=== PATIENT | female | born 1940 | race Caucasian/White ===

== ENCOUNTER 2016-12-18 16:05 | Emergency (ER) | payer MEDICARE, OTHER ==
--- NOTE | 2016-12-18 16:16 | ER Document Report ---
ED Respiratory Problem - General Stated Complaint: DIFFICULTY BREATHING Time Seen by Provider: 12/18/16 16:11 Mode of Arrival: Stretcher Information source: Patient, Emergency Med Personnel TRAVEL OUTSIDE OF THE [place] IN LAST 30 DAYS: No - HPI Patient complains to provider of: Cough, Short of breath Onset: This morning Duration: Continuous Severity: Moderate Pain Level: 3 Context: Hx COPD, Smoker Short of Breath: Mild Chest pain/discomfort: Tightness Cough: Nonproductive Associated symptoms: Congestion, Cough, Short of breath, Wheezing Similar symptoms previously: Yes Recently seen / treated by doctor: Yes Notes: Patient is a 76-year-old female presenting to the emergency room via EMS today for complaints of shortness of breath, she states has been going on for some time now and she has not picked up her prescription for Advair and albuterol recently, she does not offer a reason as to why she is not done this, patient has a history of COPD and continues to smoke, when EMS arrived at the home she appeared to be in mild to moderate respiratory distress, they provided steroids and breathing treatments en route and on my initial evaluation patient reports feeling much better, she does admit to smoking, denies any chest pain, nonproductive cough, no fevers - Related Data Allergies/Adverse Reactions: No Known Allergies Allergy (Verified 12/07/14 14:43) Past Medical History - General Information source: Patient - Social History Smoking Status: Current Every Day Smoker Family History: Reviewed & Not Pertinent - Past Medical History Cardiac Medical History: Reports: Hx Hypertension Pulmonary Medical History: Reports: Hx COPD Endocrine Medical History: Reports: Hx Hypothyroidism Psychiatric Medical History: Reports: Hx Depression Past Surgical History: Reports: Hx Tonsillectomy - Immunizations Hx Pneumococcal Vaccination: 08/31/13 Review of Systems - Review of Systems Constitutional: No symptoms reported EENT: No symptoms reported Cardiovascular: No symptoms reported Respiratory: See HPI Gastrointestinal: No symptoms reported Genitourinary: No symptoms reported Female Genitourinary: No symptoms reported Musculoskeletal: No symptoms reported Skin: No symptoms reported Hematologic/Lymphatic: No symptoms reported Neurological/Psychological: No symptoms reported -: Yes All other systems reviewed and negative Physical Exam - Vital signs Vitals: Resp 24 H 12/18/16 17:43 Interpretation: Normal - General General appearance: Appears well, Alert - HEENT Head: Normocephalic, Atraumatic Eyes: Normal Pupils: PERRL - Respiratory Respiratory status: No respiratory distress Chest status: Nontender Breath sounds: Normal Chest palpation: Normal - Cardiovascular Rhythm: Regular Heart sounds: Normal auscultation Murmur: No - Abdominal Inspection: Normal Distension: No distension Bowel sounds: Normal Tenderness: Nontender Organomegaly: No organomegaly - Back Back: Normal, Nontender - Extremities General upper extremity: Normal inspection, Nontender, Normal color, Normal ROM , Normal temperature General lower extremity: Normal inspection, Nontender, Normal color, Normal ROM , Normal temperature, Normal weight bearing. No: Jonah's sign - Neurological Neuro grossly intact: Yes Cognition: Normal Orientation: AAOx4 Mary Coma Scale Eye Opening: Spontaneous [place] Coma Scale Verbal: Oriented Mary Coma Scale Motor: Obeys Commands [place] Coma Scale Total: 15 Speech: Normal Motor strength normal: LUE, RUE, LLE, RLE Sensory: Normal - Psychological Associated symptoms: Normal affect, Normal mood - Skin Skin Temperature: Warm Skin Moisture: Dry Skin Color: Normal Course - Re-evaluation Re-evalutation: 12/18/16 18:56 Patient reports feeling much better, she is ambulating around the room without any difficulty, symptoms likely related to COPD exacerbation as patient continues to smoke, she reports that she is out of Advair and albuterol and therefore will be per given a prescription for these medications, and otherwise discharged with instructions for follow-up and smoking cessation instructions, patient acknowledges understanding and agreement with this plan - Vital Signs Vital signs: Temp Pulse Resp BP Pulse Ox 97.7 F 57 L 20 147/81 H 98 12/18/16 19:33 12/18/16 19:33 12/18/16 19:33 12/18/16 19:33 12/18/16 19:33 - Laboratory Result Diagrams: 12/18/16 17:15 12/18/16 17:15 Laboratory results interpreted by me: 12/18/16 12/18/16 12/18/16 17:15 17:15 17:15 Hgb 9.8 L Hct 30.8 L MCV 76 L MCH 24.1 L RDW 17.1 H Seg Neutrophils % 85.2 H Lymphocytes % 10.2 L Potassium 3.3 L Est GFR (Non-Af Amer) 59 L AST 13 L TSH 10.90 H Urine Blood 12/18/16 17:15 Hgb Hct MCV MCH RDW Seg Neutrophils % Lymphocytes % Potassium Est GFR (Non-Af Amer) AST TSH Urine Blood SMALL H - Diagnostic Test Radiology reviewed: Image reviewed, Reports reviewed - EKG Interpretation by Me EKG shows normal: Sinus rhythm Rate: Bradycardia Rhythm: PVC's Discharge - Discharge Clinical Impression: COPD (chronic obstructive pulmonary disease) Qualifiers: COPD type: chronic bronchitis Chronic bronchitis type: simple Qualified Code(s) : J41.0 - Simple chronic bronchitis Condition: Stable Disposition: HOME, SELF-CARE Instructions: Chronic Obstructive Lung Disease ([facility]) Additional Instructions: Follow up with your primary care provider in one to 2 days. Return to the emergency room immediately if symptoms worsen or any additional concerns. Quit smoking Prescriptions: Albuterol Sulfate [Proair HFA Inhalation Aerosol 8.5 gm MDI] 1 puff IH Q4 PRN # 1 mdi PRN Reason: Albuterol Sulfate [Albuterol Sulfate 2.5mg/3 mL] 1 vial IH Q4 PRN #30 vial PRN Reason: Fluticasone/Salmeterol [Advair 250-50 Diskus 28 dose] 1 inh IH Q12H #1 inhaler
--- NOTE | 2016-12-18 16:55 | RADIOLOGY REPORT (SQ) ---
EXAM DESCRIPTION: CHEST SINGLE VIEW COMPLETED DATE/TIME: 12/18/2016 4:43 pm REASON FOR STUDY: db COMPARISON: 08/29/2013 EXAM PARAMETERS: NUMBER OF VIEWS: One view. TECHNIQUE: Single frontal radiographic view of the chest acquired. RADIATION DOSE: NA LIMITATIONS: None. FINDINGS: LUNGS AND PLEURA: No opacities, masses or pneumothorax. No pleural effusion. MEDIASTINUM AND HILAR STRUCTURES: No masses. Contour normal. HEART AND VASCULAR STRUCTURES: Heart normal in size. Normal vasculature. BONES: Old rib fractures on the left. HARDWARE: None in the chest. OTHER: No other significant finding. IMPRESSION: NO ACUTE RADIOGRAPHIC FINDING IN THE CHEST. TECHNICAL DOCUMENTATION: JOB ID: [id number]
[2016-12-18 17:38] LABS: APPEARANCE,URINE CLEAR; BILIRUBIN,URINE NEGATIVE (NEGATIVE); GLUCOSE, URINE NEGATIVE (NEGATIVE); KETONES,URINE NEGATIVE (NEGATIVE); LEUKOCYTE ESTERASE,URINE NEGATIVE (NEGATIVE); NITRITE,URINE NEGATIVE (NEGATIVE); PROTEIN,URINE NEGATIVE (NEGATIVE); URINE SPECIFIC GRAVITY 1.002; UROBILINOGEN,URINE NEGATIVE mg/dL (<2.0)
[2016-12-18 17:43] LABS: ABSOLUTE BASOPHILS # (AUTO) 0.1 10^3/uL (0.0-0.2); ABSOLUTE LYMPHOCYTES (AUTO) 0.7 10^3/uL (0.5-4.7); ABSOLUTE MONOCYTES (AUTO) 0.2 10^3/uL (0.1-1.4); ABSOLUTE NEUT (AUTO) 5.8 10^3/uL (1.7-8.2); BASOPHILS % (AUTO) 0.9 % (0-2); EOSINOPHILS % (AUTO) 0.2 % (0-6); HEMATOCRIT 30.8 % (36.0-47.0); HEMOGLOBIN 9.8 g/dL (12.0-15.5); HGB HCT DIFFERENCE -1.4; LYMPHOCYTES % (AUTO) 10.2 % (13-45); MEAN CORPUSCULAR HEMOGLOBIN 24.1 pg (27.0-33.4); MEAN CORPUSCULAR VOLUME 76 fl (80-97); MONOCYTES % (AUTO) 3.5 % (3-13); RED BLOOD COUNT 4.08 10^6/uL (3.72-5.28); RED CELL DISTRIBUTION WIDTH 17.1 % (11.5-14.0); SEGMENTED NEUTROPHILS % (AUTO) 85.2 % (42-78); WHITE BLOOD COUNT 6.8 10^3/uL (4.0-10.5)
[2016-12-18 18:03] LABS: ALANINE AMINOTRANSFERASE 12 U/L (9-52); ALBUMIN 3.6 g/dL (3.5-5.0); ALKALINE PHOSPHATASE 77 U/L (38-126); ANION GAP 10 (5-19); ASPARTATE AMINO TRANSFERASE 13 U/L (14-36); BILIRUBIN,DIRECT 0.3 mg/dL (0.0-0.4); BILIRUBIN,TOTAL 0.4 mg/dL (0.2-1.3); BLOOD UREA NITROGEN 9 mg/dL (7-20); CALCIUM 8.9 mg/dL (8.4-10.2); CARBON DIOXIDE 26 mmol/L (22-30); CHLORIDE 106 mmol/L (98-107); CREATININE RESULT 0.93 mg/dL (0.52-1.25); GLUCOSE 99 mg/dL (75-110); POTASSIUM 3.3 mmol/L (3.6-5.0); SODIUM 141.8 mmol/L (137-145); TOTAL PROTEIN 6.4 g/dL (6.3-8.2)
--- NOTE | 2016-12-18 18:25 | EKG REPORT ---
SEVERITY:- ABNORMAL ECG - SINUS WITH PVC VENTRICULAR PREMATURE COMPLEX BORDERLINE T ABNORMALITIES, ANT-LAT LEADS : Confirmed by: Josafat Blanco MD 18-Dec-2016 18:24:10
[2016-12-18 19:35] VITALS: BP 147/81
== END 2016-12-18 19:32 | disposition home or self-care (01) ==
LOC: ER 16:05
DX: J41.0 Simple chronic bronchitis (principal); F17.200 Nicotine dependence, unspecified, uncomplicated; I10 Essential (primary) hypertension; E03.9 Hypothyroidism, unspecified
CPT/HCPCS: 36415; 71010; 80053; 81001; 84443; 85025; 87086; 93005; 93010; 99285

== ENCOUNTER 2017-06-22 16:22 | Inpatient (IN) | payer MEDICARE, OTHER ==
--- NOTE | 2017-06-22 16:45 | RADIOLOGY REPORT (SQ) ---
EXAM DESCRIPTION: CHEST SINGLE VIEW COMPLETED DATE/TIME: 06/22/2017 4:36 pm REASON FOR STUDY: bed 10 db COMPARISON: 12/18/2016 EXAM PARAMETERS: NUMBER OF VIEWS: One view. TECHNIQUE: Single frontal radiographic view of the chest acquired. RADIATION DOSE: NA LIMITATIONS: None. FINDINGS: LUNGS AND PLEURA: No opacities, masses or pneumothorax. No pleural effusion. MEDIASTINUM AND HILAR STRUCTURES: No masses. Contour normal. HEART AND VASCULAR STRUCTURES: Heart normal in size. Normal vasculature. BONES: No acute findings. HARDWARE: None in the chest. OTHER: No other significant finding. IMPRESSION: NO ACUTE RADIOGRAPHIC FINDING IN THE CHEST. TECHNICAL DOCUMENTATION: JOB ID: [id number] [employer]- All Rights Reserved Reading location - IP/workstation name: [email or web address]
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
[2017-06-22 17:28] LABS: ABSOLUTE BASOPHILS # (AUTO) 0.1 10^3/uL (0.0-0.2); ABSOLUTE LYMPHOCYTES (AUTO) 1.2 10^3/uL (0.5-4.7); ABSOLUTE MONOCYTES (AUTO) 0.7 10^3/uL (0.1-1.4); ABSOLUTE NEUT (AUTO) 5.5 10^3/uL (1.7-8.2); BASOPHILS % (AUTO) 1.2 % (0-2); EOSINOPHILS % (AUTO) 0.5 % (0-6); HEMATOCRIT 32.1 % (36.0-47.0); HEMOGLOBIN 10.2 g/dL (12.0-15.5); LYMPHOCYTES % (AUTO) 16.3 % (13-45); MEAN CORPUSCULAR HGB CONC 31.8 g/dL (32.0-36.0); MEAN CORPUSCULAR VOLUME 76 fl (80-97); PLATELET COUNT 336 10^3/uL (150-450); RED BLOOD COUNT 4.25 10^6/uL (3.72-5.28); RED CELL DISTRIBUTION WIDTH 16.3 % (11.5-14.0); TOTAL CELLS COUNTED % (AUTO) 100 %; WHITE BLOOD COUNT 7.6 10^3/uL (4.0-10.5)
[2017-06-22] MEDS ORDERED: IPRATROPIUM/ALBUTEROL 0.5-2.5 MG/3 ML AMPUL NEB ONE ×2 (17:38→17:47)
[2017-06-22 17:42] LABS: ALANINE AMINOTRANSFERASE 20 U/L (9-52); ALBUMIN 4.1 g/dL (3.5-5.0); ALKALINE PHOSPHATASE 98 U/L (38-126); ANION GAP 12 (5-19); ASPARTATE AMINO TRANSFERASE 14 U/L (14-36); BILIRUBIN,DIRECT 0.3 mg/dL (0.0-0.4); BILIRUBIN,TOTAL 0.3 mg/dL (0.2-1.3); BLOOD UREA NITROGEN 15 mg/dL (7-20); CALCIUM 10.6 mg/dL (8.4-10.2); CARBON DIOXIDE 30 mmol/L (22-30); CHLORIDE 98 mmol/L (98-107); CREATINE KINASE 35 U/L (30-135); GLUCOSE 150 mg/dL (75-110); POTASSIUM 4.2 mmol/L (3.6-5.0); SODIUM 139.5 mmol/L (137-145); TOTAL PROTEIN 7.3 g/dL (6.3-8.2)
[2017-06-22 17:47] LABS: APPEARANCE,URINE CLEAR; BILIRUBIN,URINE NEGATIVE (NEGATIVE); COLOR,URINE STRAW; GLUCOSE, URINE NEGATIVE (NEGATIVE); KETONES,URINE NEGATIVE (NEGATIVE); LEUKOCYTE ESTERASE,URINE NEGATIVE (NEGATIVE); NITRITE,URINE NEGATIVE (NEGATIVE); PROTEIN,URINE NEGATIVE (NEGATIVE); URINE SPECIFIC GRAVITY 1.005; UROBILINOGEN,URINE NEGATIVE mg/dL (<2.0)
[2017-06-22 17:54] LABS: CREATINE KINASE MB 0.59 ng/mL (<4.55)
[2017-06-22 17:55] LABS: TROPONIN I < 0.012 ng/mL
[2017-06-22] MEDS ORDERED: ONDANSETRON HCL INJ/PF 4 MG/2 ML SDV IV PRN (18:47)
[2017-06-22] MEDS ORDERED: IPRATROPIUM/ALBUTEROL 0.5-2.5 MG/3 ML AMPUL NEB PRN (19:02)
--- NOTE | 2017-06-22 19:11 | PDOC H&P ---
History of Present Illness Admission Date/PCP: 06/22/17 18:10 Patient complains of: Short of breath History of Present Illness: YAEL FRANCISCO is a 76 year old female with long-standing COPD who continues to smoke. For the last few days she has been getting progressively more short of breath, she denies any change in her cough, has had no hemoptysis, no fevers or chills, and no sick contacts. She denies any chest pain, leg pain or swelling. Past Medical History Cardiac Medical History: Reports: Hypertension Pulmonary Medical History: Reports: Chronic Obstructive Pulmonary Disease (COPD) Neurological History Note: Very diminished hearing. Only fragmentary communication is possible Endocrine Medical History: Reports: Hypothyroidism Psychiatric Medical History: Reports: Depression Past Surgical History Past Surgical History: Reports: Tonsillectomy Social History Smoking Status: Current Every Day Smoker Hx Recreational Drug Use: No Hx Prescription Drug Abuse: No Family History Family History: Reviewed & Not Pertinent Parental Family History Reviewed: Yes Children Family History Reviewed: Yes Sibling(s) Family History Reviewed.: Yes Medication/Allergy Allergies/Adverse Reactions: No Known Allergies Allergy (Verified 06/22/17 16:29) Review of Systems All systems: reviewed and no additional remarkable complaints except as stated Physical Exam Vital Signs: Temp Pulse Resp BP Pulse Ox 24 H 171/75 H 95 06/22/17 17:01 06/22/17 17:00 06/22/17 17:17 General appearance: PRESENT: no acute distress, thin Respiratory exam: PRESENT: clear to auscultation suman, decreased breath sounds, prolonged expiratory phas Cardiovascular exam: PRESENT: RRR GI/Abdominal exam: PRESENT: soft Musculoskeletal exam: PRESENT: normal inspection Neurological exam: PRESENT: alert, CN II-XII grossly intact - Except for her hearing which is markedly diminished Psychiatric exam: PRESENT: flat affect Results Impressions: Chest X-Ray 06/22/17 16:24 IMPRESSION: NO ACUTE RADIOGRAPHIC FINDING IN THE CHEST. Assessment & Plan - Diagnosis (1) COPD exacerbation Is this a current diagnosis for this admission?: Yes Plan: Steroids, nebulizers, wean oxygen as tolerated (2) Acute chronic obstructive pulmonary disease with respiratory failure Is this a current diagnosis for this admission?: Yes (3) Decreased hearing of both ears Is this a current diagnosis for this admission?: Yes (4) Acquired hypothyroidism Is this a current diagnosis for this admission?: Yes Plan: Continue home medications
[2017-06-22] MEDS ORDERED: ENOXAPARIN SODIUM INJ 30 MG/0.3 ML DISP.SYRIN SUBCUT ONE (20:00)
[2017-06-22] MEDS: IPRATROPIUM/ALBUTEROL 0.5-2.5 MG/3 ML AMPUL NEB SCH (20:11)
--- NOTE | 2017-06-22 20:58 | EKG REPORT ---
SEVERITY:- NORMAL ECG - SINUS RHYTHM : Confirmed by: Cliff Amaya 22-Jun-2017 20:57:14
[2017-06-22] MEDS ORDERED: FAMOTIDINE 20 MG TABLET PO SCH (22:00)
[2017-06-23] MEDS: FAMOTIDINE 20 MG TABLET PO SCH ×2 (00:40→21:01)
[2017-06-23] MEDS: METHYLPREDNISOLONE INJ 40 MG/1 ML SDV IV SCH ×2 (00:41→05:56)
[2017-06-23] MEDS: IPRATROPIUM/ALBUTEROL 0.5-2.5 MG/3 ML AMPUL NEB SCH ×4 (08:08→20:24)
[2017-06-23] MEDS ORDERED: ENOXAPARIN SODIUM INJ 40 MG/0.4 ML DISP.SYRIN SUBCUT SCH (10:00)
[2017-06-23] MEDS ORDERED: NICOTINE 21 MG/24 HR PATCH.TD24 TD ONE (11:00)
--- NOTE | 2017-06-23 11:27 | PDOC PROGRESS REPORT ---
Subjective Progress Note for:: 06/23/17 Subjective:: Feeling some better but still quite short of breath with any exertion Reason For Visit: COPD EXAC Physical Exam Vital Signs: Temp Pulse Resp BP Pulse Ox 98.0 F 85 18 138/71 H 96 06/23/17 08:14 06/23/17 08:14 06/23/17 08:14 06/23/17 08:14 06/23/17 08:14 Intake & Output 06/22/17 06/23/17 06/24/17 06:59 06:59 06:59 Weight 41 kg General appearance: PRESENT: no acute distress, hard of hearing - Extremely, other - Cachectic. Appears considerably older than her chronological age Neck exam: PRESENT: other - Supraclavicular wasting Respiratory exam: PRESENT: clear to auscultation suman, decreased breath sounds - Almost none, prolonged expiratory phas Cardiovascular exam: PRESENT: RRR GI/Abdominal exam: PRESENT: soft Neurological exam: PRESENT: alert Psychiatric exam: PRESENT: normal mood Skin exam: PRESENT: warm Results Impressions: Chest X-Ray 06/22/17 16:24 IMPRESSION: NO ACUTE RADIOGRAPHIC FINDING IN THE CHEST. Assessment & Plan - Diagnosis (1) COPD exacerbation Is this a current diagnosis for this admission?: Yes Plan: Transition to oral steroids, continue nebulizers, nicotine replacement, continue aggressive pulmonary toilet, and wean oxygen as tolerated. (2) Acute chronic obstructive pulmonary disease with respiratory failure Is this a current diagnosis for this admission?: Yes (3) Decreased hearing of both ears Is this a current diagnosis for this admission?: Yes Plan: Limits conversation significantly (4) Acquired hypothyroidism Is this a current diagnosis for this admission?: Yes Plan: Continue home medications
[2017-06-23] MEDS: ENOXAPARIN SODIUM INJ 30 MG/0.3 ML DISP.SYRIN SUBCUT SCH (14:56)
[2017-06-23] MEDS: ACETAMINOPHEN 325 MG TABLET PO PRN (21:05)
[2017-06-23 22:24] LABS: ALANINE AMINOTRANSFERASE 14 U/L (9-52); ALBUMIN 3.9 g/dL (3.5-5.0); ALKALINE PHOSPHATASE 78 U/L (38-126); ANION GAP 13 (5-19); ASPARTATE AMINO TRANSFERASE 14 U/L (14-36); BILIRUBIN,DIRECT 0.1 mg/dL (0.0-0.4); BILIRUBIN,TOTAL 0.1 mg/dL (0.2-1.3); BLOOD UREA NITROGEN 25 mg/dL (7-20); CALCIUM 10.3 mg/dL (8.4-10.2); CARBON DIOXIDE 27 mmol/L (22-30); CHLORIDE 96 mmol/L (98-107); GLUCOSE 146 mg/dL (75-110); POTASSIUM 4.2 mmol/L (3.6-5.0); SODIUM 135.9 mmol/L (137-145); TOTAL PROTEIN 6.4 g/dL (6.3-8.2)
[2017-06-23 22:26] LABS: ACETAMINOPHEN < 10 ug/mL (10-30)
--- NOTE | 2017-06-24 01:12 | Physician Advisory Note ---
Physician Advisor ProgressNote .: Pursuant to the plan for [facility], I have reviewed the medical record for this patient. Physician Advisor Statement: Please consider documenting, if you agree: 1. "underweight with protein-calorie malnutrition [state mild, mod, or severe] with BMI 17.7, ____[?wt loss, ?appetite loss, ]" [if possible, give specifics on intake, wt loss, loss of SQ fat & muscle mass, diminished hand advanced manager strength, & clinical importance such as (A) nutritional assessment ordered, (B) modified diet or supplements ordered, (C) additional labs ordered, (D) prolonged wound healing time, (E) delayed infxn clearance] - Documentation already states "cachectic", & "supraclavicular wasting" ... 2. When/if stating "Respiratory Failure", please document whether that is Acute or Chronic, & supporting info (low O2 sats/pO2 or P/F ratio, associated with evidence of increased work of breathing, if Acute ["labored", or " accessory muscle use", or ...]; chronic O2 requirement amount or chronic hypercarbia if Chronic), or clarify if that dx was ruled out. Thanks, and welcome to [facility]! MD Felisa [facility] Physician Advisor - Please text, call or email if any documentation ?'s or anything I can do for you: [phone], [email or web address]
[2017-06-24] MEDS: IPRATROPIUM/ALBUTEROL 0.5-2.5 MG/3 ML AMPUL NEB SCH ×4 (08:08→21:08)
[2017-06-24] MEDS ORDERED: BISACODYL 10 MG SUPP.RECT PR ONE (10:00)
[2017-06-24] MEDS ORDERED: PREDNISONE 20 MG TABLET PO SCH (10:00)
[2017-06-24] MEDS: NICOTINE 21 MG/24 HR PATCH.TD24 TD SCH (10:09)
[2017-06-24] MEDS: ENOXAPARIN SODIUM INJ 30 MG/0.3 ML DISP.SYRIN SUBCUT SCH (10:11)
[2017-06-24] MEDS ORDERED: TUBERCULIN,PURIF.PROT.DERIV. 5 TU/0.1 ML TEST 1 ML VIAL ID PRN (11:00)
[2017-06-24] MEDS ORDERED: MAGNESIUM CITRATE 296 ML BOTTLE PO ONE (14:05)
--- NOTE | 2017-06-24 14:11 | PDOC PROGRESS REPORT ---
Subjective Progress Note for:: 06/24/17 Subjective:: Reports feeling very nauseated. States she has not moved her bowels in about 2 weeks. Reason For Visit: COPD EXAC Physical Exam Vital Signs: Temp Pulse Resp BP Pulse Ox 97.8 F 83 16 111/73 99 06/24/17 11:03 06/24/17 11:03 06/24/17 11:03 06/24/17 11:03 06/24/17 11:03 Intake & Output 06/23/17 06/24/17 06/25/17 06:59 06:59 06:59 Intake Total 600 444 Balance 600 444 Weight 41 kg General appearance: PRESENT: no acute distress, hard of hearing - Very. Exam: Cachectic, appears older than her chronological age Respiratory exam: PRESENT: clear to auscultation suman, decreased breath sounds, prolonged expiratory phas Cardiovascular exam: PRESENT: RRR GI/Abdominal exam: PRESENT: soft Extremities exam: PRESENT: other - No edema Neurological exam: PRESENT: alert Psychiatric exam: PRESENT: appropriate affect Skin exam: PRESENT: warm Results Laboratory Results: 06/23/17 21:52 06/23/17 21:52 Sodium 135.9 L Potassium 4.2 Chloride 96 L Carbon Dioxide 27 Anion Gap 13 BUN 25 H Creatinine 1.19 Est GFR ( Amer) 54 L Est GFR (Non-Af Amer) 44 L Glucose 146 H Calcium 10.3 H Total Bilirubin 0.1 L AST 14 ALT 14 Alkaline Phosphatase 78 Total Protein 6.4 Albumin 3.9 Impressions: Chest X-Ray 06/22/17 16:24 IMPRESSION: NO ACUTE RADIOGRAPHIC FINDING IN THE CHEST. Assessment & Plan - Diagnosis (1) COPD exacerbation Is this a current diagnosis for this admission?: Yes Plan: Continue current medications. I would anticipate she could be discharged once we have identified in place for her to live. Apparently she is homeless. We will need to put her on usual COPD medications. (2) Acute chronic obstructive pulmonary disease with respiratory failure Is this a current diagnosis for this admission?: Yes Plan: She was hypoxic on presentation that is now resolved. She appears to be breathing comfortably on room air. (3) Decreased hearing of both ears Is this a current diagnosis for this admission?: Yes Plan: Limits conversation significantly (4) Acquired hypothyroidism Is this a current diagnosis for this admission?: Yes Plan: Continue home medications
[2017-06-24] MEDS: ACETAMINOPHEN 325 MG TABLET PO PRN (18:24)
[2017-06-24] MEDS: FAMOTIDINE 20 MG TABLET PO SCH (21:21)
[2017-06-24] MEDS ORDERED: LISINOPRIL 10 MG TABLET PO SCH (22:00)
[2017-06-25] MEDS: IPRATROPIUM/ALBUTEROL 0.5-2.5 MG/3 ML AMPUL NEB SCH ×4 (08:42→20:27)
[2017-06-25] MEDS: PREDNISONE 20 MG TABLET PO SCH (09:50)
[2017-06-25] MEDS: AMLODIPINE BESYLATE 10 MG TABLET PO SCH (09:50)
[2017-06-25] MEDS: NICOTINE 21 MG/24 HR PATCH.TD24 TD SCH (09:50)
[2017-06-25] MEDS: POLYETHYLENE GLYCOL 3350 POWDER 17 GM/1 PACKET PO SCH (09:51)
[2017-06-25] MEDS: ENOXAPARIN SODIUM INJ 30 MG/0.3 ML DISP.SYRIN SUBCUT SCH (09:51)
[2017-06-25] MEDS: ACETAMINOPHEN 325 MG TABLET PO PRN (15:26)
[2017-06-25] MEDS: FAMOTIDINE 20 MG TABLET PO SCH (21:51)
[2017-06-25] MEDS: LISINOPRIL 10 MG TABLET PO SCH (23:42)
[2017-06-26] MEDS: ACETAMINOPHEN 325 MG TABLET PO PRN (07:32)
[2017-06-26] MEDS: IPRATROPIUM/ALBUTEROL 0.5-2.5 MG/3 ML AMPUL NEB SCH ×4 (08:04→19:32)
[2017-06-26] MEDS: NICOTINE 21 MG/24 HR PATCH.TD24 TD SCH (09:13)
[2017-06-26] MEDS: PREDNISONE 20 MG TABLET PO SCH (09:13)
[2017-06-26] MEDS: AMLODIPINE BESYLATE 10 MG TABLET PO SCH (09:13)
[2017-06-26] MEDS: POLYETHYLENE GLYCOL 3350 POWDER 17 GM/1 PACKET PO SCH ×2 (09:13→17:09)
[2017-06-26] MEDS: ENOXAPARIN SODIUM INJ 30 MG/0.3 ML DISP.SYRIN SUBCUT SCH (09:14)
[2017-06-26] MEDS: PHARMACY COMMUNICATION ORDER MC SCH (09:24)
--- NOTE | 2017-06-26 11:40 | PDOC PROGRESS REPORT ---
Subjective Progress Note for:: 06/26/17 Subjective:: No complaints. She is still has not moved her bowels. Reason For Visit: COPD EXAC Physical Exam Vital Signs: Temp Pulse Resp BP Pulse Ox 98.1 F 89 20 158/82 H 97 06/26/17 09:06 06/26/17 09:13 06/26/17 09:06 06/26/17 09:13 06/26/17 09:06 Intake & Output 06/25/17 06/26/17 06/27/17 06:59 06:59 06:59 Intake Total 2013 240 Output Total 4 Balance 2009 240 Weight 40.9 kg 42.1 kg General appearance: PRESENT: no acute distress, disheveled, hard of hearing - Extremely Respiratory exam: PRESENT: clear to auscultation suman, decreased breath sounds, prolonged expiratory phas Cardiovascular exam: PRESENT: RRR GI/Abdominal exam: PRESENT: soft Neurological exam: PRESENT: alert, oriented to person, oriented to place, oriented to time, oriented to situation Focused psych exam: PRESENT: other - Seems to have conversations with people not present. But these do not appear to cause her any problems or distress Skin exam: PRESENT: warm Results Laboratory Results: 06/23/17 21:52 Impressions: Chest X-Ray 06/22/17 16:24 IMPRESSION: NO ACUTE RADIOGRAPHIC FINDING IN THE CHEST. Assessment & Plan - Diagnosis (1) COPD exacerbation Is this a current diagnosis for this admission?: Yes Plan: Continue current medications. I would anticipate she could be discharged once we have identified in place for her to live. Apparently she is homeless. I understand an assisted living and has been identified where she can go on Wednesday. We completed a 5 day course of oral steroids and then will need to put her on usual COPD medications. (2) Acute chronic obstructive pulmonary disease with respiratory failure Is this a current diagnosis for this admission?: Yes Plan: She was hypoxic on presentation that is now resolved. She appears to be breathing comfortably on room air. (3) Decreased hearing of both ears Is this a current diagnosis for this admission?: Yes Plan: Nearly deaf. Limits conversation significantly (4) Acquired hypothyroidism Is this a current diagnosis for this admission?: Yes Plan: Continue home medications
[2017-06-26] MEDS ORDERED: BISACODYL 10 MG SUPP.RECT PR ONE (11:45)
[2017-06-26] MEDS ORDERED: DOCUSATE SODIUM 100 MG CAPSULE PO ONE (12:00)
[2017-06-26] MEDS: DOCUSATE SODIUM 100 MG CAPSULE PO SCH (17:08)
[2017-06-26] MEDS: LISINOPRIL 10 MG TABLET PO SCH (22:54)
[2017-06-26] MEDS: FAMOTIDINE 20 MG TABLET PO SCH (22:54)
[2017-06-27] MEDS: ACETAMINOPHEN 325 MG TABLET PO PRN (07:30)
[2017-06-27] MEDS: IPRATROPIUM/ALBUTEROL 0.5-2.5 MG/3 ML AMPUL NEB SCH ×2 (07:47→11:45)
[2017-06-27] MEDS: ENOXAPARIN SODIUM INJ 30 MG/0.3 ML DISP.SYRIN SUBCUT SCH (09:20)
[2017-06-27] MEDS: NICOTINE 21 MG/24 HR PATCH.TD24 TD SCH (09:21)
[2017-06-27] MEDS: PREDNISONE 20 MG TABLET PO SCH (09:21)
[2017-06-27] MEDS: DOCUSATE SODIUM 100 MG CAPSULE PO SCH ×2 (09:22→17:05)
[2017-06-27] MEDS: POLYETHYLENE GLYCOL 3350 POWDER 17 GM/1 PACKET PO SCH ×2 (09:22→17:05)
[2017-06-27] MEDS: AMLODIPINE BESYLATE 10 MG TABLET PO SCH (09:22)
[2017-06-27] MEDS: PHARMACY COMMUNICATION ORDER MC SCH (09:26)
[2017-06-27] MEDS ORDERED: LISINOPRIL 10 MG TABLET PO SCH (11:18)
--- NOTE | 2017-06-27 11:19 | PDOC PROGRESS REPORT ---
Subjective Progress Note for:: 06/27/17 Subjective:: 76 year old female with past medical history of Hypertension COPD Continued tobacco use Hearing impairment Hypothyroidism Depression She presented to the hospital on June 22 with shortness of breath and was diagnosed with COPD exacerbation and was treated with nebulizers steroids and supplemental oxygen. No complaints at present. Plan for discharge to assisted living on June 28. Reason For Visit: COPD EXAC Physical Exam Vital Signs: Temp Pulse Resp BP Pulse Ox 97.7 F 67 18 175/77 H 98 06/27/17 07:08 06/27/17 07:10 06/27/17 07:08 06/27/17 07:10 06/27/17 07:08 Intake & Output 06/26/17 06/27/17 06/28/17 06:59 06:59 06:59 Intake Total 240 1260 960 Balance 240 1260 960 Weight 42.1 kg 41.3 kg General appearance: PRESENT: no acute distress Head exam: PRESENT: normocephalic Eye exam: ABSENT: scleral icterus Ear exam: PRESENT: normal external ear exam Mouth exam: PRESENT: neck supple Neck exam: ABSENT: tracheal deviation Respiratory exam: PRESENT: symmetrical, unlabored. ABSENT: crackles Cardiovascular exam: PRESENT: RRR GI/Abdominal exam: PRESENT: normal bowel sounds, soft Rectal exam: PRESENT: deferred Neurological exam: PRESENT: alert, awake, oriented to person, oriented to place Psychiatric exam: PRESENT: appropriate affect Skin exam: ABSENT: petechiae Results Laboratory Results: 06/23/17 21:52 Impressions: Chest X-Ray 06/22/17 16:24 IMPRESSION: NO ACUTE RADIOGRAPHIC FINDING IN THE CHEST. Assessment & Plan - Diagnosis (1) Acute chronic obstructive pulmonary disease with respiratory failure Is this a current diagnosis for this admission?: Yes Plan: Due to COPD exacerbation. See below. (2) COPD exacerbation Is this a current diagnosis for this admission?: Yes Plan: Nebulizers steroids taper. Plan to discharge in the next 24 hours. (3) Decreased hearing of both ears Is this a current diagnosis for this admission?: Yes (4) Acquired hypothyroidism Is this a current diagnosis for this admission?: No (5) Depressed Is this a current diagnosis for this admission?: No (6) Hypertension Qualifiers: Hypertension type: essential hypertension Qualified Code(s): I10 - Essential (primary) hypertension Is this a current diagnosis for this admission?: Yes Plan: BP running high. Continue Norvasc. Increase lisinopril dose to 40 mg - Time Time Spent with patient: 25-34 minutes
[2017-06-27] MEDS: FAMOTIDINE 20 MG TABLET PO SCH (22:40)
[2017-06-28] MEDS: ACETAMINOPHEN 325 MG TABLET PO PRN (07:52)
[2017-06-28] MEDS: ENOXAPARIN SODIUM INJ 30 MG/0.3 ML DISP.SYRIN SUBCUT SCH (09:18)
[2017-06-28] MEDS: AMLODIPINE BESYLATE 10 MG TABLET PO SCH (09:19)
[2017-06-28] MEDS: PREDNISONE 20 MG TABLET PO SCH (09:20)
[2017-06-28] MEDS: DOCUSATE SODIUM 100 MG CAPSULE PO SCH (09:20)
[2017-06-28] MEDS: NICOTINE 21 MG/24 HR PATCH.TD24 TD SCH (09:21)
[2017-06-28] MEDS: POLYETHYLENE GLYCOL 3350 POWDER 17 GM/1 PACKET PO SCH (09:32)
--- NOTE | 2017-06-28 10:32 | PDOC DISCHARGE SUMMARY ---
General - Admit/Disc Date/PCP Admission Date/Primary Care Provider: 06/22/17 18:10 No PCP Listed Discharge Date: 06/28/17 - Discharge Diagnosis (1) Acute chronic obstructive pulmonary disease with respiratory failure Is this a current diagnosis for this admission?: Yes (2) COPD exacerbation Is this a current diagnosis for this admission?: Yes (3) Decreased hearing of both ears Is this a current diagnosis for this admission?: Yes (4) Depressed Is this a current diagnosis for this admission?: No (5) Hypertension Is this a current diagnosis for this admission?: Yes - Additional Information Discharge Diet: As Tolerated Discharge Activity: Activity As Tolerated Prescriptions: Famotidine [Pepcid 20 mg Tablet] 20 mg PO QHS 5 Days #5 tablet Lisinopril [Prinivil 10 mg Tablet] 40 mg PO QHS 20 Days #20 tablet Albuterol Sulfate [Proair Respiclick] 90 mcg IH Q4HP PRN 30 Days #1 aer.pow.ba PRN Reason: Shortness Of Breath Amlodipine Besylate [Norvasc 10 mg Tablet] 10 mg PO DAILY 20 Days #20 tablet Prednisone [Deltasone 20 mg Tablet] 20 mg PO DAILY 5 Days #5 tablet Home Medications: Albuterol Sulfate [Proair Respiclick] 90 mcg IH Q4HP PRN 30 Days #1 aer.pow.ba 06/28/17 Amlodipine Besylate [Norvasc 10 mg Tablet] 10 mg PO DAILY 20 Days #20 tablet Docusate Sodium [Colace 100 mg Capsule] 100 mg PO BID capsule 06/28/17 Famotidine [Pepcid 20 mg Tablet] 20 mg PO QHS 5 Days #5 tablet 06/28/17 Lisinopril [Prinivil 10 mg Tablet] 40 mg PO QHS 20 Days #20 tablet 06/28/17 Nicotine [Nicoderm 21 mg/24 Hr Transderm Patch] 1 each TD DAILY patch.td24 Polyethylene Glycol 3350 [Miralax Powder 17 gm/Packet] 17 gm PO DAILY PRN powd.pack 06/28/17 Prednisone [Deltasone 20 mg Tablet] 20 mg PO DAILY 5 Days #5 tablet 06/28/17 History of Present Illness History of Present Illness: 76 year old female with past medical history of Hypertension COPD Continued tobacco use Hearing impairment Depression She presented to the hospital on June 22 with shortness of breath and was diagnosed with COPD exacerbation and was treated with nebulizers steroids and supplemental oxygen. BP was high and she was started on Amlodipine and Lisinopril. Her breathing has improved. No cough. Stable for discharge back to assisted living with PCP follow up within 1 week. Hospital Course Hospital Course: As above Physical Exam Vital Signs: Temp Pulse Resp BP Pulse Ox 98.1 F 74 16 167/80 H 99 06/28/17 07:25 06/28/17 07:25 06/28/17 07:25 06/28/17 07:25 06/28/17 07:25 Intake & Output 06/27/17 06/28/17 06/29/17 06:59 06:59 06:59 Intake Total 1260 2040 Balance 1260 2040 Weight 41.3 kg 41.3 kg 41.3 kg General appearance: PRESENT: no acute distress Head exam: PRESENT: normocephalic Respiratory exam: PRESENT: clear to auscultation suman, symmetrical, unlabored Cardiovascular exam: PRESENT: RRR Results Laboratory Results: 06/23/17 21:52 Impressions: Chest X-Ray 06/22/17 16:24 IMPRESSION: NO ACUTE RADIOGRAPHIC FINDING IN THE CHEST. Qualifiers - * PATEINT BEING DISCHARGED WITH ANY OF THE FOLLOWING DIAGNOSIS?: No Plan Time Spent: Greater than 30 Minutes
[2017-06-28 13:10] VITALS: BP 124/67
[2017-06-29] MEDS ORDERED: PREDNISONE 20 MG TABLET PO SCH (10:00)
== END 2017-06-28 14:10 | DRG 189 ==
LOC: ER 16:22 → EH 18:10 → UNDOADMIN 18:10 → 2S 06-23 01:50
PROVIDERS: ADMIT Internal Medicine; ATTEND Internal Medicine
DX: J96.01 Acute respiratory failure with hypoxia (principal); E44.0 Moderate protein-calorie malnutrition; J44.1 Chronic obstructive pulmonary disease with (acute) exacerbation; Z68.1 Body mass index [BMI] 19.9 or less, adult; I10 Essential (primary) hypertension; E03.9 Hypothyroidism, unspecified; H91.93 Unspecified hearing loss, bilateral; F17.210 Nicotine dependence, cigarettes, uncomplicated
CPT/HCPCS: 36415; 71045; 80053; 80307; 81001; 82550; 82553; 83540; 83605; 84484; 85025; 93005; 93010; 94640; 99285; J1650; J2920; J3490; J7512; J7620

== ENCOUNTER 2017-08-14 12:29 | Emergency (ER) | payer MEDICARE, OTHER ==
[2017-08-14] MEDS ORDERED: ASPIRIN 81 MG TABLET, CHEWABLE PO ONE (13:05)
[2017-08-14] MEDS ORDERED: IPRATROPIUM/ALBUTEROL 0.5-2.5 MG/3 ML AMPUL NEB ONE (13:06)
--- NOTE | 2017-08-14 13:20 | ER Document Report ---
ED General - General Chief Complaint: Cold Symptoms Stated Complaint: SINUS PRESSURE Time Seen by Provider: 08/14/17 13:05 Notes: 77-year-old female patient to the emergency department via EMS for evaluation of shortness of breath. States that she feels like it is hard to get air in. History of COPD. Denies any fever. Does have cough and wheezing. Patient is quite vague on her symptoms. There may be some dementia versus just severe hard of hearing. Denies any significant chest pain. TRAVEL OUTSIDE OF THE [place] IN LAST 30 DAYS: No - HPI Onset: Yesterday Onset/Duration: Gradual Severity: Mild Pain Level: 1 - Related Data Allergies/Adverse Reactions: No Known Allergies Allergy (Verified 08/14/17 12:31) Past Medical History - General Information source: Patient - Social History Smoking Status: Former Smoker Cigarette use (# per day): No Frequency of alcohol use: None Drug Abuse: None Lives with: Family Family History: Reviewed & Not Pertinent - Past Medical History Cardiac Medical History: Reports: Hx Hypertension Pulmonary Medical History: Reports: Hx COPD Endocrine Medical History: Reports: Hx Hypothyroidism Renal/ Medical History: Denies: Hx Peritoneal Dialysis Psychiatric Medical History: Reports: Hx Depression Past Surgical History: Reports: Hx Tonsillectomy - Immunizations Hx Pneumococcal Vaccination: 08/31/13 Review of Systems - Review of Systems Constitutional: No symptoms reported EENT: No symptoms reported Cardiovascular: No symptoms reported Respiratory: Cough, Short of breath Gastrointestinal: No symptoms reported Genitourinary: No symptoms reported Female Genitourinary: No symptoms reported Musculoskeletal: No symptoms reported Skin: No symptoms reported Hematologic/Lymphatic: No symptoms reported Neurological/Psychological: No symptoms reported Physical Exam - Vital signs Vitals: Temp Pulse Resp BP Pulse Ox 98.2 F 81 22 H 137/71 H 96 08/14/17 12:36 08/14/17 12:36 08/14/17 12:36 08/14/17 12:36 08/14/17 12:36 Interpretation: Normal - General General appearance: Appears well, Alert - HEENT Head: Normocephalic, Atraumatic Eyes: Normal Pupils: PERRL - Respiratory Respiratory status: No respiratory distress Chest status: Nontender Breath sounds: Wheezing, Other - Faint expiratory wheeze Chest palpation: Normal - Cardiovascular Rhythm: Regular Heart sounds: Normal auscultation Murmur: No - Abdominal Inspection: Normal Distension: No distension Bowel sounds: Normal Tenderness: Nontender Organomegaly: No organomegaly - Back Back: Normal, Nontender - Extremities General upper extremity: Normal inspection, Nontender, Normal color, Normal ROM , Normal temperature General lower extremity: Normal inspection, Nontender, Normal color, Normal ROM , Normal temperature, Normal weight bearing. No: Jonah's sign - Neurological Neuro grossly intact: Yes Cognition: Normal Orientation: AAOx4 Cosmos Coma Scale Eye Opening: Spontaneous Cosmos Coma Scale Verbal: Oriented Mary Coma Scale Motor: Obeys Commands Mary Coma Scale Total: 15 Speech: Normal Motor strength normal: LUE, RUE, LLE, RLE Sensory: Normal - Psychological Associated symptoms: Normal affect, Normal mood - Skin Skin Temperature: Warm Skin Moisture: Dry Skin Color: Normal Course - Re-evaluation Re-evalutation: 08/14/17 14:26 Chest x-ray relatively unchanged from prior. Labs baseline. Likely patient experienced some mild COPD exacerbation. Will treat aggressively based on her poor history. At this time though I think patient is stable for DC back to the [facility]. - Vital Signs Vital signs: Temp Pulse Resp BP Pulse Ox 98.2 F 81 22 H 137/71 H 96 08/14/17 12:36 08/14/17 12:36 08/14/17 12:36 08/14/17 12:36 08/14/17 13:38 - Laboratory Result Diagrams: 08/14/17 13:24 08/14/17 13:24 Laboratory results interpreted by me: 08/14/17 08/14/17 13:24 13:24 Hgb 10.6 L Hct 33.7 L MCV 77 L MCH 24.2 L MCHC 31.4 L RDW 17.7 H Est GFR ( Amer) 57 L Est GFR (Non-Af Amer) 47 L Calcium 10.3 H - EKG Interpretation by Ma EKG shows normal: Sinus rhythm, Craig, Intervals, QRS Complexes, ST-T Waves - Nonspecific T-wave abnormalities laterally. No change from prior. When compared to previous EKG there are: No significant change Discharge - Discharge Clinical Impression: COPD exacerbation Condition: Good Disposition: HOME, SELF-CARE Instructions: Chronic Obstructive Lung Disease ([facility]) Prescriptions: Amoxicillin 1 tab PO TID #21 tab Prednisone [Deltasone 20 mg Tablet] 3 tab PO DAILY 5 Days #15 tablet
[2017-08-14 13:37] LABS: ABSOLUTE BASOPHILS # (AUTO) 0.1 10^3/uL (0.0-0.2); ABSOLUTE EOSINOPHILS # (AUTO) 0.1 10^3/uL (0.0-0.6); ABSOLUTE LYMPHOCYTES (AUTO) 1.7 10^3/uL (0.5-4.7); ABSOLUTE MONOCYTES (AUTO) 0.8 10^3/uL (0.1-1.4); ABSOLUTE NEUT (AUTO) 7.6 10^3/uL (1.7-8.2); BASOPHILS % (AUTO) 1.4 % (0-2); EOSINOPHILS % (AUTO) 0.5 % (0-6); HEMATOCRIT 33.7 % (36.0-47.0); HEMOGLOBIN 10.6 g/dL (12.0-15.5); LYMPHOCYTES % (AUTO) 16.6 % (13-45); MEAN CORPUSCULAR HEMOGLOBIN 24.2 pg (27.0-33.4); MEAN CORPUSCULAR HGB CONC 31.4 g/dL (32.0-36.0); MEAN CORPUSCULAR VOLUME 77 fl (80-97); MONOCYTES % (AUTO) 7.7 % (3-13); PLATELET COUNT 322 10^3/uL (150-450); RED BLOOD COUNT 4.38 10^6/uL (3.72-5.28); RED CELL DISTRIBUTION WIDTH 17.7 % (11.5-14.0); SEGMENTED NEUTROPHILS % (AUTO) 73.8 % (42-78); TOTAL CELLS COUNTED % (AUTO) 100 %; WHITE BLOOD COUNT 10.3 10^3/uL (4.0-10.5)
[2017-08-14 13:55] LABS: ALANINE AMINOTRANSFERASE 14 U/L (9-52); ALBUMIN 3.9 g/dL (3.5-5.0); ALKALINE PHOSPHATASE 101 U/L (38-126); ANION GAP 9 (5-19); ASPARTATE AMINO TRANSFERASE 21 U/L (14-36); BILIRUBIN,DIRECT 0.2 mg/dL (0.0-0.4); BILIRUBIN,TOTAL 0.2 mg/dL (0.2-1.3); BLOOD UREA NITROGEN 20 mg/dL (7-20); CALCIUM 10.3 mg/dL (8.4-10.2); CARBON DIOXIDE 29 mmol/L (22-30); CHLORIDE 106 mmol/L (98-107); CREATINE KINASE 41 U/L (30-135); GLUCOSE 100 mg/dL (75-110); POTASSIUM 4.9 mmol/L (3.6-5.0); SODIUM 143.7 mmol/L (137-145)
--- NOTE | 2017-08-14 14:01 | RADIOLOGY REPORT (SQ) ---
EXAM DESCRIPTION: CHEST SINGLE VIEW COMPLETED DATE/TIME: 08/14/2017 1:45 pm REASON FOR STUDY: Shortness of breath. COMPARISON: 06/22/2017. EXAM PARAMETERS: NUMBER OF VIEWS: One view. TECHNIQUE: Single frontal radiographic view of the chest acquired. RADIATION DOSE: NA LIMITATIONS: None. FINDINGS: LUNGS AND PLEURA: Hyperinflation. No acute infiltrates or effusions. Calcified granuloma ta right lung base. Hyperinflation. MEDIASTINUM AND HILAR STRUCTURES: No masses. Contour normal. HEART AND VASCULAR STRUCTURES: The heart is normal with normal pulmonary vasculature. BONES: Old healed left rib fractures. . HARDWARE: None in the chest. OTHER: Chest leads in place. IMPRESSION: No significant interval change. TECHNICAL DOCUMENTATION: JOB ID: [id number] [employer]- All Rights Reserved Reading location - IP/workstation name: [email or web address]
[2017-08-14 14:07] LABS: CREATINE KINASE MB 0.74 ng/mL (<4.55); NT PRO BNP 400 pg/mL (<450)
[2017-08-14 14:08] LABS: TROPONIN I < 0.012 ng/mL
[2017-08-14] MEDS ORDERED: METHYLPREDNISOLONE INJ 125 MG/2 ML SDV IV ONE (14:25)
[2017-08-14] MEDS ORDERED: CEFTRIAXONE 1 GM/D5W RTU 1 GM/50 ML RTUPB IV ONE (14:26)
--- NOTE | 2017-08-14 16:20 | EKG REPORT ---
SEVERITY:- BORDERLINE ECG - SINUS RHYTHM BORDERLINE T WAVE ABNORMALITIES : Confirmed by: Jennifer Vega MD 14-Aug-2017 16:20:12
[2017-08-14 16:27] VITALS: BP 147/56
== END 2017-08-14 16:26 | disposition home or self-care (01) ==
LOC: ER 12:29
DX: J44.1 Chronic obstructive pulmonary disease with (acute) exacerbation (principal); R06.02 Shortness of breath; I10 Essential (primary) hypertension; R05 Cough; R94.31 Abnormal electrocardiogram [ECG] [EKG]; Z87.891 Personal history of nicotine dependence
CPT/HCPCS: 93005; 94640; 99284; 96375; 96365; 36415; 82553; 82550; 85025; 80053; 84484; 83880; 71045; 93010; A9270 ×2; J2930; J0696; J7620

== ENCOUNTER 2018-10-05 12:03 | Inpatient (IN) | payer MEDICARE, OTHER, MEDICAID ==
--- NOTE | 2018-10-05 13:05 | RADIOLOGY REPORT (SQ) ---
EXAM DESCRIPTION: HIP LEFT AP/LATERAL COMPLETED DATE/TIME: 10/05/2018 12:56 pm REASON FOR STUDY: bone tenderness COMPARISON: None. NUMBER OF VIEWS: Two views. TECHNIQUE: AP and frog-leg view of the left hip. LIMITATIONS: None. FINDINGS: MINERALIZATION: Normal. LEFT HIP: Mild joint space narrowing consistent with osteoarthritis. No acute fracture or dislocatio n. OPPOSITE HIP: Mild joint space narrowing. SOFT TISSUES: No findings. OTHER: No other significant finding. IMPRESSION: Mild bilateral degenerative changes. No acute fracture or dislocation. TECHNICAL DOCUMENTATION: JOB ID: [id number] [employer]- All Rights Reserved Reading location - IP/workstation name: [email or web address]
[2018-10-05] MEDS ORDERED: LORAZEPAM 0.5 MG TABLET PO ONE (13:14)
--- NOTE | 2018-10-05 13:33 | ER Document Report ---
Entered by GERARDO DAMON SCRIBE 10/05/18 1321 Acting as scribe for:CYNDEE MONTERO MD ED Hip Pain/Injury - General Chief Complaint: Hip Pain Stated Complaint: FALL/HIP PAIN Time Seen by Provider: 10/05/18 13:01 Mode of Arrival: Medic Information source: Patient Notes: 78-year-old female that presents to the emergency department today with complaints of left hip pain. Patient states she has had left hip and left knee pain for about 1 week and today she was walking from her room at the [facility] to the cafeteria when her left leg gave out and she fell. Patient complains of increased pain to her left hip now since the fall. TRAVEL OUTSIDE OF THE [place] IN LAST 30 DAYS: No - Related Data Allergies/Adverse Reactions: No Known Allergies Allergy (Verified 10/05/18 12:28) Past Medical History - General Information source: Patient - Social History Smoking Status: Former Smoker Cigarette use (# per day): No Frequency of alcohol use: None Drug Abuse: None Lives with: Family Family History: Reviewed & Not Pertinent Patient has suicidal ideation: No Patient has homicidal ideation: No - Past Medical History Cardiac Medical History: Reports: Hx Hypertension Pulmonary Medical History: Reports: Hx COPD Endocrine Medical History: Reports: Hx Hypothyroidism Psychiatric Medical History: Reports: Hx Depression Past Surgical History: Reports: Hx Tonsillectomy - Immunizations Hx Pneumococcal Vaccination: 08/31/13 Review of Systems - Review of Systems Constitutional: No symptoms reported EENT: No symptoms reported Cardiovascular: No symptoms reported Respiratory: No symptoms reported Gastrointestinal: No symptoms reported Genitourinary: No symptoms reported Female Genitourinary: No symptoms reported Musculoskeletal: See HPI, Joint pain - left hip pain Skin: No symptoms reported Hematologic/Lymphatic: No symptoms reported Neurological/Psychological: No symptoms reported -: Yes All other systems reviewed and negative Physical Exam - Vital signs Vitals: Temp Pulse Resp BP Pulse Ox 98.0 F 79 16 108/49 L 95 10/05/18 12:27 10/05/18 12:27 10/05/18 12:27 10/05/18 12:27 10/05/18 12:27 - Notes Notes: Physical Exam: General: Alert, appears well. HEENT: Normocephalic. Atraumatic. PERRL. Extraocular movements intact. Oropharynx clear. Dry mucous membranes. Neck: Supple. Non-tender. Respiratory: No respiratory distress. Rhonchi with forced cough. Cardiovascular: Regular rate and rhythm. Abdominal: Normal Inspection. Non-tender. No distension. Normal Bowel Sounds. Back: Non-tender. No deformity or step off. Extremities: Upper extremities: Normal inspection. Normal ROM. Lower extremities: Right leg is fully extended, flat on the bed. Left hip and knee are flexed. Mild tenderness with palpation of the left hip. Severe pain with external rotation of left leg. Pelvis is stable. Neurological: Normal cognition. AAOx4. Normal speech. Psychological: Normal affect. Normal Mood. Skin: Warm. Dry. Normal color. Course - Re-evaluation Re-evalutation: 10/05/18 15:06 Patient's hemoglobin 7.7, this is down 3 g from 14 months ago. Her BUN is 42, this is double what the BUN was 14 months ago, creatinine is up by approximately 50%, so I suspect that her anemia is actually worse than it initially appears due to her being dehydrated. The red cell indices show that this is an iron deficiency anemia. 10/05/18 16:32 Stool was heme negative. We will get orthostatics as her blood pressure was a little lower today than it was a year ago. - Vital Signs Vital signs: Temp Pulse Resp BP Pulse Ox 98.5 F 74 20 152/64 H 97 10/05/18 18:40 10/05/18 18:40 10/05/18 18:40 10/05/18 18:40 10/05/18 18:40 - Laboratory Result Diagrams: 10/05/18 13:30 10/05/18 13:30 Laboratory results interpreted by me: 10/05/18 10/05/18 10/05/18 13:30 13:30 13:30 WBC 17.2 H Hgb 7.7 L Hct 25.3 L MCV 68 L MCH 20.8 L MCHC 30.6 L RDW 17.5 H Seg Neuts % (Manual) 97 H Lymphocytes % (Manual) 2 L Monocytes % (Manual) 1 L Abs Neuts (Manual) 16.7 H Abs Lymphs (Manual) 0.3 L Sodium 136.8 L BUN 42 H Creatinine 1.66 H Est GFR ( Amer) 36 L Est GFR (Non-Af Amer) 30 L Iron < 10.1 L Urine Blood Ur Leukocyte Esterase Crossmatch 10/05/18 10/05/18 14:42 15:20 WBC Hgb Hct MCV MCH MCHC RDW Seg Neuts % (Manual) Lymphocytes % (Manual) Monocytes % (Manual) Abs Neuts (Manual) Abs Lymphs (Manual) Sodium BUN Creatinine Est GFR ( Amer) Est GFR (Non-Af Amer) Iron Urine Blood SMALL H Ur Leukocyte Esterase SMALL H Crossmatch See Detail - Diagnostic Test Radiology reviewed: Image reviewed, Reports reviewed - Left hip x-rays and pelvic x-rays do not show fractures. - EKG Interpretation by Dc EKG shows normal: Sinus rhythm, Buda, Intervals, QRS Complexes. abnormal: ST-T Waves - Line anterior lateral T abnormalities Rate: Normal - 74 Rhythm: NSR When compared to previous EKG there are: No significant change - Consults Dr. Holder Time consulted: 18:00 Consulted provider: will come to ER Critical Care Note - Critical Care Note Total time excluding time spent on procedures (mins): 35 Discharge - Discharge Clinical Impression: Left hip pain Iron deficiency anemia Qualifiers: Iron deficiency anemia type: unspecified iron deficiency Qualified Code(s): D50.9 - Iron deficiency anemia, unspecified Hypotension Qualifiers: Hypotension type: unspecified hypotension type Qualified Code(s): I95.9 - Hypotension, unspecified Fall Qualifiers: Encounter type: initial encounter Qualified Code(s): W19.XXXA - Unspecified fall, initial encounter Hard of hearing Qualifiers: Hearing loss type: unspecified Laterality: bilateral Qualified Code(s): H91.93 - Unspecified hearing loss, bilateral Leukocytosis Qualifiers: Leukocytosis type: unspecified Qualified Code(s): D72.829 - Elevated white blood cell count, unspecified Condition: Good Disposition: ADMITTED INPATIENT Admitting Provider: Glory (Hospitalist) Unit Admitted: Telemetry I personally performed the services described in the documentation, reviewed and edited the documentation which was dictated to the scribe in my presence, and it accurately records my words and actions.
[2018-10-05 14:04] LABS: ALANINE AMINOTRANSFERASE 11 U/L (9-52); ALBUMIN 3.8 g/dL (3.5-5.0); ALKALINE PHOSPHATASE 86 U/L (38-126); ANION GAP 10 (5-19); ASPARTATE AMINO TRANSFERASE 20 U/L (14-36); BILIRUBIN,DIRECT 0.4 mg/dL (0.0-0.4); BILIRUBIN,TOTAL 0.4 mg/dL (0.2-1.3); BLOOD UREA NITROGEN 42 mg/dL (7-20); CALCIUM 10.2 mg/dL (8.4-10.2); CARBON DIOXIDE 27 mmol/L (22-30); CHLORIDE 100 mmol/L (98-107); CREATINE KINASE 100 U/L (30-135); GLUCOSE 102 mg/dL (75-110); TOTAL PROTEIN 6.7 g/dL (6.3-8.2)
[2018-10-05 14:46] LABS: HEMATOCRIT 25.3 % (36.0-47.0); MEAN CORPUSCULAR HEMOGLOBIN 20.8 pg (27.0-33.4); MEAN CORPUSCULAR HGB CONC 30.6 g/dL (32.0-36.0); MEAN CORPUSCULAR VOLUME 68 fl (80-97); PLATELET COUNT 420 10^3/uL (150-450); RED BLOOD COUNT 3.72 10^6/uL (3.72-5.28); RED CELL DISTRIBUTION WIDTH 17.5 % (11.5-14.0); WHITE BLOOD COUNT 17.2 10^3/uL (4.0-10.5)
[2018-10-05 14:50] LABS: HEMOGLOBIN 7.7 g/dL (12.0-15.5)
--- NOTE | 2018-10-05 14:50 | RADIOLOGY REPORT (SQ) ---
EXAM DESCRIPTION: PELVIS W/OBLIQUES COMPLETED DATE/TIME: 10/05/2018 2:37 pm REASON FOR STUDY: Fall, right hip and groin pain COMPARISON: None. NUMBER OF VIEWS: Two views. TECHNIQUE: AP and frog-leg view of the right hip. LIMITATIONS: None. FINDINGS: MINERALIZATION: Osteopenia. RIGHT HIP: No fracture or dislocation. No worrisome bone lesions. OPPOSITE HIP: No fracture or dislocation. No worrisome bone lesions. SOFT TISSUES: No findings. OTHER: No other significant finding. IMPRESSION: NEGATIVE STUDY OF THE RIGHT HIP. NO RADIOGRAPHIC EVIDENCE OF ACUTE INJURY. COMMENT: Pelvic fractures are often occult on plain radiographs. If strong clinical suspicion for f racture, recommend CT or MR. TECHNICAL DOCUMENTATION: JOB ID: [id number] [employer]- All Rights Reserved Reading location - IP/workstation name: [email or web address]
[2018-10-05 14:52] LABS: ABSOLUTE LYMPHOCYTES# (MANUAL) 0.3 10^3/uL (0.5-4.7); ABSOLUTE MONOCYTES # (MANUAL) 0.2 10^3/uL (0.1-1.4); BASOPHILS % (MANUAL) 0 % (0-2); EOSINOPHILS % (MANUAL) 0 % (0-6); LYMPHOCYTES % (MANUAL) 2 % (13-45); MONOCYTES % (MANUAL) 1 % (3-13); SEGMENTED NEUTROPHILS % (MAN) 97 % (42-78); TOTAL CELLS COUNTED 100
[2018-10-05 14:53] LABS: ANISOCYTOSIS 1+; HYPOCHROMASIA 1+; OVALOCYTES SLIGHT; PLATELET COMMENT ADEQUATE; POIKILOCYTOSIS SLIGHT; POLYCHROMASIA SLIGHT; TOXIC GRANULATION 1+
[2018-10-05 15:05] LABS: APPEARANCE,URINE CLEAR; BILIRUBIN,URINE NEGATIVE (NEGATIVE); COLOR,URINE STRAW; GLUCOSE, URINE NEGATIVE (NEGATIVE); KETONES,URINE NEGATIVE (NEGATIVE); LEUKOCYTE ESTERASE,URINE SMALL (NEGATIVE); NITRITE,URINE NEGATIVE (NEGATIVE); PROTEIN,URINE NEGATIVE (NEGATIVE); UROBILINOGEN,URINE NEGATIVE mg/dL (<2.0)
[2018-10-05] MEDS ORDERED: NORMAL SALINE 1000 ML 1,000 ML IV ONE (15:06)
[2018-10-05] MEDS ORDERED: NORMAL SALINE 250 ML IV PRN (16:25)
[2018-10-05 16:34] LABS: ABSOLUTE RETICS # 0.039 10^6/uL (0.028-0.122); RETICULOCYTE COUNT (AUTO) 1.06 % (0.66-2.85)
[2018-10-05 18:34] LABS: FOLATE 8.39 ng/mL (>2.76)
[2018-10-05 18:40] LABS: IRON(TIBC) < 10.1 ug/dL (37-170)
--- NOTE | 2018-10-05 18:48 | PDOC H&P ---
History of Present Illness Admission Date/PCP: 10/05/18 18:22 MAURY CHANG History of Present Illness: YAEL FRANCISCO is a 78 year old female who resides at an assisted living facility in the area who was in her usual state of health when she was walking to the cafeteria and felt weak and her legs gave out on her and she fell. She says her hip is been aching her for about a week. She said prior to this she has not fallen or suffered any kind of trauma. Please note she is very hard of hearing any have to yell into her left ear for her to hear you. She was brought to the ER and fractures of the left hip and the pelvis show no evidence of fracture. She says is a little sore and it aches. Her hemoglobin was noted to be low with a low MCV. She normally has some chronic kidney disease with a creatinine of around 1.2, and her BUN and creatinine were elevated today. Apparently she takes Lasix and HCTZ at home for blood pressure. Looks like those were last filled on September 26 and the respectively. She is being admitted for some packed red blood cells, some IV fluids, checking of her iron levels, and physical therapy. She was also hypertensive whenever I saw her but this is probably because she was in pain at that time had not gotten any pain medication. Past Medical History Cardiac Medical History: Reports: Hypertension Pulmonary Medical History: Reports: Chronic Obstructive Pulmonary Disease (COPD) Endocrine Medical History: Reports: Hypothyroidism Psychiatric Medical History: Reports: Depression Past Surgical History Past Surgical History: Reports: Tonsillectomy Social History Lives with: Family Smoking Status: Former Smoker Frequency of Alcohol Use: Rare Hx Recreational Drug Use: No Drugs: None Hx Prescription Drug Abuse: No Family History Family History: Reviewed & Not Pertinent, Arthritis, COPD, Hypertension Parental Family History Reviewed: Yes - Arthritis, hypertension, COPD Children Family History Reviewed: Yes - Hypertension Sibling(s) Family History Reviewed.: Unknown Medication/Allergy Home Medications: Albuterol Sulfate [Proair Respiclick] 90 mcg IH Q4HP PRN 30 Days #1 aer.[email or web address] 06/28/17 Amlodipine Besylate [Norvasc 10 mg Tablet] 10 mg PO DAILY 20 Days #20 tablet 06/28/17 Docusate Sodium [Colace 100 mg Capsule] 100 mg PO BID capsule 06/28/17 Famotidine [Pepcid 20 mg Tablet] 20 mg PO QHS 5 Days #5 tablet 06/28/17 Lisinopril [Prinivil 10 mg Tablet] 40 mg PO QHS 20 Days #20 tablet 06/28/17 Nicotine [Nicoderm 21 mg/24 Hr Transderm Patch] 1 each TD DAILY patch.td24 06/28/17 Polyethylene Glycol 3350 [Miralax Powder 17 gm/Packet] 17 gm PO DAILY PRN powd.pack 06/28/17 Prednisone [Deltasone 20 mg Tablet] 20 mg PO DAILY 5 Days #5 tablet 06/28/17 Amoxicillin 1 tab PO TID #21 tab 08/14/17 Prednisone [Deltasone 20 mg Tablet] 3 tab PO DAILY 5 Days #15 tablet 08/14/17 Allergies/Adverse Reactions: No Known Allergies Allergy (Verified 10/05/18 12:28) Review of Systems All systems: reviewed and no additional remarkable complaints except as stated - It was difficult, but all systems were reviewed and were negative except as noted in the HPI Physical Exam Vital Signs: Temp Pulse Resp BP Pulse Ox 98.5 F 72 20 155/71 H 98 10/05/18 18:19 10/05/18 18:19 10/05/18 18:19 10/05/18 18:19 10/05/18 18:19 Intake & Output 10/04/18 10/05/18 10/06/18 06:59 06:59 06:59 Intake Total 0 Balance 0 Weight 35.3 kg General appearance: PRESENT: no acute distress, cooperative, disheveled, hard of hearing, thin Head exam: PRESENT: atraumatic, normocephalic Eye exam: PRESENT: conjunctiva pale, EOMI, PERRLA. ABSENT: conjunctival injection, nystagmus, scleral icterus Ear exam: PRESENT: normal external ear exam Mouth exam: PRESENT: dry mucosa, neck supple Teeth exam: PRESENT: poor dentation Throat exam: ABSENT: post pharyngeal erythema Neck exam: PRESENT: full ROM. ABSENT: carotid bruit, JVD, lymphadenopathy, meningismus, tenderness, thyromegaly Respiratory exam: PRESENT: clear to auscultation [place], symmetrical, unlabored. ABSENT: accessory muscle use, chest wall tenderness, crackles, prolonged expiratory phas, rhonchi, tachypnea, wheezes Cardiovascular exam: PRESENT: RRR, +S1, +S2 Pulses: PRESENT: normal carotid pulses Vascular exam: PRESENT: pallor GI/Abdominal exam: PRESENT: normal bowel sounds, soft. ABSENT: distended, guarding, rebound, tenderness Extremities exam: ABSENT: clubbing, pedal edema Musculoskeletal exam: PRESENT: normal inspection, tenderness - Left hip is tender but not deformed. ABSENT: deformity Neurological exam: PRESENT: alert, awake, oriented to person, oriented to place, oriented to situation, CN II-XII grossly intact. ABSENT: motor sensory deficit - Other than being very hard of hearing Psychiatric exam: PRESENT: appropriate affect, normal mood Skin exam: PRESENT: dry, pallor, warm Results Laboratory Results: 10/05/18 13:30 10/05/18 13:30 10/05/18 10/05/18 10/05/18 13:30 13:30 13:30 WBC 17.2 H RBC 3.72 Hgb 7.7 L Hct 25.3 L MCV 68 L MCH 20.8 L MCHC 30.6 L RDW 17.5 H Plt Count 420 Seg Neutrophils % Not Reportable Lymphocytes % Not Reportable Monocytes % Not Reportable Eosinophils % Not Reportable Basophils % Not Reportable Absolute Neutrophils Not Reportable Absolute Lymphocytes Not Reportable Absolute Monocytes Not Reportable Absolute Eosinophils Not Reportable Absolute Basophils Not Reportable Retic Count (auto) 1.06 Absolute Retic 0.039 Sodium 136.8 L Potassium 5.0 Chloride 100 Carbon Dioxide 27 Anion Gap 10 BUN 42 H Creatinine 1.66 H Est GFR ( Amer) 36 L Est GFR (Non-Af Amer) 30 L Glucose 102 Calcium 10.2 Total Bilirubin 0.4 AST 20 ALT 11 Alkaline Phosphatase 86 Total Protein 6.7 Albumin 3.8 Urine Color Urine Appearance Urine pH Ur Specific [place] Urine Protein Urine Glucose (UA) Urine Ketones Urine Blood Urine Nitrite Ur Leukocyte Esterase Urine WBC (Auto) Urine RBC (Auto) Blood Type Antibody Screen 10/05/18 10/05/18 14:42 15:20 WBC RBC Hgb Hct MCV MCH MCHC RDW Plt Count Seg Neutrophils % Lymphocytes % Monocytes % Eosinophils % Basophils % Absolute Neutrophils Absolute Lymphocytes Absolute Monocytes Absolute Eosinophils Absolute Basophils Retic Count (auto) Absolute Retic Sodium Potassium Chloride Carbon Dioxide Anion Gap BUN Creatinine Est GFR ( Amer) Est GFR (Non-Af Amer) Glucose Calcium Total Bilirubin AST ALT Alkaline Phosphatase Total Protein Albumin Urine Color STRAW Urine Appearance CLEAR Urine pH 5.0 Ur Specific [place] 1.010 Urine Protein NEGATIVE Urine Glucose (UA) NEGATIVE Urine Ketones NEGATIVE Urine Blood SMALL H Urine Nitrite NEGATIVE Ur Leukocyte Esterase SMALL H Urine WBC (Auto) 2 Urine RBC (Auto) 2 Blood Type A POSITIVE Antibody Screen NEGATIVE 10/05/18 10/05/18 13:30 13:30 Creatine Kinase 100 Troponin I < 0.012 Impressions: Hip X-Ray 10/05/18 12:35 IMPRESSION: Mild bilateral degenerative changes. No acute fracture or dislocation. Pelvis X-Ray 10/05/18 13:11 IMPRESSION: NEGATIVE STUDY OF THE RIGHT HIP. NO RADIOGRAPHIC EVIDENCE OF ACUTE INJURY. Assessment and Plan - Diagnosis (1) [id number] kidney injury Qualifiers: Acute renal failure type: unspecified Chronic kidney disease stage: stage 3 (moderate) Qualified Code(s): N17.9 - Acute kidney failure, unspecified; N18.3 - Chronic kidney disease, stage 3 (moderate) Is this a current diagnosis for this admission?: Yes Plan: We are going to hold her Lasix and her HCTZ. We will put her on some gentle fluids. (2) Iron deficiency anemia Qualifiers: Iron deficiency anemia type: unspecified iron deficiency Qualified Code(s): D50.9 - Iron deficiency anemia, unspecified Is this a current diagnosis for this admission?: Yes Plan: Suspected because of a MCV of 68. We have iron studies pending. She will probably need an iron supplement. (3) COPD (chronic obstructive pulmonary disease) Qualifiers: COPD type: emphysema Emphysema type: centrilobular Qualified Code(s): J43.2 - Centrilobular emphysema Is this a current diagnosis for this admission?: Yes Plan: Not acutely exacerbated. On chronic prednisone. (4) Fall Qualifiers: Encounter type: initial encounter Qualified Code(s): W19.XXXA - Unspecified fall, initial encounter Is this a current diagnosis for this admission?: Yes Plan: Fortunately no fracture detected. If persistent pain, she may need a CT. We will get physical therapy to see her tomorrow. (5) Hard of hearing Qualifiers: Hearing loss type: presbycusis Laterality: bilateral Qualified Code(s): H91.13 - Presbycusis, bilateral Is this a current diagnosis for this admission?: Yes Plan: The left ear is the better of the 2 so anyone talking to her should go to her left side. - Time Time Spent with patient: 35 or more minutes - Inpatient Certification Based on my medical assessment, after consideration of the patient's comorbidities, presenting symptoms, or acuity I expect that the services needed warrant INPATIENT care.: Yes I certify that my determination is in accordance with my understanding of Medicare's requirements for reasonable and necessary INPATIENT services [42 CFR 412.3e].: Yes Medical Necessity: Need For IV Fluids, Need For Continuous Telemetry Monitoring
--- NOTE | 2018-10-05 20:09 | RADIOLOGY REPORT (SQ) ---
XR CHEST 1 VIEW EXAM DATE: 10/05/2018 6:08 PM CDT HISTORY: Fall, anemia, leukocytosis. COMPARISON: None. FINDINGS: The heart size is mildly enlarged with mild pulmonary vascular congestion. No consolidation, pleural effusion, or pneumothorax is seen. There are multiple old healed left-sided rib fractures. IMPRESSION: Mild pulmonary edema without consolidation or pleural effusion.
[2018-10-05] MEDS: HEPARIN SOD (PORCINE) 5,000 UNIT/ML 1 ML VIAL SUBCUT SCH (21:20)
[2018-10-06 05:35] LABS: HEMATOCRIT 29.1 % (36.0-47.0); HEMOGLOBIN 9.1 g/dL (12.0-15.5); MEAN CORPUSCULAR HEMOGLOBIN 22.4 pg (27.0-33.4); MEAN CORPUSCULAR HGB CONC 31.2 g/dL (32.0-36.0); PLATELET COUNT 343 10^3/uL (150-450); RED BLOOD COUNT 4.04 10^6/uL (3.72-5.28); RED CELL DISTRIBUTION WIDTH 20.3 % (11.5-14.0); WHITE BLOOD COUNT 14.1 10^3/uL (4.0-10.5)
[2018-10-06 05:45] LABS: ANION GAP 13 (5-19); BLOOD UREA NITROGEN 36 mg/dL (7-20); CALCIUM 10.2 mg/dL (8.4-10.2); CARBON DIOXIDE 22 mmol/L (22-30); CHLORIDE 102 mmol/L (98-107); GLUCOSE 109 mg/dL (75-110); POTASSIUM 4.7 mmol/L (3.6-5.0)
[2018-10-06 05:52] LABS: MEAN CORPUSCULAR VOLUME 72 fl (80-97)
[2018-10-06] MEDS: HEPARIN SOD (PORCINE) 5,000 UNIT/ML 1 ML VIAL SUBCUT SCH ×3 (06:03→22:46)
[2018-10-06] MEDS: NORMAL SALINE 1000 ML 1,000 ML IV PRN ×2 (06:08→23:07)
--- NOTE | 2018-10-06 09:34 | EKG REPORT ---
SEVERITY:- BORDERLINE ECG - SINUS OR ECTOPIC ATRIAL RHYTHM BORDERLINE T ABNORMALITIES, ANT-LAT LEADS : Confirmed by: Jennifer Vega MD 05-Oct-2018 21:26:34
[2018-10-06] MEDS ORDERED: (PENDING PHARMACY ID) (Fluticasone/Salmeterol 1 PUFF) IH SCH (10:00)
[2018-10-06] MEDS: ACETAMINOPHEN 325 MG TABLET PO PRN ×3 (10:23→23:06)
[2018-10-06] MEDS: LORAZEPAM 0.5 MG TABLET PO SCH ×2 (10:23→22:46)
[2018-10-06] MEDS: PREDNISONE 10 MG TABLET PO SCH (10:23)
[2018-10-06] MEDS: FLUTICASONE NASAL SPRAY 50 MCG/SPRY 120 SPRAY/16 GM NASL SCH ×2 (10:24→18:15)
[2018-10-06] MEDS: OXYBUTYNIN CHLORIDE 5 MG TABLET PO SCH (10:25)
[2018-10-06] MEDS ORDERED: IRON SUCROSE COMPLEX INJ/PF 100 MG/5 ML SDV IV ONE (11:00)
[2018-10-06] MEDS: NICOTINE 21 MG/24 HR PATCH.TD24 TD SCH (11:21)
[2018-10-06] MEDS: FLUTICASONE/VILANTEROL 200-25 MCG/DOSE IH SCH (11:22)
[2018-10-06] MEDS ORDERED: ALBUTEROL SULFATE 0.083% NEB 2.5 MG/3 ML AMPUL NEB ONE (12:22)
[2018-10-06] MEDS: ALBUTEROL SULFATE 0.083% NEB 2.5 MG/3 ML AMPUL NEB SCH ×2 (12:24→16:22)
--- NOTE | 2018-10-06 16:15 | PDOC PROGRESS REPORT ---
Subjective Progress Note for:: 10/06/18 Subjective:: She is seen resting in bed. She is extremely hard of hearing. Most of her communication is done by written board. She denies any chest pain, shortness of breath or dyspnea at rest. She denies any nausea, vomiting or abdominal pain. She denies any fevers or chills. She is asking for nicotine patch. She has some pain in her right hip from her fall. She states her right arm hurts some as well. She states she has some back pain as well. She would like some Tylenol for that. She denies any other complaints at the present time. She has had no stools. Reason For Visit: IRON DEFICIENCY ANEMIA,ACUTE ON CHRONIC KIDNEY Physical Exam Vital Signs: Temp Pulse Resp BP Pulse Ox 98.7 F 84 16 170/68 H 97 10/06/18 08:00 10/06/18 08:00 10/06/18 08:00 10/06/18 08:00 10/06/18 08:00 Intake & Output 10/05/18 10/06/18 10/07/18 06:59 06:59 06:59 Intake Total 1400 Output Total 300 Balance 1100 Weight 43.5 kg General appearance: PRESENT: no acute distress, thin, well-developed Head exam: PRESENT: atraumatic, normocephalic Eye exam: PRESENT: conjunctiva pink, EOMI, PERRLA. ABSENT: scleral icterus Ear exam: PRESENT: normal external ear exam Mouth exam: PRESENT: moist, tongue midline Neck exam: ABSENT: carotid bruit, JVD, lymphadenopathy, thyromegaly Respiratory exam: PRESENT: clear to auscultation [place]. ABSENT: rales, rhonchi, wheezes Cardiovascular exam: PRESENT: RRR. ABSENT: diastolic murmur, rubs, systolic murmur Pulses: PRESENT: normal dorsalis pedis pul Vascular exam: PRESENT: normal capillary refill GI/Abdominal exam: PRESENT: normal bowel sounds, soft. ABSENT: distended, guarding, mass, organolmegaly, rebound, tenderness Rectal exam: PRESENT: deferred Extremities exam: PRESENT: tenderness - Left forearm, other - Left hip Musculoskeletal exam: PRESENT: ambulatory Neurological exam: PRESENT: alert, awake, oriented to person, oriented to place, oriented to time, oriented to situation, CN II-XII grossly intact, other - Extremely hard of hearing. ABSENT: motor sensory deficit Psychiatric exam: PRESENT: appropriate affect, normal mood. ABSENT: homicidal ideation, suicidal ideation Skin exam: PRESENT: dry, intact, warm. ABSENT: cyanosis, rash Results Laboratory Results: 10/06/18 04:55 10/06/18 04:55 10/05/18 10/05/18 10/05/18 13:30 13:30 13:30 WBC 17.2 H RBC 3.72 Hgb 7.7 L Hct 25.3 L MCV 68 L MCH 20.8 L MCHC 30.6 L RDW 17.5 H Plt Count 420 Seg Neutrophils % Not Reportable Lymphocytes % Not Reportable Monocytes % Not Reportable Eosinophils % Not Reportable Basophils % Not Reportable Absolute Neutrophils Not Reportable Absolute Lymphocytes Not Reportable Absolute Monocytes Not Reportable Absolute Eosinophils Not Reportable Absolute Basophils Not Reportable Retic Count (auto) 1.06 Absolute Retic 0.039 Sodium 136.8 L Potassium 5.0 Chloride 100 Carbon Dioxide 27 Anion Gap 10 BUN 42 H Creatinine 1.66 H Est GFR ( Amer) 36 L Est GFR (Non-Af Amer) 30 L Glucose 102 Calcium 10.2 Iron TIBC % Saturation Ferritin Total Bilirubin 0.4 AST 20 ALT 11 Alkaline Phosphatase 86 Total Protein 6.7 Albumin 3.8 Vitamin B12 Folate Urine Color Urine Appearance Urine pH Ur Specific [place] Urine Protein Urine Glucose (UA) Urine Ketones Urine Blood Urine Nitrite Ur Leukocyte Esterase Urine WBC (Auto) Urine RBC (Auto) Blood Type Antibody Screen 10/05/18 10/05/18 10/05/18 13:30 14:42 15:20 WBC RBC Hgb Hct MCV MCH MCHC RDW Plt Count Seg Neutrophils % Lymphocytes % Monocytes % Eosinophils % Basophils % Absolute Neutrophils Absolute Lymphocytes Absolute Monocytes Absolute Eosinophils Absolute Basophils Retic Count (auto) Absolute Retic Sodium Potassium Chloride Carbon Dioxide Anion Gap BUN Creatinine Est GFR ( Amer) Est GFR (Non-Af Amer) Glucose Calcium Iron < 10.1 L TIBC 283 % Saturation UNABLE TO CALCULATE Ferritin 78.80 Total Bilirubin AST ALT Alkaline Phosphatase Total Protein Albumin Vitamin B12 288.0 Folate 8.39 Urine Color STRAW Urine Appearance CLEAR Urine pH 5.0 Ur Specific [place] 1.010 Urine Protein NEGATIVE Urine Glucose (UA) NEGATIVE Urine Ketones NEGATIVE Urine Blood SMALL H Urine Nitrite NEGATIVE Ur Leukocyte Esterase SMALL H Urine WBC (Auto) 2 Urine RBC (Auto) 2 Blood Type A POSITIVE Antibody Screen NEGATIVE 10/06/18 10/06/18 04:55 04:55 WBC 14.1 H RBC 4.04 Hgb 9.1 L Hct 29.1 L MCV 72 L D MCH 22.4 L MCHC 31.2 L RDW 20.3 H Plt Count 343 Seg Neutrophils % Lymphocytes % Monocytes % Eosinophils % Basophils % Absolute Neutrophils Absolute Lymphocytes Absolute Monocytes Absolute Eosinophils Absolute Basophils Retic Count (auto) Absolute Retic Sodium 136.6 L Potassium 4.7 Chloride 102 Carbon Dioxide 22 Anion Gap 13 BUN 36 H Creatinine 1.45 H Est GFR ( Amer) 42 L Est GFR (Non-Af Amer) 35 L Glucose 109 Calcium 10.2 Iron TIBC % Saturation Ferritin Total Bilirubin AST ALT Alkaline Phosphatase Total Protein Albumin Vitamin B12 Folate Urine Color Urine Appearance Urine pH Ur Specific [place] Urine Protein Urine Glucose (UA) Urine Ketones Urine Blood Urine Nitrite Ur Leukocyte Esterase Urine WBC (Auto) Urine RBC (Auto) Blood Type Antibody Screen 10/05/18 10/05/18 13:30 13:30 Creatine Kinase 100 Troponin I < 0.012 Impressions: Hip X-Ray 10/05/18 12:35 IMPRESSION: Mild bilateral degenerative changes. No acute fracture or dislocation. Pelvis X-Ray 10/05/18 13:11 IMPRESSION: NEGATIVE STUDY OF THE RIGHT HIP. NO RADIOGRAPHIC EVIDENCE OF ACUTE INJURY. Chest X-Ray 10/05/18 18:08 IMPRESSION: Mild pulmonary edema without consolidation or pleural effusion. Assessment and Plan - Diagnosis (1) Spihq-vh-[id number] kidney injury Qualifiers: Acute renal failure type: unspecified Chronic kidney disease stage: stage 3 (moderate) Qualified Code(s): N17.9 - Acute kidney failure, unspecified; N18.3 - Chronic kidney disease, stage 3 (moderate) Is this a current diagnosis for this admission?: Yes Plan: We are going to hold her Lasix and her HCTZ. We will put her on some gentle fluids. BUN and creatinine are improved today. (2) Iron deficiency anemia Qualifiers: Iron deficiency anemia type: unspecified iron deficiency Qualified Code(s): D50.9 - Iron deficiency anemia, unspecified Is this a current diagnosis for this admission?: Yes Plan: Suspected because of a MCV of 68. Iron levels are less than 10. We will give her one infusion of IV iron today. Start her on oral supplements tomorrow she will probably need an iron supplement. She has no stools yet. We will guaiac any that she has. (3) COPD (chronic obstructive pulmonary disease) Qualifiers: COPD type: emphysema Emphysema type: centrilobular Qualified Code(s): J43.2 - Centrilobular emphysema Is this a current diagnosis for this admission?: Yes (4) Fall Qualifiers: Encounter type: initial encounter Qualified Code(s): W19.XXXA - Unspecified fall, initial encounter Is this a current diagnosis for this admission?: Yes Plan: Fortunately no fracture detected. We will get physical therapy to see her tomorrow. (5) Hard of hearing Qualifiers: Hearing loss type: presbycusis Laterality: bilateral Qualified Code(s): H91.13 - Presbycusis, bilateral Is this a current diagnosis for this admission?: Yes Plan: The left ear is the better of the 2 so anyone talking to her should go to her left side. (6) Left hip pain Is this a current diagnosis for this admission?: Yes Plan: She is presently getting Tylenol and Ultram as needed. (7) Leukocytosis Qualifiers: Leukocytosis type: unspecified Qualified Code(s): D72.829 - Elevated white blood cell count, unspecified Is this a current diagnosis for this admission?: Yes Plan: Unclear etiology is improved with fluids overnight. (8) Hypertension Qualifiers: Hypertension type: essential hypertension Qualified Code(s): I10 - Essential (primary) hypertension Is this a current diagnosis for this admission?: Yes Plan: We will continue home medications she presently is now normotensive. - Time Time Spent with patient: 25-34 minutes Total Critical Time (Minutes): 20 Smoking Cessation Education: 3 to 10 minutes Medications reviewed and adjusted accordingly: Yes Anticipated discharge: Other - Assisted living Within: within 48 hours - Inpatient Certification Based on my medical assessment, after consideration of the patient's comorbidities, presenting symptoms, or acuity I expect that the services needed warrant INPATIENT care.: Yes I certify that my determination is in accordance with my understanding of Medicare's requirements for reasonable and necessary INPATIENT services [42 CFR 412.3e].: Yes Medical Necessity: Need For IV Fluids
[2018-10-06] MEDS: ALBUTEROL SULFATE HFA (90 MCG/PUFF) 200 PUFF/8.5 GM MDI IH PRN (18:16)
[2018-10-07] MEDS: ALBUTEROL SULFATE 0.083% NEB 2.5 MG/3 ML AMPUL NEB SCH ×4 (00:14→23:57)
[2018-10-07] MEDS: HEPARIN SOD (PORCINE) 5,000 UNIT/ML 1 ML VIAL SUBCUT SCH ×3 (05:25→21:19)
[2018-10-07 06:19] LABS: HEMATOCRIT 26.5 % (36.0-47.0); HEMOGLOBIN 8.4 g/dL (12.0-15.5); MEAN CORPUSCULAR HEMOGLOBIN 22.9 pg (27.0-33.4); MEAN CORPUSCULAR HGB CONC 31.7 g/dL (32.0-36.0); MEAN CORPUSCULAR VOLUME 72 fl (80-97); PLATELET COUNT 308 10^3/uL (150-450); RED BLOOD COUNT 3.66 10^6/uL (3.72-5.28); RED CELL DISTRIBUTION WIDTH 20.4 % (11.5-14.0); WHITE BLOOD COUNT 9.9 10^3/uL (4.0-10.5)
[2018-10-07 06:38] LABS: ANION GAP 8 (5-19); BLOOD UREA NITROGEN 28 mg/dL (7-20); CALCIUM 9.6 mg/dL (8.4-10.2); CARBON DIOXIDE 23 mmol/L (22-30); CHLORIDE 108 mmol/L (98-107); GLUCOSE 72 mg/dL (75-110); POTASSIUM 4.7 mmol/L (3.6-5.0)
[2018-10-07] MEDS: PREDNISONE 10 MG TABLET PO SCH (09:25)
[2018-10-07] MEDS: FLUTICASONE NASAL SPRAY 50 MCG/SPRY 120 SPRAY/16 GM NASL SCH ×2 (09:25→18:36)
[2018-10-07] MEDS: FERROUS SULFATE 325 MG TABLET PO SCH ×2 (09:25→18:35)
[2018-10-07] MEDS: LORAZEPAM 0.5 MG TABLET PO SCH ×2 (09:25→21:19)
[2018-10-07] MEDS: OXYBUTYNIN CHLORIDE 5 MG TABLET PO SCH (09:26)
[2018-10-07] MEDS: NICOTINE 21 MG/24 HR PATCH.TD24 TD SCH (09:26)
[2018-10-07] MEDS: FLUTICASONE/VILANTEROL 200-25 MCG/DOSE IH SCH (09:29)
[2018-10-07] MEDS: ACETAMINOPHEN 325 MG TABLET PO PRN ×2 (09:32→18:40)
[2018-10-07] MEDS: NORMAL SALINE 1000 ML 1,000 ML IV PRN (11:49)
[2018-10-07] MEDS: HYDROCODONE/ACETAMINOPHEN 5-325 MG TABLET PO PRN (11:52)
--- NOTE | 2018-10-07 11:59 | PDOC PROGRESS REPORT ---
Subjective Progress Note for:: 10/07/18 Subjective:: She is seen resting in bed. She is extremely hard of hearing. Most of her communication is done by written board. She denies any chest pain, shortness of breath or dyspnea at rest. She denies any nausea, vomiting or abdominal pain. She denies any fevers or chills. She is asking for nicotine patch. She has some pain in her left t hip from her fall. She states her left arm hurts some as well. She states she has some back pain as well. Tells me she could not walk with physical therapy. According to the therapy notes she did walk yesterday diffusely in the room. She refused today. She would like some Tylenol for that. She denies any other complaints at the present time. She has had no stools. Reason For Visit: IRON DEFICIENCY ANEMIA,ACUTE ON CHRONIC KIDNEY Physical Exam Vital Signs: Temp Pulse Resp BP Pulse Ox 98.8 F 93 16 178/75 H 94 10/07/18 07:24 10/07/18 08:31 10/07/18 08:31 10/07/18 07:24 10/07/18 08:31 Intake & Output 10/06/18 10/07/18 10/08/18 06:59 06:59 06:59 Intake Total 1400 2300 953 Output Total 300 300 Balance 1100 2000 953 Weight 43.5 kg 43.6 kg General appearance: PRESENT: no acute distress, thin, well-developed, other - Chronically ill Head exam: PRESENT: atraumatic Eye exam: PRESENT: conjunctiva pink, EOMI, PERRLA. ABSENT: scleral icterus Ear exam: PRESENT: normal external ear exam Mouth exam: PRESENT: moist, tongue midline Neck exam: ABSENT: carotid bruit, JVD, lymphadenopathy, thyromegaly Respiratory exam: PRESENT: clear to auscultation suman. ABSENT: rales, rhonchi, wheezes Cardiovascular exam: PRESENT: RRR. ABSENT: diastolic murmur, rubs, systolic murmur Pulses: PRESENT: normal dorsalis pedis pul Vascular exam: PRESENT: normal capillary refill GI/Abdominal exam: PRESENT: normal bowel sounds, soft. ABSENT: distended, guarding, mass, organolmegaly, rebound, tenderness Rectal exam: PRESENT: deferred Extremities exam: PRESENT: full ROM, tenderness - Left hip Musculoskeletal exam: PRESENT: ambulatory, full ROM, normal inspection - Left hip, tenderness Neurological exam: PRESENT: alert, awake, oriented to person, oriented to place, oriented to time, oriented to situation, CN II-XII grossly intact, other - Extremely hard of hearing.. ABSENT: motor sensory deficit Psychiatric exam: PRESENT: appropriate affect, normal mood. ABSENT: homicidal ideation, suicidal ideation Skin exam: PRESENT: dry, intact, warm. ABSENT: cyanosis, rash Results Laboratory Results: 10/07/18 04:43 10/07/18 04:43 10/07/18 10/07/18 04:43 04:43 WBC 9.9 RBC 3.66 L Hgb 8.4 L Hct 26.5 L MCV 72 L MCH 22.9 L MCHC 31.7 L RDW 20.4 H Plt Count 308 Sodium 138.9 Potassium 4.7 Chloride 108 H Carbon Dioxide 23 Anion Gap 8 BUN 28 H Creatinine 1.35 H Est GFR ( Amer) 46 L Est GFR (Non-Af Amer) 38 L Glucose 72 L Calcium 9.6 10/05/18 10/05/18 13:30 13:30 Creatine Kinase 100 Troponin I < 0.012 Impressions: Hip X-Ray 10/05/18 12:35 IMPRESSION: Mild bilateral degenerative changes. No acute fracture or dislocation. Pelvis X-Ray 10/05/18 13:11 IMPRESSION: NEGATIVE STUDY OF THE RIGHT HIP. NO RADIOGRAPHIC EVIDENCE OF ACUTE INJURY. Chest X-Ray 10/05/18 18:08 IMPRESSION: Mild pulmonary edema without consolidation or pleural effusion. Assessment and Plan - Diagnosis (1) Dljjs-zl-wonihek kidney injury Qualifiers: Acute renal failure type: unspecified Chronic kidney disease stage: stage 3 (moderate) Qualified Code(s): N17.9 - Acute kidney failure, unspecified; N18.3 - Chronic kidney disease, stage 3 (moderate) Is this a current diagnosis for this admission?: Yes Plan: Resolved with IV hydration and blood. We will continue to avoid nephrotoxic medications and dosages. (2) Iron deficiency anemia Qualifiers: Iron deficiency anemia type: unspecified iron deficiency Qualified Code(s): D50.9 - Iron deficiency anemia, unspecified Is this a current diagnosis for this admission?: Yes Plan: She was transfused 2 units of packed red blood cells and given iron infusion. She is found to have iron deficiency anemia with iron level less than 10. She was started on oral iron therapy as well. We will continue to monitor. Stool was guaiac negative. (3) COPD (chronic obstructive pulmonary disease) Qualifiers: COPD type: emphysema Emphysema type: centrilobular Qualified Code(s): J43.2 - Centrilobular emphysema Is this a current diagnosis for this admission?: Yes Plan: Not acutely exacerbated. On chronic prednisone. (4) Fall Qualifiers: Encounter type: initial encounter Qualified Code(s): W19.XXXA - Unspecified fall, initial encounter Is this a current diagnosis for this admission?: Yes Plan: Fortunately no fracture detected. Still complaining of severe pain in the left hip. Will CT hip to make sure there is no fracture (5) Hard of hearing Qualifiers: Hearing loss type: presbycusis Laterality: bilateral Qualified Code(s): H91.13 - Presbycusis, bilateral Is this a current diagnosis for this admission?: Yes Plan: The left ear is the better of the 2 so anyone talking to her should go to her left side. (6) Left hip pain Is this a current diagnosis for this admission?: Yes Plan: Will CT hip. She is still having complaints of severe pain in the left hip She is presently getting Tylenol and Ultram as needed. (7) Leukocytosis Qualifiers: Leukocytosis type: unspecified Qualified Code(s): D72.829 - Elevated white blood cell count, unspecified Is this a current diagnosis for this admission?: Yes Plan: Unclear etiology is improved with fluids overnight. (8) Hypertension Qualifiers: Hypertension type: essential hypertension Qualified Code(s): I10 - Essenti al (primary) hypertension Is this a current diagnosis for this admission?: Yes Plan: We will continue home medications she presently is now normotensive. - Time Time Spent with patient: 25-34 minutes Total Critical Time (Minutes): 20 Smoking Cessation Education: 3 to 10 minutes Medications reviewed and adjusted accordingly: Yes Within: within 72 hours - Inpatient Certification Based on my medical assessment, after consideration of the patient's comorbidities, presenting symptoms, or acuity I expect that the services needed warrant INPATIENT care.: Yes I certify that my determination is in accordance with my understanding of Medicare's requirements for reasonable and necessary INPATIENT services [42 CFR 412.3e].: Yes Medical Necessity: Need for Pain Control
--- NOTE | 2018-10-07 16:10 | RADIOLOGY REPORT (SQ) ---
EXAM DESCRIPTION: CT PELVIS WITHOUT COMPLETED DATE/TIME: 10/07/2018 3:34 pm REASON FOR STUDY: Severe left hip and pelvis pain after a fall COMPARISON: Radiographs of the pelvis and left hip 10/05/2018 TECHNIQUE: CT scan of the pelvis performed without intravenous or oral contrast. Images reviewed wi th soft tissue and bone windows. Reconstructed coronal and sagittal MPR images reviewed. All images stored on PACS. All CT scanners at this facility use dose modulation, iterative reconstruction, and/or weight based d osing when appropriate to reduce radiation dose to as low as reasonably achievable (ALARA). [facility]: Dose Right [facility]: CareDose [facility]: Dose Right [facility]: Teradose 4D [facility]: [employer] RADIATION DOSE: CT Rad equipment meets quality standard of care and radiation dose reduction techniq ues were employed. CTDIvol: 10.3 mGy. DLP: 312 mGy-cm. mGy. LIMITATIONS: None. FINDINGS: PELVIC BONES: Comminuted fracture of the left superior pubic ramus. Large lytic lesion in volving the sacrum with adjacent involvement of the right ilium. VISUALIZED SPINE: Bone destruction in the upper sacrum. HIP(S): No acute fracture or dislocation. No worrisome bone lesions. PELVIC SOFT TISSUES: No significant findings. EXTRAPELVIC SOFT TISSUES: No significant findings. OTHER: No other significant finding. IMPRESSION: 1. Fracture of the left superior pubic ramus. 2. Extensive bone destruction involving the sacrum and the adjacent right ilium. Is there a known n eoplasm? Consider biopsy. TECHNICAL DOCUMENTATION: JOB ID: [id number] Quality ID # [id number]: Final reports with documentation of one or more dose reduction techniques (e.g., Au tomated exposure control, adjustment of the mA and/or kV according to patient size, use of iterative reconstruction technique) 2010 [employer]- All Rights Reserved Reading location - IP/workstation name: [email or web address]
[2018-10-07] MEDS: ALBUTEROL SULFATE HFA (90 MCG/PUFF) 200 PUFF/8.5 GM MDI IH PRN (18:38)
[2018-10-08] MEDS: NORMAL SALINE 1000 ML 1,000 ML IV PRN (05:14)
[2018-10-08] MEDS: HEPARIN SOD (PORCINE) 5,000 UNIT/ML 1 ML VIAL SUBCUT SCH ×3 (05:15→21:19)
[2018-10-08 06:07] LABS: HEMATOCRIT 26.2 % (36.0-47.0); HEMOGLOBIN 8.5 g/dL (12.0-15.5); MEAN CORPUSCULAR HEMOGLOBIN 23.2 pg (27.0-33.4); MEAN CORPUSCULAR HGB CONC 32.5 g/dL (32.0-36.0); MEAN CORPUSCULAR VOLUME 72 fl (80-97); PLATELET COUNT 309 10^3/uL (150-450); RED BLOOD COUNT 3.66 10^6/uL (3.72-5.28); RED CELL DISTRIBUTION WIDTH 20.6 % (11.5-14.0); WHITE BLOOD COUNT 10.6 10^3/uL (4.0-10.5)
[2018-10-08 06:26] LABS: ANION GAP 8 (5-19); BLOOD UREA NITROGEN 19 mg/dL (7-20); CALCIUM 9.6 mg/dL (8.4-10.2); CARBON DIOXIDE 21 mmol/L (22-30); CHLORIDE 111 mmol/L (98-107); GLUCOSE 75 mg/dL (75-110); POTASSIUM 4.4 mmol/L (3.6-5.0)
[2018-10-08] MEDS: HYDROCODONE/ACETAMINOPHEN 5-325 MG TABLET PO PRN ×2 (07:56→17:37)
[2018-10-08] MEDS: ALBUTEROL SULFATE 0.083% NEB 2.5 MG/3 ML AMPUL NEB SCH ×2 (08:08→16:14)
[2018-10-08] MEDS: OXYBUTYNIN CHLORIDE 5 MG TABLET PO SCH (09:45)
[2018-10-08] MEDS: LORAZEPAM 0.5 MG TABLET PO SCH ×2 (09:45→21:20)
[2018-10-08] MEDS: FLUTICASONE/VILANTEROL 200-25 MCG/DOSE IH SCH (09:45)
[2018-10-08] MEDS: FERROUS SULFATE 325 MG TABLET PO SCH ×2 (09:45→17:38)
[2018-10-08] MEDS: PREDNISONE 10 MG TABLET PO SCH (09:45)
[2018-10-08] MEDS: FLUTICASONE NASAL SPRAY 50 MCG/SPRY 120 SPRAY/16 GM NASL SCH ×2 (09:45→17:38)
[2018-10-08] MEDS: NICOTINE 21 MG/24 HR PATCH.TD24 TD SCH (09:46)
--- NOTE | 2018-10-08 14:50 | PDOC PROGRESS REPORT ---
Subjective Progress Note for:: 10/08/18 Subjective:: She is seen resting in bed. She is extremely hard of hearing. Most of her communication is done by written board. She denies any chest pain, shortness of breath or dyspnea at rest. She denies any nausea, vomiting or abdominal pain. She denies any fevers or chills. She is asking for nicotine patch. She has some pain in her left hip from her fall. She states she did take the pain pill and it did help her pain. CT did show she has a pelvic fracture and a lytic lesion of her sacrum. She states she has some back pain as well. She denies any other complaints at the present time. Reason For Visit: IRON DEFICIENCY ANEMIA,ACUTE ON CHRONIC KIDNEY Physical Exam Vital Signs: Temp Pulse Resp BP Pulse Ox 98.3 F 95 16 187/82 H 91 L 10/08/18 07:29 10/08/18 08:08 10/08/18 08:08 10/08/18 07:29 10/08/18 08:08 Intake & Output 10/07/18 10/08/18 10/09/18 06:59 06:59 06:59 Intake Total 2300 3706 576 Output Total 300 80 Balance 2000 3626 576 Weight 43.6 kg 44.8 kg General appearance: PRESENT: no acute distress, thin, well-developed Head exam: PRESENT: atraumatic, normocephalic Eye exam: PRESENT: conjunctiva pink, EOMI, PERRLA. ABSENT: scleral icterus Ear exam: PRESENT: normal external ear exam Mouth exam: PRESENT: moist, tongue midline Neck exam: ABSENT: carotid bruit, JVD, lymphadenopathy, thyromegaly Respiratory exam: PRESENT: clear to auscultation suman. ABSENT: rales, rhonchi, wheezes Cardiovascular exam: PRESENT: RRR. ABSENT: diastolic murmur, rubs, systolic murmur Pulses: PRESENT: normal dorsalis pedis pul Vascular exam: PRESENT: normal capillary refill Rectal exam: PRESENT: deferred Extremities exam: PRESENT: full ROM. ABSENT: calf tenderness, clubbing, pedal edema Neurological exam: PRESENT: alert, awake, oriented to person, oriented to place, oriented to time, oriented to situation, CN II-XII grossly intact, other - Extremely hard of hearing. ABSENT: motor sensory deficit Psychiatric exam: PRESENT: appropriate affect, normal mood. ABSENT: homicidal ideation, suicidal ideation Skin exam: PRESENT: dry, intact, warm. ABSENT: cyanosis, rash Results Laboratory Results: 10/08/18 05:19 10/08/18 05:19 10/08/18 10/08/18 05:19 05:19 WBC 10.6 H RBC 3.66 L Hgb 8.5 L Hct 26.2 L MCV 72 L MCH 23.2 L MCHC 32.5 RDW 20.6 H Plt Count 309 Sodium 139.6 Potassium 4.4 Chloride 111 H Carbon Dioxide 21 L Anion Gap 8 BUN 19 Creatinine 1.14 Est GFR ( Amer) 56 L Est GFR (Non-Af Amer) 46 L Glucose 75 Calcium 9.6 10/05/18 10/05/18 13:30 13:30 Creatine Kinase 100 Troponin I < 0.012 Impressions: Hip X-Ray 10/05/18 12:35 IMPRESSION: Mild bilateral degenerative changes. No acute fracture or dislocation. Pelvis X-Ray 10/05/18 13:11 IMPRESSION: NEGATIVE STUDY OF THE RIGHT HIP. NO RADIOGRAPHIC EVIDENCE OF ACUTE INJURY. Chest X-Ray 10/05/18 18:08 IMPRESSION: Mild pulmonary edema without consolidation or pleural effusion. Pelvis CT 10/07/18 00:00 IMPRESSION: 1. Fracture of the left superior pubic ramus. 2. Extensive bone destruction involving the sacrum and the adjacent right ilium. Is there a known neoplasm? Consider biopsy. Assessment and Plan - Diagnosis (1) Pelvic fracture Qualifiers: Encounter type: initial encounter Pelvic bone location: pubis Fracture type: closed Laterality: left Is this a current diagnosis for this admission?: Yes Plan: Continue pain medication and physical therapy. She may need short term rehab. (2) Ufpsv-ao-faddzgw kidney injury Qualifiers: Acute renal failure type: unspecified Chronic kidney disease stage: stage 3 (moderate) Qualified Code(s): N17.9 - Acute kidney failure, unspecified; N18.3 - Chronic kidney disease, stage 3 (moderate) Is this a current diagnosis for this admission?: Yes Plan: Resolved with IV hydration and blood. We will continue to avoid nephrotoxic medications and dosages. (3) Iron deficiency anemia Qualifiers: Iron deficiency anemia type: unspecified iron deficiency Qualified Code(s): D50.9 - Iron deficiency anemia, unspecified Is this a current diagnosis for this admission?: Yes Plan: She was transfused 2 units of packed red blood cells and given iron infusion. She is found to have iron deficiency anemia with iron level less than 10. She was started on oral iron therapy as well. We will continue to monitor. Stool was guaiac negative. (4) COPD (chronic obstructive pulmonary disease) Qualifiers: COPD type: emphysema Emphysema type: centrilobular Qualified Code(s): J43.2 - Centrilobular emphysema Is this a current diagnosis for this admission?: Yes Plan: Not acutely exacerbated. On chronic prednisone. (5) Fall Qualifiers: Encounter type: initial encounter Qualified Code(s): W19.XXXA - Unspecified fall, initial encounter Is this a current diagnosis for this admission?: Yes Plan: Fortunately no fracture detected. Still complaining of severe pain in the left hip. Will CT hip to make sure there is no fracture (6) Hard of hearing Qualifiers: Hearing loss type: presbycusis Laterality: bilateral Qualified Code(s): H91.13 - Presbycusis, bilateral Is this a current diagnosis for this admission?: Yes Plan: The left ear is the better of the 2 so anyone talking to her should go to her left side. (7) Left hip pain Is this a current diagnosis for this admission?: Yes Plan: Will CT hip. She is still having complaints of severe pain in the left hip She is presently getting Tylenol and Ultram as needed. (8) Leukocytosis Qualifiers: Leukocytosis type: unspecified Qualified Code(s): D72.829 - Elevated white blood cell count, unspecified Is this a current diagnosis for this admission?: Yes Plan: Unclear etiology is improved with fluids overnight. (9) Hypertension Qualifiers: Hypertension type: essential hypertension Qualified Code(s): I10 - Essential (primary) hypertension Is this a current diagnosis for this admission?: Yes Plan: We will continue home medications she presently is now normotensive. (10) Lytic lesion of bone on x-ray Is this a current diagnosis for this admission?: Yes Plan: Patient has a large lytic lesion in her sacrum involving also part of the ileum on the right. Will discuss with interventional radiology on Wednesday to see if this is something they can biopsy. - Time Time Spent with patient: 25 Time Spent with patient: 25-34 minutes Smoking Cessation Education: 3 to 10 minutes Medications reviewed and adjusted accordingly: Yes Anticipated discharge: Acute Rehab
[2018-10-08] MEDS ORDERED: LOSARTAN POTASSIUM 50 MG TABLET PO ONE (15:00)
[2018-10-09] MEDS: ALBUTEROL SULFATE 0.083% NEB 2.5 MG/3 ML AMPUL NEB SCH ×4 (00:03→23:47)
[2018-10-09] MEDS: HYDROCODONE/ACETAMINOPHEN 5-325 MG TABLET PO PRN ×3 (03:14→17:06)
[2018-10-09] MEDS: HEPARIN SOD (PORCINE) 5,000 UNIT/ML 1 ML VIAL SUBCUT SCH ×3 (05:16→23:59)
[2018-10-09 05:50] LABS: ABSOLUTE BASOPHILS # (AUTO) 0.1 10^3/uL (0.0-0.2); ABSOLUTE EOSINOPHILS # (AUTO) 0.1 10^3/uL (0.0-0.6); ABSOLUTE LYMPHOCYTES (AUTO) 1.1 10^3/uL (0.5-4.7); ABSOLUTE MONOCYTES (AUTO) 1.1 10^3/uL (0.1-1.4); ABSOLUTE NEUT (AUTO) 12.1 10^3/uL (1.7-8.2); BASOPHILS % (AUTO) 0.6 % (0-2); EOSINOPHILS % (AUTO) 0.9 % (0-6); HEMATOCRIT 28.1 % (36.0-47.0); HEMOGLOBIN 8.8 g/dL (12.0-15.5); LYMPHOCYTES % (AUTO) 7.8 % (13-45); MEAN CORPUSCULAR HEMOGLOBIN 22.6 pg (27.0-33.4); MEAN CORPUSCULAR HGB CONC 31.3 g/dL (32.0-36.0); MEAN CORPUSCULAR VOLUME 72 fl (80-97); MONOCYTES % (AUTO) 7.4 % (3-13); PLATELET COUNT 307 10^3/uL (150-450); RED CELL DISTRIBUTION WIDTH 20.4 % (11.5-14.0); SEGMENTED NEUTROPHILS % (AUTO) 83.3 % (42-78); TOTAL CELLS COUNTED % (AUTO) 100 %; WHITE BLOOD COUNT 14.5 10^3/uL (4.0-10.5)
[2018-10-09 06:10] LABS: ANION GAP 8 (5-19); BLOOD UREA NITROGEN 18 mg/dL (7-20); CALCIUM 9.8 mg/dL (8.4-10.2); CARBON DIOXIDE 23 mmol/L (22-30); CHLORIDE 108 mmol/L (98-107); GLUCOSE 80 mg/dL (75-110); POTASSIUM 4.7 mmol/L (3.6-5.0)
[2018-10-09] MEDS: LORAZEPAM 0.5 MG TABLET PO SCH ×2 (09:34→23:59)
[2018-10-09] MEDS: FERROUS SULFATE 325 MG TABLET PO SCH ×2 (09:34→17:05)
[2018-10-09] MEDS: FLUTICASONE NASAL SPRAY 50 MCG/SPRY 120 SPRAY/16 GM NASL SCH ×2 (09:35→09:37)
[2018-10-09] MEDS: FLUTICASONE/VILANTEROL 200-25 MCG/DOSE IH SCH (09:35)
[2018-10-09] MEDS: NICOTINE 21 MG/24 HR PATCH.TD24 TD SCH (09:35)
[2018-10-09] MEDS: OXYBUTYNIN CHLORIDE 5 MG TABLET PO SCH (09:35)
[2018-10-09] MEDS ORDERED: LOSARTAN POTASSIUM 50 MG TABLET PO SCH (10:00)
[2018-10-09] MEDS: PREDNISONE 10 MG TABLET PO SCH (10:09)
[2018-10-09] MEDS: LOSARTAN POTASSIUM 50 MG TABLET PO SCH (10:22)
[2018-10-09] MEDS ORDERED: LOSARTAN POTASSIUM 50 MG TABLET PO ONE (11:00)
[2018-10-09] MEDS: SODIUM CHLORIDE NASAL SPRAY 44 ML NASL SCH ×3 (12:07→23:59)
--- NOTE | 2018-10-09 14:39 | PDOC PROGRESS REPORT ---
Subjective Progress Note for:: 10/09/18 Subjective:: She is seen resting in bed. She is extremely hard of hearing. Most of her communication is done by written board. She denies any chest pain, shortness of breath or dyspnea at rest. She denies any nausea, vomiting or abdominal pain. She denies any fevers or chills. She is asking for nicotine patch. She has some pain in her left hip from her fall. She states she did take the pain pill and it did help her pain. CT did show she has a pelvic fracture and a lytic lesion of her sacrum. She states she has some lower midback pain as well. She denies any other complaints at the present time. Reason For Visit: IRON DEFICIENCY ANEMIA,ACUTE ON CHRONIC KIDNEY Physical Exam Vital Signs: Temp Pulse Resp BP Pulse Ox 98.4 F 88 21 H 138/70 H 95 10/09/18 11:13 10/09/18 11:13 10/09/18 11:13 10/09/18 11:13 10/09/18 11:13 Intake & Output 10/08/18 10/09/18 10/10/18 06:59 06:59 06:59 Intake Total 3706 1856 Output Total 80 Balance 3626 1856 Weight 44.8 kg 43.2 kg General appearance: PRESENT: no acute distress, thin, well-developed Head exam: PRESENT: atraumatic, normocephalic Eye exam: PRESENT: conjunctiva pink, EOMI, PERRLA. ABSENT: scleral icterus Ear exam: PRESENT: normal external ear exam Mouth exam: PRESENT: moist, tongue midline Neck exam: ABSENT: carotid bruit, JVD, lymphadenopathy, thyromegaly Respiratory exam: PRESENT: clear to auscultation suman, symmetrical, unlabored Cardiovascular exam: PRESENT: RRR. ABSENT: diastolic murmur, rubs, systolic murmur Pulses: PRESENT: normal carotid pulses, normal radial pulses Vascular exam: PRESENT: normal capillary refill GI/Abdominal exam: PRESENT: normal bowel sounds, soft. ABSENT: distended, guarding, mass, organolmegaly, rebound, tenderness Rectal exam: PRESENT: deferred Extremities exam: PRESENT: tenderness - left hip and buttock. ABSENT: calf tenderness, clubbing, pedal edema Musculoskeletal exam: PRESENT: full ROM, tenderness Neurological exam: PRESENT: alert, awake, oriented to person, oriented to place, oriented to time, oriented to situation, CN II-XII grossly intact. ABSENT: motor sensory deficit Psychiatric exam: PRESENT: appropriate affect, normal mood. ABSENT: homicidal ideation, suicidal ideation Skin exam: PRESENT: dry, intact, warm. ABSENT: cyanosis, rash Results Laboratory Results: 10/09/18 05:06 10/09/18 05:06 10/09/18 10/09/18 05:06 05:06 WBC 14.5 H RBC 3.90 Hgb 8.8 L Hct 28.1 L MCV 72 L MCH 22.6 L MCHC 31.3 L RDW 20.4 H Plt Count 307 Seg Neutrophils % 83.3 H Lymphocytes % 7.8 L Monocytes % 7.4 Eosinophils % 0.9 Basophils % 0.6 Absolute Neutrophils 12.1 H Absolute Lymphocytes 1.1 Absolute Monocytes 1.1 Absolute Eosinophils 0.1 Absolute Basophils 0.1 Sodium 138.8 Potassium 4.7 Chloride 108 H Carbon Dioxide 23 Anion Gap 8 BUN 18 Creatinine 1.07 Est GFR ( Amer) > 60 Est GFR (Non-Af Amer) 50 L Glucose 80 Calcium 9.8 10/05/18 10/05/18 13:30 13:30 Creatine Kinase 100 Troponin I < 0.012 Impressions: Hip X-Ray 10/05/18 12:35 IMPRESSION: Mild bilateral degenerative changes. No acute fracture or dislocation. Pelvis X-Ray 10/05/18 13:11 IMPRESSION: NEGATIVE STUDY OF THE RIGHT HIP. NO RADIOGRAPHIC EVIDENCE OF ACUTE INJURY. Chest X-Ray 10/05/18 18:08 IMPRESSION: Mild pulmonary edema without consolidation or pleural effusion. Pelvis CT 10/07/18 00:00 IMPRESSION: 1. Fracture of the left superior pubic ramus. 2. Extensive bone destruction involving the sacrum and the adjacent right ilium. Is there a known neoplasm? Consider biopsy. Assessment and Plan - Diagnosis (1) Pelvic fracture Qualifiers: Encounter type: initial encounter Pelvic bone location: pubis Fracture type: closed Laterality: left Is this a current diagnosis for this admission?: Yes Plan: Continue pain medication and physical therapy. She may need short term rehab. (2) Ttpau-bs-lqktcwe kidney injury Qualifiers: Acute renal failure type: unspecified Chronic kidney disease stage: stage 3 (moderate) Qualified Code(s): N17.9 - Acute kidney failure, unspecified; N18.3 - Chronic kidney disease, stage 3 (moderate) Is this a current diagnosis for this admission?: Yes Plan: Resolved with IV hydration and blood. We will continue to avoid nephrotoxic medications and dosages. (3) Iron deficiency anemia Qualifiers: Iron deficiency anemia type: unspecified iron deficiency Qualified Code(s): D50.9 - Iron deficiency anemia, unspecified Is this a current diagnosis for this admission?: Yes Plan: She was transfused 2 units of packed red blood cells and given iron infusion. She is found to have iron deficiency anemia with iron level less than 10. She was started on oral iron therapy as well. Will give dose of IV iron today We will continue to monitor. Stool was guaiac negative. (4) Protein-calorie malnutrition, moderate Is this a current diagnosis for this admission?: Yes Plan: Evidence by BMI of 18.6, poor skin turgor. Liberalize diet, nutritional supplements (5) COPD (chronic obstructive pulmonary disease) Qualifiers: COPD type: emphysema Emphysema type: centrilobular Qualified Code(s): J43.2 - Centrilobular emphysema Is this a current diagnosis for this admission?: Yes Plan: Not acutely exacerbated. On chronic prednisone. (6) Fall Qualifiers: Encounter type: initial encounter Qualified Code(s): W19.XXXA - Unspecified fall, initial encounter Is this a current diagnosis for this admission?: Yes Plan: Fortunately no fracture detected. Still complaining of severe pain in the left hip. Will CT hip to make sure there is no fracture (7) Hard of hearing Qualifiers: Hearing loss type: presbycusis Laterality: bilateral Qualified Code(s): H91.13 - Presbycusis, bilateral Is this a current diagnosis for this admission?: Yes Plan: The left ear is the better of the 2 so anyone talking to her should go to her left side. (8) Left hip pain Is this a current diagnosis for this admission?: Yes Plan: Will CT hip. She is still having complaints of severe pain in the left hip She is presently getting Tylenol and Ultram as needed. (9) Leukocytosis Qualifiers: Leukocytosis type: unspecified Qualified Code(s): D72.829 - Elevated white blood cell count, unspecified Is this a current diagnosis for this admission?: Yes Plan: Unclear etiology is improved with fluids overnight. (10) Hypertension Qualifiers: Hypertension type: essential hypertension Qualified Code(s): I10 - Essential (primary) hypertension Is this a current diagnosis for this admission?: Yes Plan: We will continue home medications she presently is now normotensive. (11) Lytic lesion of bone on x-ray Is this a current diagnosis for this admission?: Yes Plan: Patient has a large lytic lesion in her sacrum involving also part of the ileum on the right. Will discuss with interventional radiology on Wednesday to see if this is something they can biopsy. - Time Time Spent with patient: 25-34 minutes Total Critical Time (Minutes): 20 Medications reviewed and adjusted accordingly: Yes Anticipated discharge: Acute Rehab - Inpatient Certification Based on my medical assessment, after consideration of the patient's comorbidities, presenting symptoms, or acuity I expect that the services needed warrant INPATIENT care.: Yes I certify that my determination is in accordance with my understanding of Medicare's requirements for reasonable and necessary INPATIENT services [42 CFR 412.3e].: Yes Medical Necessity: Need for Pain Control, Risk of Complication if Not Cared For in Hospital
[2018-10-10] MEDS: HEPARIN SOD (PORCINE) 5,000 UNIT/ML 1 ML VIAL SUBCUT SCH ×3 (05:19→21:35)
[2018-10-10] MEDS: HYDROCODONE/ACETAMINOPHEN 5-325 MG TABLET PO PRN ×3 (05:20→21:39)
[2018-10-10] MEDS: ALBUTEROL SULFATE 0.083% NEB 2.5 MG/3 ML AMPUL NEB SCH ×2 (08:16→17:47)
[2018-10-10] MEDS: SODIUM CHLORIDE NASAL SPRAY 44 ML NASL SCH ×4 (08:57→21:37)
[2018-10-10] MEDS: FERROUS SULFATE 325 MG TABLET PO SCH ×2 (08:58→17:05)
[2018-10-10] MEDS: LOSARTAN POTASSIUM 50 MG TABLET PO SCH (09:00)
[2018-10-10] MEDS: NICOTINE 21 MG/24 HR PATCH.TD24 TD SCH (09:00)
[2018-10-10] MEDS: PREDNISONE 10 MG TABLET PO SCH (09:01)
[2018-10-10] MEDS: OXYBUTYNIN CHLORIDE 5 MG TABLET PO SCH (09:01)
[2018-10-10] MEDS: LORAZEPAM 0.5 MG TABLET PO SCH ×2 (09:01→21:36)
[2018-10-10] MEDS: FLUTICASONE/VILANTEROL 200-25 MCG/DOSE IH SCH (09:01)
--- NOTE | 2018-10-10 14:44 | PDOC PROGRESS REPORT ---
Subjective Progress Note for:: 10/10/18 Subjective:: She is seen resting in bed. She is extremely hard of hearing. Most of her communication is done by written board. She denies any chest pain, shortness of breath or dyspnea at rest. She denies any nausea, vomiting or abdominal pain. She denies any fevers or chills. She is asking for nicotine patch. She has some pain in her left hip from her fall. She states she did take the pain pill and it did help her pain. CT did show she has a pelvic fracture and a lytic lesion of her sacrum. She states she has some lower midback pain as well. She denies any other complaints at the present time. Reason For Visit: IRON DEFICIENCY ANEMIA,ACUTE ON CHRONIC KIDNEY Physical Exam Vital Signs: Temp Pulse Resp BP Pulse Ox 98.2 F 89 24 H 141/65 H 98 10/10/18 11:45 10/10/18 11:45 10/10/18 11:45 10/10/18 11:45 10/10/18 11:45 Intake & Output 10/09/18 10/10/18 10/11/18 06:59 06:59 06:59 Intake Total 1856 1164 480 Output Total 1000 Balance 1856 164 480 Weight 43.2 kg 34.7 kg General appearance: PRESENT: no acute distress, thin, well-developed Head exam: PRESENT: atraumatic, normocephalic Eye exam: PRESENT: conjunctiva pale Ear exam: PRESENT: normal external ear exam Mouth exam: PRESENT: moist, tongue midline Neck exam: ABSENT: carotid bruit, JVD, lymphadenopathy, thyromegaly Respiratory exam: PRESENT: clear to auscultation suman. ABSENT: rales, rhonchi, wheezes Cardiovascular exam: PRESENT: RRR. ABSENT: diastolic murmur, rubs, systolic murmur Pulses: PRESENT: normal dorsalis pedis pul Vascular exam: PRESENT: normal capillary refill GI/Abdominal exam: PRESENT: normal bowel sounds, soft. ABSENT: distended, guarding, mass, organolmegaly, rebound, tenderness Rectal exam: PRESENT: deferred Extremities exam: PRESENT: full ROM. ABSENT: calf tenderness, clubbing, pedal edema Musculoskeletal exam: PRESENT: full ROM, tenderness Neurological exam: PRESENT: alert, awake, oriented to person, oriented to place, oriented to time, oriented to situation, CN II-XII grossly intact, other - extremely hard of hearing. ABSENT: motor sensory deficit Psychiatric exam: PRESENT: appropriate affect, normal mood. ABSENT: homicidal ideation, suicidal ideation Skin exam: PRESENT: dry, intact, warm. ABSENT: cyanosis, rash Results Laboratory Results: 10/09/18 05:06 10/09/18 05:06 10/05/18 10/05/18 13:30 13:30 Creatine Kinase 100 Troponin I < 0.012 Impressions: Hip X-Ray 10/05/18 12:35 IMPRESSION: Mild bilateral degenerative changes. No acute fracture or dislocation. Pelvis X-Ray 10/05/18 13:11 IMPRESSION: NEGATIVE STUDY OF THE RIGHT HIP. NO RADIOGRAPHIC EVIDENCE OF ACUTE INJURY. Chest X-Ray 10/05/18 18:08 IMPRESSION: Mild pulmonary edema without consolidation or pleural effusion. Pelvis CT 10/07/18 00:00 IMPRESSION: 1. Fracture of the left superior pubic ramus. 2. Extensive bone destruction involving the sacrum and the adjacent right ilium. Is there a known neoplasm? Consider biopsy. Assessment and Plan - Diagnosis (1) Pelvic fracture Qualifiers: Encounter type: initial encounter Pelvic bone location: pubis Fracture type: closed Laterality: left Is this a current diagnosis for this admission?: Yes Plan: Continue pain medication and physical therapy. She she has not been able to ambulate without assistance presently. Will likely need short-term rehab. Discussed with her daughter Ernestine who lives in [place] as well. She is in agreement. (2) Kjrrk-[id number] kidney injury Qualifiers: Acute renal failure type: unspecified Chronic kidney disease stage: stage 3 (moderate) Qualified Code(s): N17.9 - Acute kidney failure, unspecified; N18.3 - Chronic kidney disease, stage 3 (moderate) Is this a current diagnosis for this admission?: Yes Plan: Resolved with IV hydration and blood. We will continue to avoid nephrotoxic medications and dosages. (3) Iron deficiency anemia Qualifiers: Iron deficiency anemia type: unspecified iron deficiency Qualified Code(s): D50.9 - Iron deficiency anemia, unspecified Is this a current diagnosis for this admission?: Yes Plan: She was transfused 2 units of packed red blood cells and given iron infusion. She is found to have iron deficiency anemia with iron level less than 10. She was started on oral iron therapy as well. Will give dose of IV iron today We will continue to monitor. Stool was guaiac negative. (4) Lytic lesion of bone on x-ray Is this a current diagnosis for this admission?: Yes Plan: She has significant lytic changes in the sacrum and the right ilium. Discussed with Dr. Gallardo, radiologist, she recommends getting CT of the chest, abdomen and pelvis with oral and IV contrast today prior to contemplating bone biopsy of the sacrum. Daughter is in agreement with this as well. (5) Protein-calorie malnutrition, moderate Is this a current diagnosis for this admission?: Yes Plan: Evidence by BMI of 18.6, poor skin turgor. Liberalize diet, nutritional supplements (6) COPD (chronic obstructive pulmonary disease) Qualifiers: COPD type: emphysema Emphysema type: centrilobular Qualified Code(s): J43 .2 - Centrilobular emphysema Is this a current diagnosis for this admission?: Yes Plan: Not acutely exacerbated. On chronic prednisone. (7) Fall Qualifiers: Encounter type: initial encounter Qualified Code(s): W19.XXXA - Unspecified fall, initial encounter Is this a current diagnosis for this admission?: Yes Plan: Fortunately no fracture detected. Still complaining of severe pain in the left hip. Will CT hip to make sure there is no fracture (8) Hard of hearing Qualifiers: Hearing loss type: presbycusis Laterality: bilateral Qualified Code(s): H91.13 - Presbycusis, bilateral Is this a current diagnosis for this admission?: Yes Plan: The left ear is the better of the 2 so anyone talking to her should go to her left side. (9) Left hip pain Is this a current diagnosis for this admission?: Yes Plan: Will CT hip. She is still having complaints of severe pain in the left hip She is presently getting Tylenol and Ultram as needed. (10) Leukocytosis Qualifiers: Leukocytosis type: unspecified Qualified Code(s): D72.829 - Elevated white blood cell count, unspecified Is this a current diagnosis for this admission?: Yes Plan: Unclear etiology is improved with fluids overnight. (11) Hypertension Qualifiers: Hypertension type: essential hypertension Qualified Code(s): I10 - Essential (primary) hypertension Is this a current diagnosis for this admission?: Yes Plan: We will continue home medications she presently is now normotensive. - Time Time Spent with patient: 25-34 minutes Total Critical Time (Minutes): 20 Smoking Cessation Education: 3 to 10 minutes Medications reviewed and adjusted accordingly: Yes - Inpatient Certification Based on my medical assessment, after consideration of the patient's comorbidities, presenting symptoms, or acuity I expect that the services needed warrant INPATIENT care.: Yes I certify that my determination is in accordance with my understanding of Medicare's requirements for reasonable and necessary INPATIENT services [42 CFR 412.3e].: Yes Medical Necessity: Need for Pain Control, Risk of Complication if Not Cared For in Hospital
--- NOTE | 2018-10-10 16:44 | RADIOLOGY REPORT (SQ) ---
EXAM DESCRIPTION: CT CHEST WITH COMPLETED DATE/TIME: 10/10/2018 4:25 pm REASON FOR STUDY: Smoker Sacral lytic lesion? COMPARISON: None. TECHNIQUE: CT scan of the chest performed using helical scanning technique with dynamic intravenous contrast injection. Images reviewed with lung, soft tissue and bone windows. Reconstructed coronal and sagittal MPR and MIP images reviewed. All images stored on PACS. All CT scanners at this facility use dose modulation, iterative reconstruction, and/or weight based d osing when appropriate to reduce radiation dose to as low as reasonably achievable (ALARA). [facility]: Dose Right [facility]: CareDose [facility]: Dose Right [facility]: Teradose 4D [facility]: [employer] CONTRAST TYPE AND DOSE: 51 mL Omnipaque 350- low osmolar. RENAL FUNCTION: BUN 18 creatinine 1.07 RADIATION DOSE: . LIMITATIONS: None. FINDINGS: LUNGS AND PLEURA: Centrilobular emphysematous changes. Marked opacification in the right lower lobe. Mild dependent atelectasis in the left base. Small right pleural effusion. HILAR AND MEDIASTINAL STRUCTURES: No identified masses or abnormal nodes. HEART AND VASCULAR STRUCTURES: Small pericardial effusion. No aneurysm. Coronary atherosclerosis is present. HARDWARE: None in the chest. UPPER ABDOMEN: See separate report of the CT of the abdomen. THYROID AND OTHER SOFT TISSUES: No masses. No adenopathy. BONES: No significant finding. OTHER: No other significant finding. IMPRESSION: Right lower lobe pneumonia. Mild dependent atelectasis in the left base. Small right p leural effusion. TECHNICAL DOCUMENTATION: JOB ID: [id number] Quality ID # [id number]: Final reports with documentation of one or more dose reduction techniques (e.g., Au tomated exposure control, adjustment of the mA and/or kV according to patient size, use of iterative reconstruction technique) 2010 [employer]- All Rights Reserved Reading location - IP/workstation name: [email or web address]
--- NOTE | 2018-10-10 16:53 | RADIOLOGY REPORT (SQ) ---
EXAM DESCRIPTION: CT ABD/PELVIS WITH IV ORAL COMPLETED DATE/TIME: 10/10/2018 4:25 pm REASON FOR STUDY: Sacral lytic lesion? COMPARISON: None. TECHNIQUE: CT scan of the abdomen and pelvis performed using helical scanning technique with dynamic intravenous contrast injection. Oral contrast. Images reviewed with lung, soft tissue, and bone win dows. Reconstructed coronal and sagittal MPR images reviewed. Delayed images for evaluation of the ur inary system also acquired. All images stored on PACS. All CT scanners at this facility use dose modulation, iterative reconstruction, and/or weight based d osing when appropriate to reduce radiation dose to as low as reasonably achievable (ALARA). [facility]: Dose Right [facility]: CareDose [facility]: Dose Right [facility]: Teradose 4D [facility]: [employer] CONTRAST TYPE AND DOSE: contrast/concentration: Isovue 350.00 mg/ml; Total Contrast Delivered: 51.0 ml; Total Saline Delivered: 65.0 ml RENAL FUNCTION: BUN 18 creatinine 1.07 RADIATION DOSE: CT Rad equipment meets quality standard of care and radiation dose reduction techniq ues were employed. CTDIvol: 4.8 - 5.2 mGy. DLP: 643 mGy-cm.. LIMITATIONS: None. FINDINGS: LOWER CHEST: No significant findings. No nodules or infiltrates. LIVER: Normal size. No masses. No dilated ducts. SPLEEN: Normal size. No focal lesions. PANCREAS: No masses. No significant calcifications. No adjacent inflammation or peripancreatic fluid collections. Pancreatic duct not dilated. GALLBLADDER: No identified stones by CT criteria. No inflammatory changes to suggest cholecystitis. ADRENAL GLANDS: No significant masses or asymmetry. RIGHT KIDNEY AND URETER: No solid masses. No significant calcifications. No hydronephrosis or hyd roureter. LEFT KIDNEY AND URETER: No solid masses. No significant calcifications. No hydronephrosis or hydr oureter. AORTA AND VESSELS: There is aneurysmal dilatation of the infrarenal abdominal aorta and proximal righ t common iliac arteries. Maximal aortic dimension is 27.5 mm. RETROPERITONEUM: No retroperitoneal adenopathy, hemorrhage or masses. BOWEL AND PERITONEAL CAVITY: Mild sigmoid diverticulosis. No masses or inflammatory changes. APPENDIX: Not identified. PELVIS: No mass. No free fluid. Normal bladder. ABDOMINAL WALL: No masses. No hernias. BONES: There are some sclerotic lesions in some of the vertebral bodies. Once again there is large l ytic area involving the sacrum and the adjacent right ilium. OTHER: No other significant finding. IMPRESSION: 1. No acute finding in the abdomen or pelvis. 2. Large lytic lesion in the sacrum and adjacent right ilium. There are subtle sclerotic lesions in the vertebral bodies concerning for metastases. 3. 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 4. Mild diverticulosis coli. TECHNICAL DOCUMENTATION: JOB ID: [id number] Quality ID # [id number]: Final reports with documentation of one or more dose reduction techniques (e.g., Au tomated exposure control, adjustment of the mA and/or kV according to patient size, use of iterative reconstruction technique) 2010 [employer]- All Rights Reserved Reading location - IP/workstation name: [email or web address]
[2018-10-11] MEDS: ALBUTEROL SULFATE 0.083% NEB 2.5 MG/3 ML AMPUL NEB SCH ×3 (00:08→15:52)
[2018-10-11] MEDS: HEPARIN SOD (PORCINE) 5,000 UNIT/ML 1 ML VIAL SUBCUT SCH ×3 (05:13→22:03)
[2018-10-11 07:14] LABS: ANION GAP 8 (5-19); BLOOD UREA NITROGEN 20 mg/dL (7-20); CALCIUM 10.1 mg/dL (8.4-10.2); CARBON DIOXIDE 27 mmol/L (22-30); CHLORIDE 102 mmol/L (98-107); GLUCOSE 79 mg/dL (75-110); POTASSIUM 5.2 mmol/L (3.6-5.0)
--- NOTE | 2018-10-11 09:05 | Progress Note Acknowledgement ---
Progress Note Acknowledgement Progess Note Acknowledgement: I, the undersigned member of the medical staff with appropriate privileges and with supervisory authority over [Neal Reynoso], a dependent practice allied health professional, acknowledge that I have reviewed the progress notes entered on this patient, and in my professional judgment believe that the assessment made and/or any care evidenced was appropriate
--- NOTE | 2018-10-11 09:18 | PDOC PROGRESS REPORT ---
Subjective Progress Note for:: 10/11/18 Subjective:: None this a.m. Reason For Visit: IRON DEFICIENCY ANEMIA,ACUTE ON CHRONIC KIDNEY Physical Exam Vital Signs: Temp Pulse Resp BP Pulse Ox 98.5 F 80 18 145/76 H 90 L 10/11/18 07:58 10/11/18 07:58 10/11/18 07:58 10/11/18 07:58 10/11/18 07:58 Intake & Output 10/10/18 10/11/18 10/12/18 06:59 06:59 06:59 Intake Total 1164 2860 Output Total 1000 Balance 164 2860 Weight 34.7 kg 34.7 kg Neck exam: ABSENT: carotid bruit, JVD, lymphadenopathy, thyromegaly Respiratory exam: PRESENT: clear to auscultation suman. ABSENT: rales, rhonchi, wheezes Cardiovascular exam: PRESENT: RRR. ABSENT: diastolic murmur, rubs, systolic murmur Pulses: PRESENT: +1 pedal pulses bilateral GI/Abdominal exam: PRESENT: normal bowel sounds, soft. ABSENT: distended, guarding, mass, organolmegaly, rebound, tenderness Extremities exam: PRESENT: full ROM. ABSENT: calf tenderness, clubbing, pedal edema Neurological exam: PRESENT: other - Unable to assess as patient is extremely sle epy Psychiatric exam: PRESENT: other - Unable to assess as patient extremely sleepy Skin exam: PRESENT: dry, intact, warm. ABSENT: cyanosis, rash Results Laboratory Results: 10/09/18 05:06 10/11/18 05:47 10/11/18 05:47 Sodium 136.8 L Potassium 5.2 H Chloride 102 Carbon Dioxide 27 Anion Gap 8 BUN 20 Creatinine 1.12 Est GFR ( Amer) 57 L Est GFR (Non-Af Amer) 47 L Glucose 79 Calcium 10.1 10/05/18 10/05/18 13:30 13:30 Creatine Kinase 100 Troponin I < 0.012 Impressions: Hip X-Ray 10/05/18 12:35 IMPRESSION: Mild bilateral degenerative changes. No acute fracture or dislocation. Pelvis X-Ray 10/05/18 13:11 IMPRESSION: NEGATIVE STUDY OF THE RIGHT HIP. NO RADIOGRAPHIC EVIDENCE OF ACUTE INJURY. Chest X-Ray 10/05/18 18:08 IMPRESSION: Mild pulmonary edema without consolidation or pleural effusion. Pelvis CT 10/07/18 00:00 IMPRESSION: 1. Fracture of the left superior pubic ramus. 2. Extensive bone destruction involving the sacrum and the adjacent right ilium. Is there a known neoplasm? Consider biopsy. Abdomen/Pelvis CT 10/10/18 00:00 IMPRESSION: 1. No acute finding in the abdomen or pelvis. 2. Large lytic lesion in the sacrum and adjacent right ilium. There are subtle sclerotic lesions in the vertebral bodies concerning for metastases. 3. 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 4. Mild diverticulosis coli. Chest CT 10/10/18 00:00 IMPRESSION: Right lower lobe pneumonia. Mild dependent atelectasis in the left base. Small right pleural effusion. Assessment and Plan - Diagnosis (1) Pelvic fracture Qualifiers: Encounter type: initial encounter Pelvic bone location: pubis Fracture type: closed Laterality: left Is this a current diagnosis for this admission?: Yes Plan: Continue pain medication and physical therapy. She she has not been able to ambulate without assistance presently. Will likely need short-term rehab. Discussed with her daughter Ernestine who lives in [place] as well. She is in agreement. October 11, 2018-continue current pain management therapy. This is nonoperable left superior ramus fracture. (2) Fkbom-uh-retxsuj kidney injury Qualifiers: Acute renal failure type: unspecified Chronic kidney disease stage: stage 3 (moderate) Qualified Code(s): N17.9 - Acute kidney failure, unspecified; N18.3 - Chronic kidney disease, stage 3 (moderate) Is this a current diagnosis for this admission?: Yes Plan: Resolved with IV hydration and blood. We will continue to avoid nephrotoxic medications and dosages. October 11, 2018-resolved stable (3) Iron deficiency anemia Qualifiers: Iron deficiency anemia type: unspecified iron deficiency Qualified Code(s): D50.9 - Iron deficiency anemia, unspecified Is this a current diagnosis for this admission?: Yes Plan: She was transfused 2 units of packed red blood cells and given iron infusion. She is found to have iron deficiency anemia with iron level less than 10. She was started on oral iron therapy as well. Will give dose of IV iron today We will continue to monitor. Stool was guaiac negative. October 11, 2018-chronic stable continue iron supplements. (4) Lytic lesion of bone on x-ray Is this a current diagnosis for this admission?: Yes Plan: October 11, 2018-pelvis CT shows lytic lesion of sacrum. At this time will consult Dr. Masters with oncology to see if there is any further recommendations. (5) Left hip pain Is this a current diagnosis for this admission?: Yes Plan: Will CT hip. She is still having complaints of severe pain in the left hip She is presently getting Tylenol and Ultram as needed. October 11 1218-CT the hip showed no acute fracture. Continue Tylenol and Ultram as needed. (6) Hypertension Qualifiers: Hypertension type: essential hypertension Qualified Code(s): I10 - Essential (primary) hypertension Is this a current diagnosis for this admission?: Yes Plan: We will continue home medications she presently is now normotensive. October 11, 2018-stable. Continue home medications. (7) Protein-calorie malnutrition, moderate Is this a current diagnosis for this admission?: Yes Plan: Evidence by BMI of 18.6, poor skin turgor. Liberalize diet, nutritional supplements October 11 1218-continue nutritional supplementation. - Time Time Spent with patient: 15-24 minutes - Inpatient Certification Based on my medical assessment, after consideration of the patient's comorbidities, presenting symptoms, or acuity I expect that the services needed warrant INPATIENT care.: Yes I certify that my determination is in accordance with my understanding of Medicare's requirements for reasonable and necessary INPATIENT services [42 CFR 412.3e].: Yes Medical Necessity: Other - Pain control, oncology consultation for lytic lesions.
[2018-10-11] MEDS: SODIUM CHLORIDE NASAL SPRAY 44 ML NASL SCH ×4 (09:34→22:05)
[2018-10-11] MEDS: OXYBUTYNIN CHLORIDE 5 MG TABLET PO SCH (09:35)
[2018-10-11] MEDS: PREDNISONE 10 MG TABLET PO SCH (09:35)
[2018-10-11] MEDS: FLUTICASONE/VILANTEROL 200-25 MCG/DOSE IH SCH (09:35)
[2018-10-11] MEDS: FERROUS SULFATE 325 MG TABLET PO SCH ×2 (09:35→17:18)
[2018-10-11] MEDS: LOSARTAN POTASSIUM 50 MG TABLET PO SCH (09:35)
[2018-10-11] MEDS: LORAZEPAM 0.5 MG TABLET PO SCH ×2 (09:35→22:04)
[2018-10-11] MEDS: NICOTINE 21 MG/24 HR PATCH.TD24 TD SCH (09:36)
[2018-10-11] MEDS: LEVOFLOXACIN 750 MG/D5W RTU 750 MG/150 ML RTUPB IV SCH (09:37)
[2018-10-11] MEDS: HYDROCODONE/ACETAMINOPHEN 5-325 MG TABLET PO PRN ×2 (09:50→22:04)
[2018-10-11] MEDS: NORMAL SALINE 1000 ML 1,000 ML IV PRN (11:19)
[2018-10-11] MEDS: DOCUSATE SODIUM 100 MG CAPSULE PO PRN (22:04)
[2018-10-12] MEDS: ALBUTEROL SULFATE 0.083% NEB 2.5 MG/3 ML AMPUL NEB SCH ×3 (00:02→16:20)
[2018-10-12] MEDS: HEPARIN SOD (PORCINE) 5,000 UNIT/ML 1 ML VIAL SUBCUT SCH ×3 (05:08→21:18)
[2018-10-12 06:35] LABS: HEMATOCRIT 26.6 % (36.0-47.0); HEMOGLOBIN 8.3 g/dL (12.0-15.5); MEAN CORPUSCULAR HEMOGLOBIN 22.7 pg (27.0-33.4); MEAN CORPUSCULAR HGB CONC 31.2 g/dL (32.0-36.0); MEAN CORPUSCULAR VOLUME 73 fl (80-97); PLATELET COUNT 368 10^3/uL (150-450); RED BLOOD COUNT 3.66 10^6/uL (3.72-5.28); RED CELL DISTRIBUTION WIDTH 21.7 % (11.5-14.0); WHITE BLOOD COUNT 10.4 10^3/uL (4.0-10.5)
[2018-10-12 06:59] LABS: ANION GAP 10 (5-19); BLOOD UREA NITROGEN 21 mg/dL (7-20); CALCIUM 10.1 mg/dL (8.4-10.2); CARBON DIOXIDE 25 mmol/L (22-30); CHLORIDE 102 mmol/L (98-107); GLUCOSE 77 mg/dL (75-110); POTASSIUM 4.9 mmol/L (3.6-5.0)
[2018-10-12] MEDS: NORMAL SALINE 1000 ML 1,000 ML IV PRN (09:06)
--- NOTE | 2018-10-12 09:13 | PDOC CONSULTATION ---
Consultation Consult Date: 10/12/18 Attending physician:: KWADWO RICH Provider Consulted: JERI MARTINO Consult reason:: Lytic lesion bone, concern metastatic ca History of Present Illness Admission Date/PCP: 10/05/18 18:22 MAURY CHANG History of Present Illness: YAEL FRANCISCO is a 78 year old female who had a fall in an assisted living facility, of note she has had pain in her hip for probably about 3 to 4 weeks now, although she does not remember the exact time, and it became weaker and weaker and that is which she feels caused the fall, Initial hip x-rays were negative, CT was recommended, pelvis CT was done which indicated fracture of the left superior pubic ramus as well as extensive lytic lesion involving the sacrum and the right ilium. Thereafter, she had a CT of the chest abdomen pelvis, CT of the chest notes a right lower lobe pneumonia and in my review of the images I believe there is probably a mass in the right lower lobe. She has an [id number] history of tobacco, so a lung cancer with spread to the bone would be most likely. She is very hard of hearing, and does seem to have some element of dementia. Past Medical History Cardiac Medical History: Reports: Hypertension Pulmonary Medical History: Reports: Chronic Obstructive Pulmonary Disease (COPD) Endocrine Medical History: Reports: Hypothyroidism Psychiatric Medical History: Reports: Depression Past Surgical History Past Surgical History: Reports: Tonsillectomy Social History Information Source: Patient Lives with: Family Smoking Status: Former Smoker Frequency of Alcohol Use: Rare Hx Recreational Drug Use: No Drugs: None Hx Prescription Drug Abuse: No - Advance Directive Resuscitation Status: Full Code Family History Family History: Reviewed & Not Pertinent, Arthritis, COPD, Hypertension Parental Family History Reviewed: Yes Children Family History Reviewed: Yes Sibling(s) Family History Reviewed.: Yes Medication/Allergy Home Medications: Acetaminophen [Tylenol 325 mg Tablet] 650 mg PO Q4HP PRN 10/05/18 Albuterol Sulfate [Albuterol Sulfate Hfa] 2 puff IH Q8HP PRN 10/05/18 Albuterol Sulfate [Ventolin 0.083% Neb 2.5 mg/3 mL Ampul] 3 ml NEB Q8 10/05/18 Docusate Sodium [Colace 100 mg Capsule] 100 mg PO BIDP PRN 10/05/18 Fluticasone Propionate [Flonase Nasal [place] 50 Mcg/[place] 16 gm] 1 spray NASL BID 10/05/18 Fluticasone/Salmeterol [Advair 500-50 Diskus 14 Dose/Diskus] 1 puff IH Q12 10/05/18 Furosemide [Lasix 20 mg Tablet] 10 mg PO DAILY 10/05/18 Guaifenesin/D-Methorphan Hb [Tussin Dm Liquid] 10 ml PO Q6HP PRN 10/05/18 Hydrochlorothiazide [Hydrodiuril 12.5 mg Tablet] 12.5 mg PO DAILY 10/05/18 Lorazepam [Ativan 0.5 mg Tablet] 0.25 mg PO Q12 10/05/18 Meloxicam [Mobic] 7.5 mg PO DAILY 10/05/18 Oxybutynin Chloride [Ditropan 5 mg Tablet] 5 mg PO DAILY 10/05/18 Polyethylene Glycol 3350 [Miralax Powder 17 gm/Packet] 17 gm PO DAILYP PRN 10/05/18 Prednisone [Deltasone 10 mg Tablet] 10 mg PO DAILY 10/05/18 Allergies/Adverse Reactions: No Known Allergies Allergy (Verified 10/05/18 12:28) Review of Systems Constitutional: ABSENT: chills, fever(s), headache(s), weight gain, weight loss Eyes: ABSENT: visual disturbances Ears: ABSENT: hearing changes Cardiovascular: ABSENT: chest pain, dyspnea on exertion, edema, orthropnea, palpitations Respiratory: ABSENT: cough, hemoptysis Gastrointestinal: ABSENT: abdominal pain, constipation, diarrhea, hematemesis, hematochezia, nausea, vomiting Genitourinary: ABSENT: dysuria, hematuria Musculoskeletal: ABSENT: joint swelling Integumentary: ABSENT: rash, wounds Neurological: ABSENT: abnormal gait, abnormal speech, confusion, dizziness, focal weakness, syncope Psychiatric: ABSENT: anxiety, depression, homidical ideation, suicidal ideation Endocrine: ABSENT: cold intolerance, heat intolerance, polydipsia, polyuria Hematologic/Lymphatic: ABSENT: easy bleeding, easy bruising Physical Exam Vital Signs: Temp Pulse Resp BP Pulse Ox 98.2 F 84 16 141/70 H 93 10/11/18 23:50 10/12/18 07:35 10/12/18 07:35 10/11/18 23:50 10/12/18 00:03 Intake & Output 10/11/18 10/12/18 10/13/18 06:59 06:59 06:59 Intake Total 2860 810 Output Total 1775 Balance 2860 -965 Weight 34.7 kg 37.1 kg General appearance: PRESENT: no acute distress, well-developed, well-nourished Head exam: PRESENT: atraumatic, normocephalic Eye exam: PRESENT: conjunctiva pink, EOMI, PERRLA. ABSENT: scleral icterus Ear exam: PRESENT: normal external ear exam Mouth exam: PRESENT: moist, tongue midline Neck exam: ABSENT: carotid bruit, JVD, lymphadenopathy, thyromegaly Respiratory exam: PRESENT: clear to auscultation [place]. ABSENT: rales, rhonchi, wheezes Cardiovascular exam: PRESENT: RRR. ABSENT: diastolic murmur, rubs, systolic murmur Pulses: PRESENT: normal dorsalis pedis pul Vascular exam: PRESENT: normal capillary refill GI/Abdominal exam: PRESENT: normal bowel sounds, soft. ABSENT: distended, guarding, mass, organolmegaly, rebound, tenderness Rectal exam: PRESENT: deferred Extremities exam: PRESENT: full ROM. ABSENT: calf tenderness, clubbing, pedal edema Neurological exam: PRESENT: alert, awake, oriented to person, oriented to place, oriented to time, oriented to situation, CN II-XII grossly intact. ABSENT: motor sensory deficit Psychiatric exam: PRESENT: appropriate affect, normal mood. ABSENT: homicidal ideation, suicidal ideation Skin exam: PRESENT: dry, intact, warm. ABSENT: cyanosis, rash Results Laboratory Results: 10/12/18 05:53 10/12/18 05:53 10/12/18 10/12/18 05:53 05:53 WBC 10.4 RBC 3.66 L Hgb 8.3 L Hct 26.6 L MCV 73 L MCH 22.7 L MCHC 31.2 L RDW 21.7 H Plt Count 368 Sodium 136.8 L Potassium 4.9 Chloride 102 Carbon Dioxide 25 Anion Gap 10 BUN 21 H Creatinine 1.31 H Est GFR ( Amer) 48 L Est GFR (Non-Af Amer) 39 L Glucose 77 Calcium 10.1 10/05/18 10/05/18 13:30 13:30 Creatine Kinase 100 Troponin I < 0.012 Impressions: Hip X-Ray 10/05/18 12:35 IMPRESSION: Mild bilateral degenerative changes. No acute fracture or dislocation. Pelvis X-Ray 10/05/18 13:11 IMPRESSION: NEGATIVE STUDY OF THE RIGHT HIP. NO RADIOGRAPHIC EVIDENCE OF ACUTE INJURY. Chest X-Ray 10/05/18 18:08 IMPRESSION: Mild pulmonary edema without consolidation or pleural effusion. Pelvis CT 10/07/18 00:00 IMPRESSION: 1. Fracture of the left superior pubic ramus. 2. Extensive bone destruction involving the sacrum and the adjacent right ilium. Is there a known neoplasm? Consider biopsy. Abdomen/Pelvis CT 10/10/18 00:00 IMPRESSION: 1. No acute finding in the abdomen or pelvis. 2. Large lytic lesion in the sacrum and adjacent right ilium. There are subtle sclerotic lesions in the vertebral bodies concerning for metastases. 3. 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 4. Mild diverticulosis coli. Chest CT 10/10/18 00:00 IMPRESSION: Right lower lobe pneumonia. Mild dependent atelectasis in the left base. Small right pleural effusion. Status: Image reviewed by me Assessment & Plan - Diagnosis (1) Bone metastases Is this a current diagnosis for this admission?: Yes Plan: Likely lytic lesion of the pelvis seems to be a bone metastasis, most likely from the lung. I spoke with her daughter Ernestine delaney who agrees with doing a biopsy, I discussed her case with orthopedics, Dr. Crum he does not feel like a surgical intervention is possible for her but recommended tissue diagnosis with CT-guided biopsy along with consideration of radiation therapy. We will order these things. (2) Mass of right lung Is this a current diagnosis for this admission?: Yes Plan: I believe she has a right lower lobe lung mass, this is probably the primary lesion. But, we have sent myeloma work-up but I believe this is probably going to be negative. - Time Time Spent: Greater than 70 Minutes - Inpatient Certification Based on my medical assessment, after consideration of the patient's comorbidities, presenting symptoms, or acuity I expect that the services needed warrant INPATIENT care.: Yes I certify that my determination is in accordance with my understanding of Medicare's requirements for reasonable and necessary INPATIENT services [42 CFR 412.3e].: Yes Medical Necessity: Need for Pain Control, Need for Surgery, Risk of Complication if Not Cared For in Hospital
[2018-10-12] MEDS: FLUTICASONE/VILANTEROL 200-25 MCG/DOSE IH SCH (09:15)
[2018-10-12] MEDS: SODIUM CHLORIDE NASAL SPRAY 44 ML NASL SCH ×3 (09:15→21:09)
[2018-10-12] MEDS: LOSARTAN POTASSIUM 50 MG TABLET PO SCH (09:17)
--- NOTE | 2018-10-12 09:21 | PDOC CONSULTATION ---
Consultation Consult Date: 10/12/18 Provider Consulted: MAKENNA WOLFE History of Present Illness Admission Date/PCP: 10/05/18 18:22 MAURY CHANG History of Present Illness: YAEL FRANCISCO is a 78 year old female The patient is a 78-year-old white female with a past medical history notable for an absence of any primary malignancies who presented with hip and pelvic pain. Imaging demonstrates a large lytic lesion at the sacroiliac joint and a superior pubic ramus fracture. Past Medical History Cardiac Medical History: Reports: Hypertension Pulmonary Medical History: Reports: Chronic Obstructive Pulmonary Disease (COPD) Endocrine Medical History: Reports: Hypothyroidism Psychiatric Medical History: Reports: Depression Past Surgical History Past Surgical History: Reports: Tonsillectomy Social History Information Source: [facility] Lives with: Family Smoking Status: Former Smoker Frequency of Alcohol Use: Rare Hx Recreational Drug Use: No Drugs: None Hx Prescription Drug Abuse: No - Advance Directive Resuscitation Status: Full Code Family History Family History: Reviewed & Not Pertinent, Arthritis, COPD, Hypertension Parental Family History Reviewed: No Children Family History Reviewed: No Sibling(s) Family History Reviewed.: No Medication/Allergy Home Medications: Acetaminophen [Tylenol 325 mg Tablet] 650 mg PO Q4HP PRN 10/05/18 Albuterol Sulfate [Albuterol Sulfate Hfa] 2 puff IH Q8HP PRN 10/05/18 Albuterol Sulfate [Ventolin 0.083% Neb 2.5 mg/3 mL Ampul] 3 ml NEB Q8 10/05/18 Docusate Sodium [Colace 100 mg Capsule] 100 mg PO BIDP PRN 10/05/18 Fluticasone Propionate [Flonase Nasal [place] 50 Mcg/[place] 16 gm] 1 spray NASL BID 10/05/18 Fluticasone/Salmeterol [Advair 500-50 Diskus 14 Dose/Diskus] 1 puff IH Q12 10/05/18 Furosemide [Lasix 20 mg Tablet] 10 mg PO DAILY 10/05/18 Guaifenesin/D-Methorphan Hb [Tussin Dm Liquid] 10 ml PO Q6HP PRN 10/05/18 Hydrochlorothiazide [Hydrodiuril 12.5 mg Tablet] 12.5 mg PO DAILY 10/05/18 Lorazepam [Ativan 0.5 mg Tablet] 0.25 mg PO Q12 10/05/18 Meloxicam [Mobic] 7.5 mg PO DAILY 10/05/18 Oxybutynin Chloride [Ditropan 5 mg Tablet] 5 mg PO DAILY 10/05/18 Polyethylene Glycol 3350 [Miralax Powder 17 gm/Packet] 17 gm PO DAILYP PRN 10/05/18 Prednisone [Deltasone 10 mg Tablet] 10 mg PO DAILY 10/05/18 Allergies/Adverse Reactions: No Known Allergies Allergy (Verified 10/05/18 12:28) Review of Systems Review of Systems: Communication with the patient is extremely difficult for me because of her loss of hearing acuity. I finally resort to writing communication/notes on a pad to communicate with her. As such review of systems is extremely limited. Physical Exam Vital Signs: Temp Pulse Resp BP Pulse Ox 36.7 C 85 15 176/79 H 92 10/12/18 07:35 10/12/18 07:35 10/12/18 07:35 10/12/18 07:35 10/12/18 07:35 Intake & Output 10/11/18 10/12/18 10/13/18 06:59 06:59 06:59 Intake Total 2860 810 1000 Output Total 1775 Balance 2860 -965 1000 Weight 34.7 kg 37.1 kg Physical Exam: Frail appearing elderly white female lying in a hospital bed. She is complaining of pain requesting pain medication. Its extremely difficult for me to communicate with her because of her loss of hearing. General appearance: PRESENT: no acute distress, mild distress, thin Head exam: PRESENT: normocephalic Respiratory exam: PRESENT: other - Patient with shortness of breath as she attempts to verbalize Cardiovascular exam: PRESENT: RRR Pulses: PRESENT: +1 pedal pulses bilateral Vascular exam: PRESENT: normal capillary refill GI/Abdominal exam: PRESENT: soft Rectal exam: PRESENT: deferred Extremities exam: PRESENT: other - Range of motion lower extremities results in pain leg lengths are equal. Neurological exam: PRESENT: alert, awake, oriented to place, oriented to time Psychiatric exam: PRESENT: agitated Results Laboratory Results: 10/12/18 05:53 10/12/18 05:53 10/12/18 10/12/18 05:53 05:53 WBC 10.4 RBC 3.66 L Hgb 8.3 L Hct 26.6 L MCV 73 L MCH 22.7 L MCHC 31.2 L RDW 21.7 H Plt Count 368 Sodium 136.8 L Potassium 4.9 Chloride 102 Carbon Dioxide 25 Anion Gap 10 BUN 21 H Creatinine 1.31 H Est GFR ( Amer) 48 L Est GFR (Non-Af Amer) 39 L Glucose 77 Calcium 10.1 10/05/18 10/05/18 13:30 13:30 Creatine Kinase 100 Troponin I < 0.012 Impressions: Hip X-Ray 10/05/18 12:35 IMPRESSION: Mild bilateral degenerative changes. No acute fracture or dislocation. Pelvis X-Ray 10/05/18 13:11 IMPRESSION: NEGATIVE STUDY OF THE RIGHT HIP. NO RADIOGRAPHIC EVIDENCE OF ACUTE INJURY. Chest X-Ray 10/05/18 18:08 IMPRESSION: Mild pulmonary edema without consolidation or pleural effusion. Pelvis CT 10/07/18 00:00 IMPRESSION: 1. Fracture of the left superior pubic ramus. 2. Extensive bone destruction involving the sacrum and the adjacent right ilium. Is there a known neoplasm? Consider biopsy. Abdomen/Pelvis CT 10/10/18 00:00 IMPRESSION: 1. No acute finding in the abdomen or pelvis. 2. Large lytic lesion in the sacrum and adjacent right ilium. There are subtle sclerotic lesions in the vertebral bodies concerning for metastases. 3. 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 4. Mild diverticulosis coli. Chest CT 10/10/18 00:00 IMPRESSION: Right lower lobe pneumonia. Mild dependent atelectasis in the left base. Small right pleural effusion. Status: Imported from PACS Assessment & Plan - Diagnosis (1) Bone metastases Is this a current diagnosis for this admission?: Yes Plan: 78-year-old white female with presumed lung carcinoma metastatic to the sacrum and possible pelvic instability because of the posterior metastasis in the anterior superior superior pubic ramus fracture. Discussed the situation with Dr. Romaine duarte and the tentative plan will be for a CT-guided biopsy for histologic confirmation of diagnosis and then external beam radiation therapy. Hopefully this will lead to a consolidation of the posterior fracture. I think the anterior fracture should heal uneventfully if there is stability. Surgical intervention would be difficult because of the extensive nature of the sacral lesion and probably involve transsacral bolts. I think that this can be left as a potential future option should the fracture not consolidate following radiati on therapy. - Time Time Spent: 50 to 70 Minutes Anticipated discharge: Other Within: Other
[2018-10-12] MEDS: PREDNISONE 10 MG TABLET PO SCH (09:26)
[2018-10-12] MEDS: HYDROCODONE/ACETAMINOPHEN 5-325 MG TABLET PO PRN ×2 (09:26→21:10)
[2018-10-12] MEDS: FERROUS SULFATE 325 MG TABLET PO SCH ×2 (09:26→19:05)
[2018-10-12] MEDS: OXYBUTYNIN CHLORIDE 5 MG TABLET PO SCH (09:27)
[2018-10-12] MEDS: NICOTINE 21 MG/24 HR PATCH.TD24 TD SCH (09:28)
[2018-10-12] MEDS ORDERED: NORMAL SALINE 1000 ML 1,000 ML IV PRN (09:37)
[2018-10-12] MEDS: LORAZEPAM 0.5 MG TABLET PO SCH ×2 (09:38→21:10)
--- NOTE | 2018-10-12 09:43 | PDOC PROGRESS REPORT ---
Subjective Progress Note for:: 10/12/18 Subjective:: None this a.m. October 12, 2018-none this a.m. Reason For Visit: IRON DEFICIENCY ANEMIA,ACUTE ON CHRONIC KIDNEY Physical Exam Vital Signs: Temp Pulse Resp BP Pulse Ox 98.0 F 85 15 176/79 H 92 10/12/18 07:35 10/12/18 07:35 10/12/18 07:35 10/12/18 07:35 10/12/18 07:35 Intake & Output 10/11/18 10/12/18 10/13/18 06:59 06:59 06:59 Intake Total 2860 810 1000 Output Total 1775 Balance 2860 -965 1000 Weight 34.7 kg 37.1 kg General appearance: PRESENT: no acute distress, well-developed, well-nourished Neck exam: ABSENT: carotid bruit, JVD, lymphadenopathy, thyromegaly Respiratory exam: PRESENT: clear to auscultation [place]. ABSENT: rales, rhonchi, wheezes Cardiovascular exam: PRESENT: RRR. ABSENT: diastolic murmur, rubs, systolic murmur Pulses: PRESENT: +1 pedal pulses bilateral Vascular exam: PRESENT: normal capillary refill GI/Abdominal exam: PRESENT: normal bowel sounds, soft. ABSENT: distended, guarding, mass, organolmegaly, rebound, tenderness Extremities exam: PRESENT: full ROM. ABSENT: calf tenderness, clubbing, pedal edema Neurological exam: PRESENT: alert, awake, oriented to person, oriented to place, oriented to time, oriented to situation Psychiatric exam: PRESENT: appropriate affect, normal mood. ABSENT: homicidal ideation, suicidal ideation Results Laboratory Results: 10/12/18 05:53 10/12/18 05:53 10/12/18 10/12/18 05:53 05:53 WBC 10.4 RBC 3.66 L Hgb 8.3 L Hct 26.6 L MCV 73 L MCH 22.7 L MCHC 31.2 L RDW 21.7 H Plt Count 368 Sodium 136.8 L Potassium 4.9 Chloride 102 Carbon Dioxide 25 Anion Gap 10 BUN 21 H Creatinine 1.31 H Est GFR ( Amer) 48 L Est GFR (Non-Af Amer) 39 L Glucose 77 Calcium 10.1 10/05/18 10/05/18 13:30 13:30 Creatine Kinase 100 Troponin I < 0.012 Impressions: Hip X-Ray 10/05/18 12:35 IMPRESSION: Mild bilateral degenerative changes. No acute fracture or dislocation. Pelvis X-Ray 10/05/18 13:11 IMPRESSION: NEGATIVE STUDY OF THE RIGHT HIP. NO RADIOGRAPHIC EVIDENCE OF ACUTE INJURY. Chest X-Ray 10/05/18 18:08 IMPRESSION: Mild pulmonary edema without consolidation or pleural effusion. Pelvis CT 10/07/18 00:00 IMPRESSION: 1. Fracture of the left superior pubic ramus. 2. Extensive bone destruction involving the sacrum and the adjacent right ilium. Is there a known neoplasm? Consider biopsy. Abdomen/Pelvis CT 10/10/18 00:00 IMPRESSION: 1. No acute finding in the abdomen or pelvis. 2. Large lytic lesion in the sacrum and adjacent right ilium. There are subtle sclerotic lesions in the vertebral bodies concerning for metastases. 3. 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 4. Mild diverticulosis coli. Chest CT 10/10/18 00:00 IMPRESSION: Right lower lobe pneumonia. Mild dependent atelectasis in the left base. Small right pleural effusion. Assessment and Plan - Diagnosis (1) Pelvic fracture Qualifiers: Encounter type: initial encounter Pelvic bone location: pubis Fracture type: closed Laterality: left Is this a current diagnosis for this admission?: Yes Plan: Continue pain medication and physical therapy. She she has not been able to ambulate without assistance presently. Will likely need short-term rehab. Discussed with her daughter Ernestine who lives in [place] as well. She is in agreement. October 11, 2018-continue current pain management therapy. This is nonoperable left superior ramus fracture. October 7018-stable at this time. (2) [id number] kidney injury Qualifiers: Acute renal failure type: unspecified Chronic kidney disease stage: stage 3 (moderate) Qualified Code(s): N17.9 - Acute kidney failure, unspecified; N18.3 - Chronic kidney disease, stage 3 (moderate) Is this a current diagnosis for this admission?: Yes Plan: Resolved with IV hydration and blood. We will continue to avoid nephrotoxic medications and dosages. October 11, 2018-resolved stable October 12, 2018-creatinine 1.3 this morning. I suspect this is mostly from slight dehydration as patient's eyes no show more out than in at this time will place patient on normal saline at 50 mL an hour for hydration we will repeat BMP in a.m. (3) Iron deficiency anemia Qualifiers: Iron deficiency anemia type: unspecified iron deficiency Qualified Code(s): D50.9 - Iron deficiency anemia, unspecified Is this a current diagnosis for this admission?: Yes Plan: She was transfused 2 units of packed red blood cells and given iron infusion. She is found to have iron deficiency anemia with iron level less than 10. She was started on oral iron therapy as well. Will give dose of IV iron today We will continue to monitor. Stool was guaiac negative. October 11, 2018-chronic stable continue iron supplements. October 12, 2018-continue iron supple mentation (4) Lytic lesion of bone on x-ray Is this a current diagnosis for this admission?: Yes Plan: October 11, 2018-pelvis CT shows lytic lesion of sacrum. At this time will consult Dr. Masters with oncology to see if there is any further recommendations. October 12, 2018-discussed with Dr. Hawley who is discussed with Dr. Crum. We will do a CT-guided biopsy of this lytic lesion and progress with radiation therapy for comfort measures. (5) Left hip pain Is this a current diagnosis for this admission?: Yes Plan: Will CT hip. She is still having complaints of severe pain in the left hip She is presently getting Tylenol and Ultram as needed. October 11, 2018-CT the hip showed no acute fracture. Continue Tylenol and Ultram as needed. October 12, 2018-continue PRN pain medications. (6) Hypertension Qualifiers: Hypertension type: essential hypertension Qualified Code(s): I10 - Essential (primary) hypertension Is this a current diagnosis for this admission?: Yes Plan: We will continue home medications she presently is now normotensive. October 11, 2018-stable. Continue home medications. October 12, 2018-mildly elevated this morning I suspect this is from pain. Patient was getting her pain medication as I walked in the room. Patient's only on tramadol at this time I may entertain the notion of place patient on a mild Vicodin if pain persist. (7) Protein-calorie malnutrition, moderate Is this a current diagnosis for this admission?: Yes Plan: Evidence by BMI of 18.6, poor skin turgor. Liberalize diet, nutritional supplements October-continue nutritional supplementation. October 12, 2018-continue nutritional supplementation - Time Time Spent with patient: 15-24 minutes - Inpatient Certification Based on my medical assessment, after consideration of the patient's comorbidities, presenting symptoms, or acuity I expect that the services needed warrant INPATIENT care.: Yes I certify that my determination is in accordance with my understanding of Medicare's requirements for reasonable and necessary INPATIENT services [42 CFR 412.3e].: Yes Medical Necessity: Other - CT-guided biopsy, pain control, IV fluids possible radiation therapy
[2018-10-12] MEDS ORDERED: MORPHINE SULFATE 10 MG/ML INJ IV PRN (09:49)
[2018-10-12 10:10] LABS: INTERNATIONAL RATION (INR) 1.08; PROTHROMBIN TIME 14.1 SEC (11.4-15.4)
[2018-10-12 10:11] LABS: PARTIAL THROMBOPLASTIN TIME 30.6 SEC (23.5-35.8)
[2018-10-12] MEDS ORDERED: MIDAZOLAM 2 MG/2 ML INJ ONE (14:33)
[2018-10-12] MEDS ORDERED: FENTANYL CITRATE INJ/PF 100 MCG/2 ML AMPUL ONE (14:33)
[2018-10-12] MEDS ORDERED: LIDOCAINE 1% INJ-PF (10 MG/ML) 30 ML SDV ONE (14:42)
--- NOTE | 2018-10-12 16:19 | RADIOLOGY REPORT (SQ) ---
EXAM DESCRIPTION: CT BIOPSY BONE DEEP COMPLETED DATE/TIME: 10/12/2018 4:09 pm REASON FOR STUDY: CT GUIDED BX OF R PELVIC LYTIC LESION COMPARISON: None. TECHNIQUE: CT guided biopsy of the right iliac lytic lesion performed with conscious sedation. CT Fluoroscopy Time: 16.[address] scanners at this facility use dose modulation, iterative reconstruction, and/or weight based d osing when appropriate to reduce radiation dose to as low as reasonably achievable (ALARA). [facility]: Dose Right [facility]: CareDose [facility]: Dose Right [facility]: Teradose 4D [facility]: Smart [employer] (STIE) RADIATION DOSE: CT Rad equipment meets quality standard of care and radiation dose reduction techni ques were employed. CTDIvol: 5.7 - 10.5 mGy. DLP: 257 mGy-cm.mGy. FINDINGS: After obtaining informed consent and explaining the risks and benefits of conscious sedati on,the patient agreed to the procedure. Prior to the procedure, a time out was performed to verify th e patient's identity and planned procedure. IV sedation was administered and physician direction by the registered nurse using 0.5 milligrams of Versed and 25 micrograms of fentanyl, for conscious sedation. Physiologic monitoring was provided bef ore, during, and after sedation. The total sedation time was 30 minutes. Documentation face to face time, the performing proceduralist, spent monitoring the patient: [address] scanning was performed to localize the percutaneous site for the biopsy approach. After sterile skin prep and local lidocaine for skin and deep tissue anesthesia, a coaxial biopsy nee dle was used to obtain multiple cores of tissue from the lytic lesion within the right ilium. The bi opsy tissue was submitted to the lab in formalin. There were no immediate complications. Pathology is pending at the time of dictation. IMPRESSION: CT GUIDED BIOPSY OF THE LYTIC LESION WITHIN THE RIGHT ILIUM PERFORMED WITHOUT IMMEDIATE COMPLICATION. PATHOLOGY PENDING. COMMENT: Quality ID [id number]: Final reports for procedures using fluoroscopy that document radiation exp osure indices, or exposure time and number of fluorographic images (if radiation exposure indices are not available) Patient medication list reviewed: Yes- Quality ID# [id number]:Eligible professional attests to documenting i n the medical record they obtained, updated, or reviewed the patient's current medications.. TECHNICAL DOCUMENTATION: JOB ID: [id number] Quality ID# [id number]: Final reports with documentation of one or more dose reduction techniques (e.g., Aut omated exposure control, adjustment of the mA and/or kV according to patient size, use of iterative r econstruction technique) 2010 [employer]- All Rights Reserved Reading location - IP/workstation name: [email or web address]
[2018-10-12] MEDS: DOCUSATE SODIUM 100 MG CAPSULE PO PRN (21:09)
[2018-10-12] MEDS: POLYETHYLENE GLYCOL 3350 POWDER 17 GM/1 PACKET PO PRN (21:10)
[2018-10-13] MEDS: ALBUTEROL SULFATE 0.083% NEB 2.5 MG/3 ML AMPUL NEB SCH ×3 (00:23→16:26)
[2018-10-13 04:44] LABS: HEMATOCRIT 25.6 % (36.0-47.0); HEMOGLOBIN 8.1 g/dL (12.0-15.5); MEAN CORPUSCULAR HEMOGLOBIN 22.9 pg (27.0-33.4); MEAN CORPUSCULAR HGB CONC 31.8 g/dL (32.0-36.0); MEAN CORPUSCULAR VOLUME 72 fl (80-97); PLATELET COUNT 364 10^3/uL (150-450); RED BLOOD COUNT 3.55 10^6/uL (3.72-5.28); RED CELL DISTRIBUTION WIDTH 21.4 % (11.5-14.0); WHITE BLOOD COUNT 9.4 10^3/uL (4.0-10.5)
[2018-10-13 05:04] LABS: ANION GAP 6 (5-19); BLOOD UREA NITROGEN 25 mg/dL (7-20); CALCIUM 9.8 mg/dL (8.4-10.2); CARBON DIOXIDE 25 mmol/L (22-30); CHLORIDE 105 mmol/L (98-107); GLUCOSE 71 mg/dL (75-110)
[2018-10-13] MEDS: HEPARIN SOD (PORCINE) 5,000 UNIT/ML 1 ML VIAL SUBCUT SCH ×3 (05:11→21:14)
[2018-10-13] MEDS: HYDROCODONE/ACETAMINOPHEN 5-325 MG TABLET PO PRN ×2 (06:16→14:29)
--- NOTE | 2018-10-13 07:21 | PDOC PROGRESS REPORT ---
Subjective Progress Note for:: 10/13/18 Subjective:: Patient opens eyes, but does not try to communicate. Nurses report that her pain has been well controlled and she has received laxatives last night for constipation. Reason For Visit: IRON DEFICIENCY ANEMIA,ACUTE ON CHRONIC KIDNEY Physical Exam Vital Signs: Temp Pulse Resp BP Pulse Ox 98.1 F 83 18 133/63 H 95 10/12/18 16:33 10/12/18 16:33 10/12/18 16:33 10/12/18 16:33 10/13/18 04:10 Intake & Output 10/12/18 10/13/18 10/14/18 06:59 06:59 06:59 Intake Total 810 1740 Output Total 1775 1400 Balance -965 340 Weight 37.1 kg 36.4 kg General appearance: PRESENT: no acute distress, thin, well-developed Exam: 78 year old female. Head exam: PRESENT: normocephalic Respiratory exam: PRESENT: clear to auscultation suman, unlabored Cardiovascular exam: PRESENT: RRR. ABSENT: systolic murmur GI/Abdominal exam: PRESENT: soft. ABSENT: tenderness Extremities exam: ABSENT: pedal edema Skin exam: PRESENT: normal color Results Laboratory Results: 10/13/18 04:00 10/13/18 04:00 10/13/18 10/13/18 04:00 04:00 WBC 9.4 RBC 3.55 L Hgb 8.1 L Hct 25.6 L MCV 72 L MCH 22.9 L MCHC 31.8 L RDW 21.4 H Plt Count 364 Sodium 136.4 L Potassium 5.0 Chloride 105 Carbon Dioxide 25 Anion Gap 6 BUN 25 H Creatinine 1.20 Est GFR ( Amer) 53 L Est GFR (Non-Af Amer) 44 L Glucose 71 L Calcium 9.8 10/05/18 10/05/18 13:30 13:30 Creatine Kinase 100 Troponin I < 0.012 Impressions: Hip X-Ray 10/05/18 12:35 IMPRESSION: Mild bilateral degenerative changes. No acute fracture or dislocation. Pelvis X-Ray 10/05/18 13:11 IMPRESSION: NEGATIVE STUDY OF THE RIGHT HIP. NO RADIOGRAPHIC EVIDENCE OF ACUTE INJURY. Chest X-Ray 10/05/18 18:08 IMPRESSION: Mild pulmonary edema without consolidation or pleural effusion. Pelvis CT 10/07/18 00:00 IMPRESSION: 1. Fracture of the left superior pubic ramus. 2. Extensive bone destruction involving the sacrum and the adjacent right ilium. Is there a known neoplasm? Consider biopsy. Abdomen/Pelvis CT 10/10/18 00:00 IMPRESSION: 1. No acute finding in the abdomen or pelvis. 2. Large lytic lesion in the sacrum and adjacent right ilium. There are subtle sclerotic lesions in the vertebral bodies concerning for metastases. 3. 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 4. Mild diverticulosis coli. Chest CT 10/10/18 00:00 IMPRESSION: Right lower lobe pneumonia. Mild dependent atelectasis in the left base. Small right pleural effusion. Bone Biopsy CT 10/12/18 09:24 IMPRESSION: CT GUIDED BIOPSY OF THE LYTIC LESION WITHIN THE RIGHT ILIUM PERFORMED WITHOUT IMMEDIATE COMPLICATION. PATHOLOGY PENDING. Assessment & Plan - Diagnosis (1) Brnkr-mh-ugiazcs kidney injury Qualifiers: Acute renal failure type: unspecified Chronic kidney disease stage: stage 3 (moderate) Qualified Code(s): N17.9 - Acute kidney failure, unspecified; N18.3 - Chronic kidney disease, stage 3 (moderate) Is this a current diagnosis for this admission?: Yes Plan: Cr now stable. (2) Lytic lesion of bone on x-ray Is this a current diagnosis for this admission?: Yes Plan: s/p Biopsy yesterday. Await pathology report. She may benefit from palliative radiation, based on these results. (3) Pelvic fracture Qualifiers: Encounter type: initial encounter Pelvic bone location: pubis Fracture type: closed Laterality: left Is this a current diagnosis for this admission?: Yes Plan: Continue pain control. It is not felt that she is a candidate for surgical intervention.
--- NOTE | 2018-10-13 09:12 | PDOC PROGRESS REPORT ---
Subjective Progress Note for:: 10/13/18 Subjective:: None this a.m. October 12, 2018-none this a.m. October 13, 2018-no complaints this a.m. Reason For Visit: IRON DEFICIENCY ANEMIA,ACUTE ON CHRONIC KIDNEY Physical Exam Vital Signs: Temp Pulse Resp BP Pulse Ox 98.2 F 100 16 160/66 H 91 L 10/13/18 07:36 10/13/18 08:16 10/13/18 08:16 10/13/18 07:36 10/13/18 08:16 Intake & Output 10/12/18 10/13/18 10/14/18 06:59 06:59 06:59 Intake Total 810 1740 Output Total 1775 1400 Balance -965 340 Weight 37.1 kg 36.4 kg General appearance: PRESENT: no acute distress, well-developed, well-nourished Ear exam: PRESENT: other - Extremely hard of hearing Neck exam: ABSENT: carotid bruit, JVD, lymphadenopathy, thyromegaly Respiratory exam: PRESENT: clear to auscultation suman. ABSENT: rales, rhonchi, wheezes Cardiovascular exam: PRESENT: RRR. ABSENT: diastolic murmur, rubs, systolic murmur Pulses: PRESENT: normal dorsalis pedis pul Vascular exam: PRESENT: normal capillary refill GI/Abdominal exam: PRESENT: normal bowel sounds, soft. ABSENT: distended, guarding, mass, organolmegaly, rebound, tenderness Extremities exam: PRESENT: full ROM. ABSENT: calf tenderness, clubbing, pedal edema Neurological exam: PRESENT: alert, awake, oriented to person, oriented to place, oriented to time, oriented to situation, CN II-XII grossly intact. ABSENT: motor sensory deficit Psychiatric exam: PRESENT: appropriate affect, normal mood. ABSENT: homicidal ideation, suicidal ideation Skin exam: PRESENT: dry, intact, warm. ABSENT: cyanosis, rash Results Laboratory Results: 10/13/18 04:00 10/13/18 04:00 10/13/18 10/13/18 04:00 04:00 WBC 9.4 RBC 3.55 L Hgb 8.1 L Hct 25.6 L MCV 72 L MCH 22.9 L MCHC 31.8 L RDW 21.4 H Plt Count 364 Sodium 136.4 L Potassium 5.0 Chloride 105 Carbon Dioxide 25 Anion Gap 6 BUN 25 H Creatinine 1.20 Est GFR ( Amer) 53 L Est GFR (Non-Af Amer) 44 L Glucose 71 L Calcium 9.8 10/05/18 10/05/18 13:30 13:30 Creatine Kinase 100 Troponin I < 0.012 Impressions: Hip X-Ray 10/05/18 12:35 IMPRESSION: Mild bilateral degenerative changes. No acute fracture or dislocation. Pelvis X-Ray 10/05/18 13:11 IMPRESSION: NEGATIVE STUDY OF THE RIGHT HIP. NO RADIOGRAPHIC EVIDENCE OF ACUTE INJURY. Chest X-Ray 10/05/18 18:08 IMPRESSION: Mild pulmonary edema without consolidation or pleural effusion. Pelvis CT 10/07/18 00:00 IMPRESSION: 1. Fracture of the left superior pubic ramus. 2. Extensive bone destruction involving the sacrum and the adjacent right ilium. Is there a known neoplasm? Consider biopsy. Abdomen/Pelvis CT 10/10/18 00:00 IMPRESSION: 1. No acute finding in the abdomen or pelvis. 2. Large lytic lesion in the sacrum and adjacent right ilium. There are subtle sclerotic lesions in the vertebral bodies concerning for metastases. 3. 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 4. Mild diverticulosis coli. Chest CT 10/10/18 00:00 IMPRESSION: Right lower lobe pneumonia. Mild dependent atelectasis in the left base. Small right pleural effusion. Bone Biopsy CT 10/12/18 09:24 IMPRESSION: CT GUIDED BIOPSY OF THE LYTIC LESION WITHIN THE RIGHT ILIUM PERFORMED WITHOUT IMMEDIATE COMPLICATION. PATHOLOGY PENDING. Assessment and Plan - Diagnosis (1) Pelvic fracture Qualifiers: Encounter type: initial encounter Pelvic bone location: pubis Fracture type: closed Laterality: left Is this a current diagnosis for this admission?: Yes Plan: Continue pain medication and physical therapy. She she has not been able to ambulate without assistance presently. Will likely need short-term rehab. Discussed with her daughter Ernestine who lives in [place] as well. She is in agreement. October 11, 2018-continue current pain management therapy. This is nonoperable left superior ramus fracture. October 12, 2018-stable at this time. October 13, 2018-stable at this time nonoperative (2) Gcbzo-dk-dxyycar kidney injury Qualifiers: Acute renal failure type: unspecified Chronic kidney disease stage: stage 3 (moderate) Qualified Code(s): N17.9 - Acute kidney failure, unspecified; N18.3 - Chronic kidney disease, stage 3 (moderate) Is this a current diagnosis for this admission?: Yes Plan: Resolved with IV hydration and blood. We will continue to avoid nephrotoxic medications and dosages. October 11, 2018-resolved stable October 12, 2018-creatinine 1.3 this morning. I suspect this is mostly from slight dehydration as patient's eyes no show more out than in at this time will place patient on normal saline at 50 mL an hour for hydration we will repeat BMP in a.m. October 13, 2018-resolved (3) Iron deficiency anemia Qualifiers: Iron deficiency anemia type: unspecified iron deficiency Qualified Code(s): D50.9 - Iron deficiency anemia, unspecified Is this a current diagnosis for this admission?: Yes Plan: She was transfused 2 units of packed red blood cells and given iron infusion. She is found to have iron deficiency anemia with iron level less than 10. She was started on oral iron therapy as well. Will give dose of IV iron today We will continue to monitor. Stool was guaiac negative. October 11, 2018-chronic stable continue iron supplements. October 12, 2018-continue iron supple mentation October 13, 2018-continue iron supplementation (4) Lytic lesion of bone on x-ray Is this a current diagnosis for this admission?: Yes Plan: October 11, 2018-pelvis CT shows lytic lesion of sacrum. At this time will consult Dr. Masters with oncology to see if there is any further recommendations. October 12, 2018-discussed with Dr. Hawley who is discussed with Dr. Crum. We will do a CT-guided biopsy of this lytic lesion and progress with radiation the rapy for comfort measures. October 13, 2018-biopsy obtained. Awaiting results. At that time patient most likely will benefit from palliative radiation. I discussed this with Dr. Subramanian this a.m. (5) Left hip pain Is this a current diagnosis for this admission?: Yes Plan: Will CT hip. She is still having complaints of severe pain in the left hip She is presently getting Tylenol and Ultram as needed. October 11, 2018-CT the hip showed no acute fracture. Continue Tylenol and Ultram as needed. October 12, 2018-continue PRN pain medications. October 13, 2018-improved continue PRN pain medications (6) Hypertension Qualifiers: Hypertension type: essential hypertension Qualified Code(s): I10 - Essential (primary) hypertension Is this a current diagnosis for this admission?: Yes Plan: We will continue home medications she presently is now normotensive. October 11, 2018-stable. Continue home medications. October 12, 2018-mildly elevated this morning I suspect this is from pain. Patient was getting her pain medication as I walked in the room. Patient's only on tramadol at this time I may entertain the notion of place patient on a mild Vicodin if pain persist. October 13, 2018-patient remains mildly elevated with systolic blood pressure. At this time will initiate Norvasc 5 mill grams p.o. daily will titrate patient effect. (7) Protein-calorie malnutrition, moderate Is this a current diagnosis for this admission?: Yes Plan: Evidence by BMI of 18.6, poor skin turgor. Liberalize diet, nutritional supplements October-continue nutritional supplementation. October 12, 2018-continue nutritional supplementation October 13, 2018-continue nutritional supplementation - Time Time Spent with patient: 15-24 minutes - Inpatient Certification Based on my medical assessment, after consideration of the patient's comorbidities, presenting symptoms, or acuity I expect that the services needed warrant INPATIENT care.: Yes I certify that my determination is in accordance with my understanding of Medicare's requirements for reasonable and necessary INPATIENT services [42 CFR 412.3e].: Yes Medical Necessity: Other - Pain control, await biopsy report, palliative radiation
[2018-10-13] MEDS: LEVOFLOXACIN 750 MG/D5W RTU 750 MG/150 ML RTUPB IV SCH (10:46)
[2018-10-13] MEDS: SODIUM CHLORIDE NASAL SPRAY 44 ML NASL SCH ×4 (10:50→21:15)
[2018-10-13] MEDS: NICOTINE 21 MG/24 HR PATCH.TD24 TD SCH (10:51)
[2018-10-13] MEDS: FLUTICASONE/VILANTEROL 200-25 MCG/DOSE IH SCH (10:51)
[2018-10-13] MEDS: LOSARTAN POTASSIUM 50 MG TABLET PO SCH (10:53)
[2018-10-13] MEDS: LORAZEPAM 0.5 MG TABLET PO SCH ×2 (10:53→21:13)
[2018-10-13] MEDS: FERROUS SULFATE 325 MG TABLET PO SCH ×2 (10:53→18:49)
[2018-10-13] MEDS: AMLODIPINE BESYLATE 5 MG TABLET PO SCH (10:54)
[2018-10-13] MEDS: PREDNISONE 10 MG TABLET PO SCH (10:54)
[2018-10-13] MEDS: OXYBUTYNIN CHLORIDE 5 MG TABLET PO SCH (10:55)
[2018-10-13 15:36] LABS: FREE KAPPA LIGHT CHAINS 54.9 mg/L (3.3-19.4); FREE LAMBDA LIGHT CHAINS 58.8 mg/L (5.7-26.3)
[2018-10-13 18:35] LABS: KAPPA LAMBDA RATIO 0.93 (0.26-1.65)
[2018-10-13] MEDS: DOCUSATE SODIUM 100 MG CAPSULE PO PRN (21:13)
[2018-10-13] MEDS: POLYETHYLENE GLYCOL 3350 POWDER 17 GM/1 PACKET PO PRN (21:13)
[2018-10-14] MEDS: ALBUTEROL SULFATE 0.083% NEB 2.5 MG/3 ML AMPUL NEB SCH ×3 (00:04→16:03)
[2018-10-14] MEDS: HYDROCODONE/ACETAMINOPHEN 5-325 MG TABLET PO PRN ×4 (00:34→22:59)
[2018-10-14] MEDS: HEPARIN SOD (PORCINE) 5,000 UNIT/ML 1 ML VIAL SUBCUT SCH ×3 (05:06→22:58)
[2018-10-14 05:08] LABS: ANION GAP 8 (5-19); BLOOD UREA NITROGEN 23 mg/dL (7-20); CALCIUM 10.1 mg/dL (8.4-10.2); CARBON DIOXIDE 26 mmol/L (22-30); CHLORIDE 102 mmol/L (98-107); GLUCOSE 75 mg/dL (75-110)
--- NOTE | 2018-10-14 08:20 | PDOC PROGRESS REPORT ---
Subjective Progress Note for:: 10/14/18 Subjective:: Patient actually got up and walked with physical therapy. Reason For Visit: IRON DEFICIENCY ANEMIA,ACUTE ON CHRONIC KIDNEY Physical Exam Vital Signs: Temp Pulse Resp BP Pulse Ox 98.3 F 75 20 147/66 H 97 10/14/18 07:49 10/14/18 07:49 10/14/18 07:49 10/14/18 07:49 10/14/18 07:49 Intake & Output 10/13/18 10/14/18 10/15/18 06:59 06:59 06:59 Intake Total 1740 2250 Output Total 1400 2200 Balance 340 50 Weight 36.4 kg 36.8 kg General appearance: PRESENT: no acute distress, well-developed, well-nourished Head exam: PRESENT: atraumatic, normocephalic Eye exam: PRESENT: conjunctiva pink, EOMI, PERRLA. ABSENT: scleral icterus Ear exam: PRESENT: normal external ear exam Mouth exam: PRESENT: moist, tongue midline Neck exam: ABSENT: carotid bruit, JVD, lymphadenopathy, thyromegaly Respiratory exam: PRESENT: clear to auscultation suman. ABSENT: rales, rhonchi, wheezes Cardiovascular exam: PRESENT: RRR. ABSENT: diastolic murmur, rubs, systolic murmur Pulses: PRESENT: normal dorsalis pedis pul Vascular exam: PRESENT: normal capillary refill GI/Abdominal exam: PRESENT: normal bowel sounds, soft. ABSENT: distended, guarding, mass, organolmegaly, rebound, tenderness Rectal exam: PRESENT: deferred Extremities exam: PRESENT: full ROM. ABSENT: calf tenderness, clubbing, pedal edema Neurological exam: PRESENT: alert, awake, oriented to person, oriented to place, oriented to time, oriented to situation, CN II-XII grossly intact. ABSENT: motor sensory deficit Psychiatric exam: PRESENT: appropriate affect, normal mood. ABSENT: homicidal ideation, suicidal ideation Skin exam: PRESENT: dry, intact, warm. ABSENT: cyanosis, rash Results Laboratory Results: 10/13/18 04:00 10/14/18 03:44 10/14/18 03:44 Sodium 136.2 L Potassium 5.0 Chloride 102 Carbon Dioxide 26 Anion Gap 8 BUN 23 H Creatinine 1.13 Est GFR ( Amer) 57 L Est GFR (Non-Af Amer) 47 L Glucose 75 Calcium 10.1 10/05/18 10/05/18 13:30 13:30 Creatine Kinase 100 Troponin I < 0.012 Impressions: Hip X-Ray 10/05/18 12:35 IMPRESSION: Mild bilateral degenerative changes. No acute fracture or dislocation. Pelvis X-Ray 10/05/18 13:11 IMPRESSION: NEGATIVE STUDY OF THE RIGHT HIP. NO RADIOGRAPHIC EVIDENCE OF ACUTE INJURY. Chest X-Ray 10/05/18 18:08 IMPRESSION: Mild pulmonary edema without consolidation or pleural effusion. Pelvis CT 10/07/18 00:00 IMPRESSION: 1. Fracture of the left superior pubic ramus. 2. Extensive bone destruction involving the sacrum and the adjacent right ilium. Is there a known neoplasm? Consider biopsy. Abdomen/Pelvis CT 10/10/18 00:00 IMPRESSION: 1. No acute finding in the abdomen or pelvis. 2. Large lytic lesion in the sacrum and adjacent right ilium. There are subtle sclerotic lesions in the vertebral bodies concerning for metastases. 3. 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 4. Mild diverticulosis coli. Chest CT 10/10/18 00:00 IMPRESSION: Right lower lobe pneumonia. Mild dependent atelectasis in the left base. Small right pleural effusion. Bone Biopsy CT 10/12/18 09:24 IMPRESSION: CT GUIDED BIOPSY OF THE LYTIC LESION WITHIN THE RIGHT ILIUM PERFORMED WITHOUT IMMEDIATE COMPLICATION. PATHOLOGY PENDING. Assessment & Plan - Diagnosis (1) Bone metastases Is this a current diagnosis for this admission?: Yes Plan: Radiation oncology consultation placed, asked nursing to make sure that gets done today, awaiting biopsy results. I think patient can start radiation even before biopsy results come back. But that will be up to radiation oncology. Myeloma work-up so far is negative, both kappa and lambda light chains are elevated and the ratio is normal, awaiting SPEP but most likely there is not going to be a monoclonal protein. (2) Mass of right lung Is this a current diagnosis for this admission?: Yes Plan: Likely to be lung cancer with metastasis to bone but await biopsy results to ensure that.
[2018-10-14] MEDS: SODIUM CHLORIDE NASAL SPRAY 44 ML NASL SCH ×4 (08:31→22:59)
--- NOTE | 2018-10-14 08:46 | PDOC PROGRESS REPORT ---
Subjective Progress Note for:: 10/14/18 Subjective:: None this a.m. October 12, 2018-none this a.m. October 13, 2018-no complaints this a.m. October 14, 2018-increased pain this a.m. Reason For Visit: IRON DEFICIENCY ANEMIA,ACUTE ON CHRONIC KIDNEY Physical Exam Vital Signs: Temp Pulse Resp BP Pulse Ox 98.3 F 75 20 147/66 H 97 10/14/18 07:49 10/14/18 07:49 10/14/18 07:49 10/14/18 07:49 10/14/18 07:49 Intake & Output 10/13/18 10/14/18 10/15/18 06:59 06:59 06:59 Intake Total 1740 2250 Output Total 1400 2200 Balance 340 50 Weight 36.4 kg 36.8 kg General appearance: PRESENT: no acute distress, well-developed, well-nourished Neck exam: ABSENT: carotid bruit, JVD, lymphadenopathy, thyromegaly Respiratory exam: PRESENT: clear to auscultation suman. ABSENT: rales, rhonchi, wheezes Cardiovascular exam: PRESENT: RRR. ABSENT: diastolic murmur, rubs, systolic murmur Pulses: PRESENT: normal dorsalis pedis pul Vascular exam: PRESENT: normal capillary refill GI/Abdominal exam: PRESENT: normal bowel sounds, soft. ABSENT: distended, guarding, mass, organolmegaly, rebound, tenderness Extremities exam: PRESENT: full ROM. ABSENT: calf tenderness, clubbing, pedal edema Neurological exam: PRESENT: alert, awake, oriented to person, oriented to place, oriented to time, oriented to situation, CN II-XII grossly intact, other - Extremely hard of hearing. ABSENT: motor sensory deficit Psychiatric exam: PRESENT: appropriate affect, normal mood. ABSENT: homicidal ideation, suicidal ideation Results Laboratory Results: 10/13/18 04:00 10/14/18 03:44 10/14/18 03:44 Sodium 136.2 L Potassium 5.0 Chloride 102 Carbon Dioxide 26 Anion Gap 8 BUN 23 H Creatinine 1.13 Est GFR ( Amer) 57 L Est GFR (Non-Af Amer) 47 L Glucose 75 Calcium 10.1 10/05/18 10/05/18 13:30 13:30 Creatine Kinase 100 Troponin I < 0.012 Impressions: Hip X-Ray 10/05/18 12:35 IMPRESSION: Mild bilateral degenerative changes. No acute fracture or dislocation. Pelvis X-Ray 10/05/18 13:11 IMPRESSION: NEGATIVE STUDY OF THE RIGHT HIP. NO RADIOGRAPHIC EVIDENCE OF ACUTE INJURY. Chest X-Ray 10/05/18 18:08 IMPRESSION: Mild pulmonary edema without consolidation or pleural effusion. Pelvis CT 10/07/18 00:00 IMPRESSION: 1. Fracture of the left superior pubic ramus. 2. Extensive bone destruction involving the sacrum and the adjacent right ilium. Is there a known neoplasm? Consider biopsy. Abdomen/Pelvis CT 10/10/18 00:00 IMPRESSION: 1. No acute finding in the abdomen or pelvis. 2. Large lytic lesion in the sacrum and adjacent right ilium. There are subtle sclerotic lesions in the vertebral bodies concerning for metastases. 3. 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 4. Mild diverticulosis coli. Chest CT 10/10/18 00:00 IMPRESSION: Right lower lobe pneumonia. Mild dependent atelectasis in the left base. Small right pleural effusion. Bone Biopsy CT 10/12/18 09:24 IMPRESSION: CT GUIDED BIOPSY OF THE LYTIC LESION WITHIN THE RIGHT ILIUM PERFORMED WITHOUT IMMEDIATE COMPLICATION. PATHOLOGY PENDING. Assessment and Plan - Diagnosis (1) Pelvic fracture Qualifiers: Encounter type: initial encounter Pelvic bone location: pubis Fracture type: closed Laterality: left Is this a current diagnosis for this admission?: Yes Plan: Continue pain medication and physical therapy. She she has not been able to ambulate without assistance presently. Will likely need short-term rehab. Discussed with her daughter Ernestine who lives in [place] as well. She is in agreement. October 11, 2018-continue current pain management therapy. This is nonoperable left superior ramus fracture. October 12, 2018-stable at this time. October 13, 2018-stable at this time nonoperative October 14, 2018-stable, patient was able to ambulate with physical therapy to the door and back yesterday (2) Sqwqs-lf-lgllaid kidney injury Qualifiers: Acute renal failure type: unspecified Chronic kidney disease stage: stage 3 (moderate) Qualified Code(s): N17.9 - Acute kidney failure, unspecified; N18.3 - Chronic kidney disease, stage 3 (moderate) Is this a current diagnosis for this admission?: Yes Plan: Resolved with IV hydration and blood. We will continue to avoid nephrotoxic medications and dosages. October 11, 2018-resolved stable October 12, 2018-creatinine 1.3 this morning. I suspect this is mostly from sligh t dehydration as patient's eyes no show more out than in at this time will place patient on normal saline at 50 mL an hour for hydration we will repeat BMP in a.m. October 13, 2018-resolved October 14, 2018-resolved (3) Iron deficiency anemia Qualifiers: Iron deficiency anemia type: unspecified iron deficiency Qualified Code(s): D50.9 - Iron deficiency anemia, unspecified Is this a current diagnosis for this admission?: Yes (4) Lytic lesion of bone on x-ray Is this a current diagnosis for this admission?: Yes Plan: October 11, 2018-pelvis CT shows lytic lesion of sacrum. At this time will consult Dr. Masters with oncology to see if there is any further recommendations. October 12, 2018-discussed with Dr. Hawley who is discussed with Dr. Crum. We will do a CT-guided biopsy of this lytic lesion and progress with radiation therapy for comfort measures. October 13, 2018-biopsy obtained. Awaiting results. At that time patient most likely will benefit from palliative radiation. I discussed this with Dr. Subramanian this a.m. October 14, 2018-biopsy obtained. Radiation oncology consulted for palliative radiation. Will await the recommendations (5) Left hip pain Is this a current diagnosis for this admission?: Yes Plan: Will CT hip. She is still having complaints of severe pain in the left hip She is presently getting Tylenol and Ultram as needed. October 11, 2018-CT the hip showed no acute fracture. Continue Tylenol and Ultram as needed. October 12, 2018-continue PRN pain medications. October 13, 2018-improved continue PRN pain medications October 14, 2018-continue PRN pain medications (6) Hypertension Qualifiers: Hypertension type: essential hypertension Qualified Code(s): I10 - Essential (primary) hypertension Is this a current diagnosis for this admission?: Yes Plan: We will continue home medications she presently is now normotensive. October 11, 2018-stable. Continue home medications. October 12, 2018-mildly elevated this morning I suspect this is from pain. Patient was getting her pain medication as I walked in the room. Patient's only on tramadol at this time I may entertain the notion of place patient on a mild Vicodin if pain persist. October 13, 2018-patient remains mildly elevated with systolic blood pressure. At this time will initiate Norvasc 5 mill grams p.o. daily will titrate patient effect. October 14, 2018-stable (7) Protein-calorie malnutrition, moderate Is this a current diagnosis for this admission?: Yes Plan: Evidence by BMI of 18.6, poor skin turgor. Liberalize diet, nutritional supplements October-continue nutritional supplementation. October 12, 2018-continue nutritional supplementation October 13, 2018-continue nutritional supplementation October 14, 2018-continue nutritional supplementation - Time Time Spent with patient: 15-24 minutes - Inpatient Certification Based on my medical assessment, after consideration of the patient's comorbidities, presenting symptoms, or acuity I expect that the services needed warrant INPATIENT care.: Yes I certify that my determination is in accordance with my understanding of Medicare's requirements for reasonable and necessary INPATIENT services [42 CFR 412.3e].: Yes Medical Necessity: Other - Radiation oncology palliative measures
[2018-10-14] MEDS: FERROUS SULFATE 325 MG TABLET PO SCH ×2 (10:38→17:05)
[2018-10-14] MEDS: LOSARTAN POTASSIUM 50 MG TABLET PO SCH (10:38)
[2018-10-14] MEDS: AMLODIPINE BESYLATE 5 MG TABLET PO SCH (10:38)
[2018-10-14] MEDS: NICOTINE 21 MG/24 HR PATCH.TD24 TD SCH (10:39)
[2018-10-14] MEDS: LORAZEPAM 0.5 MG TABLET PO SCH ×2 (10:39→22:59)
[2018-10-14] MEDS: PREDNISONE 10 MG TABLET PO SCH (10:39)
[2018-10-14] MEDS: OXYBUTYNIN CHLORIDE 5 MG TABLET PO SCH (10:39)
[2018-10-14] MEDS: FLUTICASONE/VILANTEROL 200-25 MCG/DOSE IH SCH (10:43)
[2018-10-14 14:37] LABS: A/G RATIO. 0.8 (0.7-1.7); ALBUMIN 3 2.6 g/dL (2.9-4.4); ALPHA-1-GLOBULIN 0.4 g/dL (0.0-0.4); BETA GLOBULIN 1.1 g/dL (0.7-1.3); GAMMA GLOBULINS 0.7 g/dL (0.4-1.8); IMMUNOGLOBULIN A 505 mg/dL (64-422); IMMUNOGLOBULIN G 705 mg/dL (700-1600); IMMUNOGLOBULIN M 140 mg/dL (26-217); MONOCLONAL-SPIKE Not Observed g/dL (Not Observ)
[2018-10-15] MEDS: ALBUTEROL SULFATE 0.083% NEB 2.5 MG/3 ML AMPUL NEB SCH ×3 (00:52→16:31)
[2018-10-15] MEDS: HYDROCODONE/ACETAMINOPHEN 5-325 MG TABLET PO PRN ×2 (05:33→22:32)
[2018-10-15] MEDS: HEPARIN SOD (PORCINE) 5,000 UNIT/ML 1 ML VIAL SUBCUT SCH ×3 (05:34→22:35)
[2018-10-15 05:48] LABS: HEMATOCRIT 26.3 % (36.0-47.0); HEMOGLOBIN 8.4 g/dL (12.0-15.5); MEAN CORPUSCULAR HEMOGLOBIN 23.1 pg (27.0-33.4); MEAN CORPUSCULAR VOLUME 72 fl (80-97); PLATELET COUNT 409 10^3/uL (150-450); RED BLOOD COUNT 3.65 10^6/uL (3.72-5.28); WHITE BLOOD COUNT 8.4 10^3/uL (4.0-10.5)
[2018-10-15 06:07] LABS: ANION GAP 6 (5-19); BLOOD UREA NITROGEN 24 mg/dL (7-20); CALCIUM 10.3 mg/dL (8.4-10.2); CARBON DIOXIDE 30 mmol/L (22-30); CHLORIDE 100 mmol/L (98-107); GLUCOSE 71 mg/dL (75-110); POTASSIUM 4.8 mmol/L (3.6-5.0)
[2018-10-15] MEDS: SODIUM CHLORIDE NASAL SPRAY 44 ML NASL SCH ×4 (08:40→22:38)
[2018-10-15] MEDS: ACETAMINOPHEN 325 MG TABLET PO PRN ×2 (08:42→18:35)
[2018-10-15] MEDS: FERROUS SULFATE 325 MG TABLET PO SCH ×2 (08:42→18:02)
--- NOTE | 2018-10-15 09:30 | PDOC PROGRESS REPORT ---
Subjective Progress Note for:: 10/15/18 Subjective:: None this a.m. October 12, 2018-none this a.m. October 13, 2018-no complaints this a.m. October 14, 2018-increased pain this a.m. October 15, 2018-continued pain Reason For Visit: IRON DEFICIENCY ANEMIA,ACUTE ON CHRONIC KIDNEY Physical Exam Vital Signs: Temp Pulse Resp BP Pulse Ox 98.1 F 75 16 173/73 H 100 10/15/18 07:36 10/15/18 07:36 10/15/18 07:36 10/15/18 07:36 10/15/18 07:36 Intake & Output 10/14/18 10/15/18 10/16/18 06:59 06:59 06:59 Intake Total 2250 1420 Output Total 2200 2320 Balance 50 -900 Weight 36.8 kg 36.8 kg General appearance: PRESENT: no acute distress, well-developed, well-nourished Neck exam: ABSENT: carotid bruit, JVD, lymphadenopathy, thyromegaly Respiratory exam: PRESENT: clear to auscultation suman, decreased breath sounds. ABSENT: rales, rhonchi, wheezes Cardiovascular exam: PRESENT: RRR. ABSENT: diastolic murmur, rubs, systolic murmur Pulses: PRESENT: +1 pedal pulses bilateral Vascular exam: PRESENT: normal capillary refill GI/Abdominal exam: PRESENT: normal bowel sounds, soft. ABSENT: distended, guarding, mass, organolmegaly, rebound, tenderness Extremities exam: ABSENT: calf tenderness, clubbing, pedal edema Neurological exam: PRESENT: alert, awake, oriented to person, oriented to place, oriented to time, oriented to situation, CN II-XII grossly intact, other - Extremely hard of hearing. ABSENT: motor sensory deficit Psychiatric exam: PRESENT: appropriate affect, normal mood. ABSENT: homicidal ideation, suicidal ideation Results Laboratory Results: 10/15/18 05:08 10/15/18 05:08 10/12/18 10/15/18 10/15/18 09:39 05:08 05:08 WBC 8.4 RBC 3.65 L Hgb 8.4 L Hct 26.3 L MCV 72 L MCH 23.1 L MCHC 32.0 RDW 21.0 H Plt Count 409 Sodium 136.4 L Potassium 4.8 Chloride 100 Carbon Dioxide 30 Anion Gap 6 BUN 24 H Creatinine 1.10 Est GFR ( Amer) 58 L Est GFR (Non-Af Amer) 48 L Glucose 71 L Calcium 10.3 H Total Protein 6.0 Albumin 2.6 L 10/05/18 10/05/18 13:30 13:30 Creatine Kinase 100 Troponin I < 0.012 Impressions: Hip X-Ray 10/05/18 12:35 IMPRESSION: Mild bilateral degenerative changes. No acute fracture or dislocation. Pelvis X-Ray 10/05/18 13:11 IMPRESSION: NEGATIVE STUDY OF THE RIGHT HIP. NO RADIOGRAPHIC EVIDENCE OF ACUTE INJURY. Chest X-Ray 10/05/18 18:08 IMPRESSION: Mild pulmonary edema without consolidation or pleural effusion. Pelvis CT 10/07/18 00:00 IMPRESSION: 1. Fracture of the left superior pubic ramus. 2. Extensive bone destruction involving the sacrum and the adjacent right robbin um. Is there a known neoplasm? Consider biopsy. Abdomen/Pelvis CT 10/10/18 00:00 IMPRESSION: 1. No acute finding in the abdomen or pelvis. 2. Large lytic lesion in the sacrum and adjacent right ilium. There are subtle sclerotic lesions in the vertebral bodies concerning for metastases. 3. 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 4. Mild diverticulosis coli. Chest CT 10/10/18 00:00 IMPRESSION: Right lower lobe pneumonia. Mild dependent atelectasis in the left base. Small right pleural effusion. Bone Biopsy CT 10/12/18 09:24 IMPRESSION: CT GUIDED BIOPSY OF THE LYTIC LESION WITHIN THE RIGHT ILIUM PERFORMED WITHOUT IMMEDIATE COMPLICATION. PATHOLOGY PENDING. Assessment and Plan - Diagnosis (1) Pelvic fracture Qualifiers: Encounter type: initial encounter Pelvic bone location: pubis Fracture type: closed Laterality: left Is this a current diagnosis for this admission?: Yes Plan: Continue pain medication and physical therapy. She she has not been able to ambulate without assistance presently. Will likely need short-term rehab. Discussed with her daughter Ernestine who lives in [place] as well. She is in agreement. October 11, 2018-continue current pain management therapy. This is nonoperable left superior ramus fracture. October 12, 2018-stable at this time. October 13, 2018-stable at this time nonoperative October 14, 2018-stable, patient was able to ambulate with physical therapy to the door and back yesterday October 15, 2018-pain continues in his pelvis. I discussed with hematology oncology and will place patient on fentanyl patch 12 mics every 72 hours. Will follow make adjustments to pain management as needed. (2) Xooyk-bp-cgoyyje kidney injury Qualifiers: Acute renal failure type: unspecified Chronic kidney disease stage: stage 3 (moderate) Qualified Code(s): N17.9 - Acute kidney failure, unspecified; N18.3 - Chronic kidney disease, stage 3 (moderate) Is this a current diagnosis for this admission?: Yes Plan: Resolved with IV hydration and blood. We will continue to avoid nephrotoxic medications and dosages. October 11, 2018-resolved stable October 12, 2018-creatinine 1.3 this morning. I suspect this is mostly from slight dehydration as patient's eyes no show more out than in at this time will place patient on normal saline at 50 mL an hour for hydration we will repeat BMP in a.m. October 13, 2018-resolved October 14, 2018-resolved October 15, 2018-resolved DC daily BMPs (3) Iron deficiency anemia Qualifiers: Iron deficiency anemia type: unspecified iron deficiency Qualified Code(s): D50.9 - Iron deficiency anemia, unspecified Is this a current diagnosis for this admission?: Yes Plan: She was transfused 2 units of packed red blood cells and given iron infusion. She is found to have iron deficiency anemia with iron level less than 10. She was started on oral iron therapy as well. Will give dose of IV iron today We will continue to monitor. Stool was guaiac negative. October 11, 2018-chronic stable continue iron supplements. October 12, 2018-continue iron supple mentation October 13, 2018-continue iron supplementation October 15, 2018 continue on iron supplementation (4) Lytic lesion of bone on x-ray Is this a current diagnosis for this admission?: Yes Plan: October 11, 2018-pelvis CT shows lytic lesion of sacrum. At this time will consult Dr. Masters with oncology to see if there is any further recommendations. October 12, 2018-discussed with Dr. Hawley who is discussed with Dr. Crum. We will do a CT-guided biopsy of this lytic lesion and progress with radiation therapy for comfort measures. October 13, 2018-biopsy obtained. Awaiting results. At that time patient most likely will benefit from palliative radiation. I discussed this with Dr. Subramanian this a.m. October 14, 2018-biopsy obtained. Radiation oncology consulted for palliative radiation. Will await the recommendations October 15, 2018-patient seen by radiation oncology. Radiation therapy will start Wednesday (5) Left hip pain Is this a current diagnosis for this admission?: Yes Plan: Will CT hip. She is still having complaints of severe pain in the left hip She is presently getting Tylenol and Ultram as needed. October 11, 2018-CT the hip showed no acute fracture. Continue Tylenol and Ultram as needed. October 12, 2018-continue PRN pain medications. October 13, 2018-improved continue PRN pain medications October 14, 2018-continue PRN pain medications October 15, 2018-continue PRN pain medications add fentanyl 12 mics topical every 72 hours (6) Hypertension Qualifiers: Hypertension type: essential hypertension Qualified Code(s): I10 - Essential (primary) hypertension Is this a current diagnosis for this admission?: Yes Plan: We will continue home medications she presently is now normotensive. October 11, 2018-stable. Continue home medications. October 12, 2018-mildly elevated this morning I suspect this is from pain. Patient was getting her pain medication as I walked in the room. Patient's only on tramadol at this time I may entertain the notion of place patient on a mild Vicodin if pain persist. October 13, 2018-patient remains mildly elevated with systolic blood pressure. At this time will initiate Norvasc 5 mill grams p.o. daily will titrate patient effect. October 14, 2018-stable October 15, 2018-increase this morning but I suspect this is from pain. We will add fentanyl patch continue to follow (7) Protein-calorie malnutrition, moderate Is this a current diagnosis for this admission?: Yes Plan: Evidence by BMI of 18.6, poor skin turgor. Liberalize diet, nutritional supplements October-continue nutritional supplementation. October 12, 2018-continue nutritional supplementation October 13, 2018-continue nutritional supplementation October 14, 2018-continue nutritional supplementation October 15, 2018-continue nutritional support - Time Time Spent with patient: 15-24 minutes - Inpatient Certification Based on my medical assessment, after consideration of the patient's co morbidities, presenting symptoms, or acuity I expect that the services needed warrant INPATIENT care.: Yes I certify that my determination is in accordance with my understanding of Medicare's requirements for reasonable and necessary INPATIENT services [42 CFR 412.3e].: Yes Medical Necessity: Other - Pain control, radiation therapy
[2018-10-15] MEDS ORDERED: FENTANYL 12 MCG/HR PATCH.TD72 TD SCH (10:00)
--- NOTE | 2018-10-15 10:22 | PDOC PROGRESS REPORT ---
Subjective Progress Note for:: 10/15/18 Subjective:: Radiation therapy planned to start on Wednesday, patient seems to be doing well today. Hospitalist team is placed low-dose fentanyl patch so this should help her with pain. Reason For Visit: IRON DEFICIENCY ANEMIA,ACUTE ON CHRONIC KIDNEY Physical Exam Vital Signs: Temp Pulse Resp BP Pulse Ox 98.1 F 75 16 173/73 H 100 10/15/18 07:36 10/15/18 07:36 10/15/18 07:36 10/15/18 07:36 10/15/18 07:36 Intake & Output 10/14/18 10/15/18 10/16/18 06:59 06:59 06:59 Intake Total 2250 1420 Output Total 2200 2320 Balance 50 -900 Weight 36.8 kg 36.8 kg General appearance: PRESENT: no acute distress, well-developed, well-nourished Head exam: PRESENT: atraumatic, normocephalic Eye exam: PRESENT: conjunctiva pink, EOMI, PERRLA. ABSENT: scleral icterus Ear exam: PRESENT: normal external ear exam Mouth exam: PRESENT: moist, tongue midline Neck exam: ABSENT: carotid bruit, JVD, lymphadenopathy, thyromegaly Respiratory exam: PRESENT: clear to auscultation suman. ABSENT: rales, rhonchi, wheezes Cardiovascular exam: PRESENT: RRR. ABSENT: diastolic murmur, rubs, systolic murmur Pulses: PRESENT: normal dorsalis pedis pul Vascular exam: PRESENT: normal capillary refill GI/Abdominal exam: PRESENT: normal bowel sounds, soft. ABSENT: distended, guarding, mass, organolmegaly, rebound, tenderness Rectal exam: PRESENT: deferred Extremities exam: PRESENT: full ROM. ABSENT: calf tenderness, clubbing, pedal edema Neurological exam: PRESENT: alert, awake, oriented to person, oriented to place, oriented to time, oriented to situation, CN II-XII grossly intact. ABSENT: motor sensory deficit Psychiatric exam: PRESENT: appropriate affect, normal mood. ABSENT: homicidal ideation, suicidal ideation Skin exam: PRESENT: dry, intact, warm. ABSENT: cyanosis, rash Results Laboratory Results: 10/15/18 05:08 10/15/18 05:08 10/12/18 10/15/18 10/15/18 09:39 05:08 05:08 WBC 8.4 RBC 3.65 L Hgb 8.4 L Hct 26.3 L MCV 72 L MCH 23.1 L MCHC 32.0 RDW 21.0 H Plt Count 409 Sodium 136.4 L Potassium 4.8 Chloride 100 Carbon Dioxide 30 Anion Gap 6 BUN 24 H Creatinine 1.10 Est GFR ( Amer) 58 L Est GFR (Non-Af Amer) 48 L Glucose 71 L Calcium 10.3 H Total Protein 6.0 Albumin 2.6 L 10/05/18 10/05/18 13:30 13:30 Creatine Kinase 100 Troponin I < 0.012 Impressions: Hip X-Ray 10/05/18 12:35 IMPRESSION: Mild bilateral degenerative changes. No acute fracture or dislocation. Pelvis X-Ray 10/05/18 13:11 IMPRESSION: NEGATIVE STUDY OF THE RIGHT HIP. NO RADIOGRAPHIC EVIDENCE OF ACUTE INJURY. Chest X-Ray 10/05/18 18:08 IMPRESSION: Mild pulmonary edema without consolidation or pleural effusion. Pelvis CT 10/07/18 00:00 IMPRESSION: 1. Fracture of the left superior pubic ramus. 2. Extensive bone destruction involving the sacrum and the adjacent right ilium. Is there a known neoplasm? Consider biopsy. Abdomen/Pelvis CT 10/10/18 00:00 IMPRESSION: 1. No acute finding in the abdomen or pelvis. 2. Large lytic lesion in the sacrum and adjacent right ilium. There are subtle sclerotic lesions in the vertebral bodies concerning for metastases. 3. 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 4. Mild diverticulosis coli. Chest CT 10/10/18 00:00 IMPRESSION: Right lower lobe pneumonia. Mild dependent atelectasis in the left base. Small right pleural effusion. Bone Biopsy CT 10/12/18 09:24 IMPRESSION: CT GUIDED BIOPSY OF THE LYTIC LESION WITHIN THE RIGHT ILIUM PERFORMED WITHOUT IMMEDIATE COMPLICATION. PATHOLOGY PENDING. Assessment & Plan - Diagnosis (1) Bone metastases Is this a current diagnosis for this admission?: Yes Plan: Awaiting bone biopsy results, initiation of radiation to start on Wednesday. (2) Mass of right lung Is this a current diagnosis for this admission?: Yes Plan: Likely to be a primary lung cancer, with metastasis to bone, awaiting above bone biopsy. Hopefully we can offer some palliative therapy for her may be in terms of immunotherapy. But she will need first radiation therapy to complete, then she probably will need a rehab stay to get stronger and then we can consider therapy thereafter if clinically appropriate.
[2018-10-15] MEDS: NICOTINE 21 MG/24 HR PATCH.TD24 TD SCH (11:31)
[2018-10-15] MEDS: LORAZEPAM 0.5 MG TABLET PO SCH ×2 (11:32→22:32)
[2018-10-15] MEDS: AMLODIPINE BESYLATE 5 MG TABLET PO SCH (11:33)
[2018-10-15] MEDS: PREDNISONE 10 MG TABLET PO SCH (11:33)
[2018-10-15] MEDS: LOSARTAN POTASSIUM 50 MG TABLET PO SCH (11:33)
[2018-10-15] MEDS: MAGNESIUM HYDROXIDE SUSP 30 ML UDCUP PO SCH (11:37)
[2018-10-15] MEDS: OXYBUTYNIN CHLORIDE 5 MG TABLET PO SCH (11:38)
[2018-10-15] MEDS: FLUTICASONE/VILANTEROL 200-25 MCG/DOSE IH SCH (11:39)
[2018-10-15] MEDS ORDERED: ALBUTEROL SULFATE 0.083% NEB 2.5 MG/3 ML AMPUL NEB PRN (17:30)
[2018-10-15] MEDS: DOCUSATE SODIUM 100 MG CAPSULE PO PRN (18:35)
[2018-10-15] MEDS: LEVOFLOXACIN 750 MG TABLET PO SCH (22:32)
[2018-10-16] MEDS: HEPARIN SOD (PORCINE) 5,000 UNIT/ML 1 ML VIAL SUBCUT SCH ×3 (05:43→21:23)
--- NOTE | 2018-10-16 08:57 | PDOC PROGRESS REPORT ---
Subjective Progress Note for:: 10/16/18 Subjective:: None this a.m. October 12, 2018-none this a.m. October 13, 2018-no complaints this a.m. October 14, 2018-increased pain this a.m. October 15, 2018-continued pain October 16, 2018-continued pain Reason For Visit: IRON DEFICIENCY ANEMIA,ACUTE ON CHRONIC KIDNEY Physical Exam Vital Signs: Temp Pulse Resp BP Pulse Ox 98.1 F 71 16 126/48 H 95 10/15/18 15:18 10/15/18 16:31 10/15/18 16:31 10/15/18 15:18 10/15/18 16:31 Intake & Output 10/15/18 10/16/18 10/17/18 06:59 06:59 06:59 Intake Total 1420 1190 Output Total 2320 1200 Balance -900 -10 Weight 36.8 kg 36.7 kg General appearance: PRESENT: no acute distress, well-developed, well-nourished Neck exam: ABSENT: carotid bruit, JVD, lymphadenopathy, thyromegaly Respiratory exam: PRESENT: clear to auscultation suman. ABSENT: rales, rhonchi, wheezes Cardiovascular exam: PRESENT: RRR. ABSENT: diastolic murmur, rubs, systolic murmur Pulses: PRESENT: +1 pedal pulses bilateral GI/Abdominal exam: PRESENT: normal bowel sounds, soft. ABSENT: distended, guarding, mass, organolmegaly, rebound, tenderness Extremities exam: PRESENT: other - Decreased range of motion especially left. ABSENT: calf tenderness, clubbing, pedal edema Neurological exam: PRESENT: alert, awake Psychiatric exam: PRESENT: appropriate affect Results Laboratory Results: 10/15/18 05:08 10/15/18 05:08 10/05/18 10/05/18 13:30 13:30 Creatine Kinase 100 Troponin I < 0.012 Impressions: Hip X-Ray 10/05/18 12:35 IMPRESSION: Mild bilateral degenerative changes. No acute fracture or dislocation. Pelvis X-Ray 10/05/18 13:11 IMPRESSION: NEGATIVE STUDY OF THE RIGHT HIP. NO RADIOGRAPHIC EVIDENCE OF ACUTE INJURY. Chest X-Ray 10/05/18 18:08 IMPRESSION: Mild pulmonary edema without consolidation or pleural effusion. Pelvis CT 10/07/18 00:00 IMPRESSION: 1. Fracture of the left superior pubic ramus. 2. Extensive bone destruction involving the sacrum and the adjacent right ilium. Is there a known neoplasm? Consider biopsy. Abdomen/Pelvis CT 10/10/18 00:00 IMPRESSION: 1. No acute finding in the abdomen or pelvis. 2. Large lytic lesion in the sacrum and adjacent right ilium. There are subtle sclerotic lesions in the vertebral bodies concerning for metastases. 3. 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 4. Mild diverticulosis coli. Chest CT 10/10/18 00:00 IMPRESSION: Right lower lobe pneumonia. Mild dependent atelectasis in the left base. Small right pleural effusion. Bone Biopsy CT 10/12/18 09:24 IMPRESSION: CT GUIDED BIOPSY OF THE LYTIC LESION WITHIN THE RIGHT ILIUM PERFORMED WITHOUT IMMEDIATE COMPLICATION. PATHOLOGY PENDING. Assessment and Plan - Diagnosis (1) Pelvic fracture Qualifiers: Encounter type: initial encounter Pelvic bone location: pubis Fracture type: closed Laterality: left Is this a current diagnosis for this admission?: Yes Plan: Continue pain medication and physical therapy. She she has not been able to a mbulate without assistance presently. Will likely need short-term rehab. Discussed with her daughter Ernestine who lives in [place] as well. She is in agreement. October 11, 2018-continue current pain management therapy. This is nonoperable left superior ramus fracture. October 12, 2018-stable at this time. October 13, 2018-stable at this time nonoperative October 14, 2018-stable, patient was able to ambulate with physical therapy to the door and back yesterday October 15, 2018-pain continues in his pelvis. I discussed with hematology oncology and will place patient on fentanyl patch 12 mics every 72 hours. Will follow make adjustments to pain management as needed. October 16, 2018-patient remains with fentanyl patch and PRN pain medication at this time. Patient to go for radiation therapy in the a.m. for palliative reasons. (2) Taphr-lq-hbpeymt kidney injury Qualifiers: Acute renal failure type: unspecified Chronic kidney disease stage: stage 3 (moderate) Qualified Code(s): N17.9 - Acute kidney failure, unspecified; N18.3 - Chronic kidney disease, stage 3 (moderate) Is this a current diagnosis for this admission?: Yes Plan: Resolved with IV hydration and blood. We will continue to avoid nephrotoxic medications and dosages. October 11, 2018-resolved stable October 12, 2018-creatinine 1.3 this morning. I suspect this is mostly from slight dehydration as patient's eyes no show more out than in at this time will place patient on normal saline at 50 mL an hour for hydration we will repeat BMP in a.m. October 13, 2018-resolved October 14, 2018-resolved October 15, 2018-resolved DC daily BMPs October 16, 2018-continue to follow will check daily BMP in 2 to 3 days (3) Iron deficiency anemia Qualifiers: Iron deficiency anemia type: unspecified iron deficiency Qualified Code(s): D50.9 - Iron deficiency anemia, unspecified Is this a current diagnosis for this admission?: Yes (4) Lytic lesion of bone on x-ray Is this a current diagnosis for this admission?: Yes Plan: October 11, 2018-pelvis CT shows lytic lesion of sacrum. At this time will consult Dr. Masters with oncology to see if there is any further recommendations. October 12, 2018-discussed with Dr. Hawley who is discussed with Dr. Crum. We will do a CT-guided biopsy of this lytic lesion and progress with radiation therapy for comfort measures. October 13, 2018-biopsy obtained. Awaiting results. At that time patient most likely will benefit from palliative radiation. I discussed this with Dr. Subramanian this a.m. October 14, 2018-biopsy obtained. Radiation oncology consulted for palliative radiation. Will await the recommendations October 15, 2018-patient seen by radiation oncology. Radiation therapy will start Tuesday October 16, 2018-radiation therapy in the a.m. (5) Left hip pain Is this a current diagnosis for this admission?: Yes Plan: Will CT hip. She is still having complaints of severe pain in the left hip She is presently getting Tylenol and Ultram as needed. October 11, 2018-CT the hip showed no acute fracture. Continue Tylenol and Ultram as needed. October 12, 2018-continue PRN pain medications. October 13, 2018-improved continue PRN pain medications October 14, 2018-continue PRN pain medications October 15, 2018-continue PRN pain medications add fentanyl 12 mics topical every 72 hours October 16, 2018-continue fentanyl patch and PRN pain medications (6) Hypertension Qualifiers: Hypertension type: essential hypertension Qualified Code(s): I10 - Essential (primary) hypertension Is this a current diagnosis for this admission?: Yes Plan: We will continue home medications she presently is now normotensive. October 11, 2018-stable. Continue home medications. October 12, 2018-mildly elevated this morning I suspect this is from pain. Patient was getting her pain medication as I walked in the room. Patient's only on tramadol at this time I may entertain the notion of place patient on a mild Vicodin if pain persist. October 13, 2018-patient remains mildly elevated with systolic blood pressure. At this time will initiate Norvasc 5 mill grams p.o. daily will titrate patient effect. October 14, 2018-stable October 15, 2018-increase this morning but I suspect this is from pain. We will add fentanyl patch continue to follow October 16, 2018-stable (7) Protein-calorie malnutrition, moderate Is this a current diagnosis for this admission?: Yes Plan: Evidence by BMI of 18.6, poor skin turgor. Liberalize diet, nutritional supplements October-continue nutritional supplementation. October 12, 2018-continue nutritional supplementation October 13, 2018-continue nutritional supplementation October 14, 2018-continue nutritional supplementation October 15, 2018-continue nutritional support October 16, 2018-continue nutritional support - Time Time Spent with patient: Less than 15 minutes - Inpatient Certification Based on my medical assessment, after consideration of the patient's comorbidities, presenting symptoms, or acuity I expect that the services needed warrant INPATIENT care.: Yes I certify that my determination is in accordance with my understanding of Medicare's requirements for reasonable and necessary INPATIENT services [42 CFR 412.3e].: Yes Medical Necessity: Other
[2018-10-16] MEDS: LORAZEPAM 0.5 MG TABLET PO SCH ×2 (09:15→21:23)
[2018-10-16] MEDS: SODIUM CHLORIDE NASAL SPRAY 44 ML NASL SCH ×4 (09:15→21:25)
[2018-10-16] MEDS: FERROUS SULFATE 325 MG TABLET PO SCH ×2 (09:16→18:03)
[2018-10-16] MEDS: LOSARTAN POTASSIUM 50 MG TABLET PO SCH (09:16)
[2018-10-16] MEDS: AMLODIPINE BESYLATE 5 MG TABLET PO SCH (09:16)
[2018-10-16] MEDS: PREDNISONE 10 MG TABLET PO SCH (09:16)
[2018-10-16] MEDS: NICOTINE 21 MG/24 HR PATCH.TD24 TD SCH (09:17)
[2018-10-16] MEDS: MAGNESIUM HYDROXIDE SUSP 30 ML UDCUP PO SCH (09:19)
[2018-10-16] MEDS: ACETAMINOPHEN 325 MG TABLET PO PRN ×2 (09:22→18:07)
[2018-10-16] MEDS: FLUTICASONE/VILANTEROL 200-25 MCG/DOSE IH SCH (09:24)
[2018-10-16] MEDS: OXYBUTYNIN CHLORIDE 5 MG TABLET PO SCH (09:27)
[2018-10-17] MEDS: HEPARIN SOD (PORCINE) 5,000 UNIT/ML 1 ML VIAL SUBCUT SCH ×3 (05:17→21:24)
[2018-10-17] MEDS: SODIUM CHLORIDE NASAL SPRAY 44 ML NASL SCH ×4 (07:52→21:26)
[2018-10-17] MEDS: ACETAMINOPHEN 325 MG TABLET PO PRN ×2 (07:53→17:32)
[2018-10-17] MEDS: FERROUS SULFATE 325 MG TABLET PO SCH ×2 (07:59→17:32)
--- NOTE | 2018-10-17 08:26 | PDOC PROGRESS REPORT ---
Subjective Progress Note for:: 10/17/18 Subjective:: No acute events overnight Reason For Visit: IRON DEFICIENCY ANEMIA,ACUTE ON CHRONIC KIDNEY Physical Exam Vital Signs: Temp Pulse Resp BP Pulse Ox 98.1 F 68 16 128/64 H 93 10/16/18 23:23 10/16/18 23:23 10/16/18 23:23 10/16/18 23:23 10/17/18 01:27 Intake & Output 10/16/18 10/17/18 10/18/18 06:59 06:59 06:59 Intake Total 1190 1800 Output Total 1200 2000 Balance -10 -200 Weight 36.7 kg 36.7 kg General appearance: PRESENT: no acute distress, well-developed, well-nourished Head exam: PRESENT: atraumatic, normocephalic Eye exam: PRESENT: conjunctiva pink, EOMI, PERRLA. ABSENT: scleral icterus Ear exam: PRESENT: normal external ear exam Mouth exam: PRESENT: moist, tongue midline Neck exam: ABSENT: carotid bruit, JVD, lymphadenopathy, thyromegaly Respiratory exam: PRESENT: clear to auscultation suman. ABSENT: rales, rhonchi, wheezes Cardiovascular exam: PRESENT: RRR. ABSENT: diastolic murmur, rubs, systolic murmur Pulses: PRESENT: normal dorsalis pedis pul Vascular exam: PRESENT: normal capillary refill GI/Abdominal exam: PRESENT: normal bowel sounds, soft. ABSENT: distended, guarding, mass, organolmegaly, rebound, tenderness Rectal exam: PRESENT: deferred Extremities exam: PRESENT: full ROM. ABSENT: calf tenderness, clubbing, pedal edema Neurological exam: PRESENT: alert, awake, oriented to person, oriented to place, oriented to time, oriented to situation, CN II-XII grossly intact. ABSENT: motor sensory deficit Psychiatric exam: PRESENT: appropriate affect, normal mood. ABSENT: homicidal ideation, suicidal ideation Skin exam: PRESENT: dry, intact, warm. ABSENT: cyanosis, rash Results Laboratory Results: 10/15/18 05:08 10/15/18 05:08 10/05/18 10/05/18 13:30 13:30 Creatine Kinase 100 Troponin I < 0.012 Impressions: Hip X-Ray 10/05/18 12:35 IMPRESSION: Mild bilateral degenerative changes. No acute fracture or disloc ation. Pelvis X-Ray 10/05/18 13:11 IMPRESSION: NEGATIVE STUDY OF THE RIGHT HIP. NO RADIOGRAPHIC EVIDENCE OF ACUTE INJURY. Chest X-Ray 10/05/18 18:08 IMPRESSION: Mild pulmonary edema without consolidation or pleural effusion. Pelvis CT 10/07/18 00:00 IMPRESSION: 1. Fracture of the left superior pubic ramus. 2. Extensive bone destruction involving the sacrum and the adjacent right ilium. Is there a known neoplasm? Consider biopsy. Abdomen/Pelvis CT 10/10/18 00:00 IMPRESSION: 1. No acute finding in the abdomen or pelvis. 2. Large lytic lesion in the sacrum and adjacent right ilium. There are subtle sclerotic lesions in the vertebral bodies concerning for metastases. 3. 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 4. Mild diverticulosis coli. Chest CT 10/10/18 00:00 IMPRESSION: Right lower lobe pneumonia. Mild dependent atelectasis in the left base. Small right pleural effusion. Bone Biopsy CT 10/12/18 09:24 IMPRESSION: CT GUIDED BIOPSY OF THE LYTIC LESION WITHIN THE RIGHT ILIUM PERFORMED WITHOUT IMMEDIATE COMPLICATION. PATHOLOGY PENDING. Assessment & Plan - Diagnosis (1) Bone metastases Is this a current diagnosis for this admission?: Yes Plan: Xrt to start today, cont w/ fentanyl patch (2) Mass of right lung Is this a current diagnosis for this admission?: Yes Plan: Await bx of bone met
--- NOTE | 2018-10-17 08:39 | PDOC PROGRESS REPORT ---
Subjective Progress Note for:: 10/17/18 Subjective:: None this a.m. October 12, 2018-none this a.m. October 13, 2018-no complaints this a.m. October 14, 2018-increased pain this a.m. October 15, 2018-continued pain October 16, 2018-continued pain October 17, 2018-continue pain Reason For Visit: IRON DEFICIENCY ANEMIA,ACUTE ON CHRONIC KIDNEY Physical Exam Vital Signs: Temp Pulse Resp BP Pulse Ox 98.1 F 68 16 128/64 H 93 10/16/18 23:23 10/16/18 23:23 10/16/18 23:23 10/16/18 23:23 10/17/18 01:27 Intake & Output 10/16/18 10/17/18 10/18/18 06:59 06:59 06:59 Intake Total 1190 1800 Output Total 1200 2000 Balance -10 -200 Weight 36.7 kg 36.7 kg General appearance: PRESENT: no acute distress, well-developed, well-nourished Neck exam: ABSENT: carotid bruit, JVD, lymphadenopathy, thyromegaly Respiratory exam: PRESENT: clear to auscultation suman. ABSENT: rales, rhonchi, wheezes Cardiovascular exam: PRESENT: RRR. ABSENT: diastolic murmur, rubs, systolic murmur Pulses: PRESENT: +1 pedal pulses bilateral GI/Abdominal exam: PRESENT: normal bowel sounds, soft. ABSENT: distended, guarding, mass, organolmegaly, rebound, tenderness Extremities exam: PRESENT: other - Decreased range of motion left lower extr emity. ABSENT: calf tenderness, clubbing, pedal edema Neurological exam: PRESENT: alert, awake Psychiatric exam: PRESENT: appropriate affect Skin exam: PRESENT: dry, intact, warm. ABSENT: cyanosis, rash Results Laboratory Results: 10/15/18 05:08 10/15/18 05:08 10/05/18 10/05/18 13:30 13:30 Creatine Kinase 100 Troponin I < 0.012 Impressions: Hip X-Ray 10/05/18 12:35 IMPRESSION: Mild bilateral degenerative changes. No acute fracture or d islocation. Pelvis X-Ray 10/05/18 13:11 IMPRESSION: NEGATIVE STUDY OF THE RIGHT HIP. NO RADIOGRAPHIC EVIDENCE OF ACUTE INJURY. Chest X-Ray 10/05/18 18:08 IMPRESSION: Mild pulmonary edema without consolidation or pleural effusion. Pelvis CT 10/07/18 00:00 IMPRESSION: 1. Fracture of the left superior pubic ramus. 2. Extensive bone destruction involving the sacrum and the adjacent right ilium. Is there a known neoplasm? Consider biopsy. Abdomen/Pelvis CT 10/10/18 00:00 IMPRESSION: 1. No acute finding in the abdomen or pelvis. 2. Large lytic lesion in the sacrum and adjacent right ilium. There are subtle sclerotic lesions in the vertebral bodies concerning for metastases. 3. 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 4. Mild diverticulosis coli. Chest CT 10/10/18 00:00 IMPRESSION: Right lower lobe pneumonia. Mild dependent atelectasis in the left base. Small right pleural effusion. Bone Biopsy CT 10/12/18 09:24 IMPRESSION: CT GUIDED BIOPSY OF THE LYTIC LESION WITHIN THE RIGHT ILIUM PERFORMED WITHOUT IMMEDIATE COMPLICATION. PATHOLOGY PENDING. Assessment and Plan - Diagnosis (1) Pelvic fracture Qualifiers: Encounter type: initial encounter Pelvic bone location: pubis Fracture type: closed Laterality: left Is this a current diagnosis for this admission?: Yes Plan: Continue pain medication and physical therapy. She she has not been able to ambulate without assistance presently. Will likely need short-term rehab. D iscussed with her daughter Ernestine who lives in [place] as well. She is in agreement. October 11, 2018-continue current pain management therapy. This is nonoperable left superior ramus fracture. October 12, 2018-stable at this time. October 13, 2018-stable at this time nonoperative October 14, 2018-stable, patient was able to ambulate with physical therapy to the door and back yesterday October 15, 2018-pain continues in his pelvis. I discussed with hematology oncology and will place patient on fentanyl patch 12 mics every 72 hours. Will follow make adjustments to pain management as needed. October 16, 2018-patient remains with fentanyl patch and PRN pain medication at this time. Patient to go for radiation therapy in the a.m. for palliative reasons. October 17, 2018-patient remains with continued pain. I have discussed this with hematology oncology we will increase patient's mental patch 25 mics per hour and continue PRN pain medication. Patient to go to [facility] this a.m. for palliative radiation therapy for pain control. (2) Qqvje-hr-xmjhovt kidney injury Qualifiers: Acute renal failure type: unspecified Chronic kidney disease stage: stage 3 (moderate) Qualified Code(s): N17.9 - Acute kidney failure, unspecified; N18.3 - Chronic kidney disease, stage 3 (moderate) Is this a current diagnosis for this admission?: Yes Plan: Resolved with IV hydration and blood. We will continue to avoid nephrotoxic medications and dosages. October 11, 2018-resolved stable October 12, 2018-creatinine 1.3 this morning. I suspect this is mostly from slight dehydration as patient's eyes no show more out than in at this time will place patient on normal saline at 50 mL an hour for hydration we will repeat BMP in a.m. October 13, 2018-resolved October 14, 2018-resolved October 15, 2018-resolved DC daily BMPs October 16, 2018-continue to follow will check daily BMP in 2 to 3 days October 17, 2018-stable (3) Iron deficiency anemia Qualifiers: Iron deficiency anemia type: unspecified iron deficiency Qualified Code(s): D50.9 - Iron deficiency anemia, unspecified Is this a current diagnosis for this admission?: Yes (4) Lytic lesion of bone on x-ray Is this a current diagnosis for this admission?: Yes Plan: October 11, 2018-pelvis CT shows lytic lesion of sacrum. At this time will consult Dr. Masters with oncology to see if there is any further recommendati ons. October 12, 2018-discussed with Dr. Hawley who is discussed with Dr. Crum. We will do a CT-guided biopsy of this lytic lesion and progress with radiation therapy for comfort measures. October 13, 2018-biopsy obtained. Awaiting results. At that time patient most likely will benefit from palliative radiation. I discussed this with Dr. Subramanian this a.m. October 14, 2018-biopsy obtained. Radiation oncology consulted for palliative radiation. Will await the recommendations October 15, 2018-patient seen by radiation oncology. Radiation therapy will start Tuesday October 16, 2018-radiation therapy in the a.m. October 17, 2018-plan is to take patient have radiation therapy this morning. (5) Left hip pain Is this a current diagnosis for this admission?: Yes Plan: Will CT hip. She is still having complaints of severe pain in the left hip She is presently getting Tylenol and Ultram as needed. October 11, 2018-CT the hip showed no acute fracture. Continue Tylenol and Ultram as needed. October 12, 2018-continue PRN pain medications. October 13, 2018-improved continue PRN pain medications October 14, 2018-continue PRN pain medications October 15, 2018-continue PRN pain medications add fentanyl 12 mics topical every 72 hours October 16, 2018-continue fentanyl patch and PRN pain medications October 17, 2018-increase fentanyl patch to 25 mics per hour continue PRN pain medications (6) Hypertension Qualifiers: Hypertension type: essential hypertension Qualified Code(s): I10 - Essential (primary) hypertension Is this a current diagnosis for this admission?: Yes Plan: We will continue home medications she presently is now normotensive. October 11, 2018-stable. Continue home medications. October 12, 2018-mildly elevated this morning I suspect this is from pain. Patient was getting her pain medication as I walked in the room. Patient's only on tramadol at this time I may entertain the notion of place patient on a mild Vicodin if pain persist. October 13, 2018-patient remains mildly elevated with systolic blood pressure. At this time will initiate Norvasc 5 mill grams p.o. daily will titrate patient effect. October 14, 2018-stable October 15, 2018-increase this morning but I suspect this is from pain. We will add fentanyl patch continue to follow October 16, 2018-stable October 17, 2018-stable (7) Protein-calorie malnutrition, moderate Is this a current diagnosis for this admission?: Yes Plan: Evidence by BMI of 18.6, poor skin turgor. Liberalize diet, nutritional supplements October-continue nutritional supplementation. October 12, 2018-continue nutritional supplementation October 13, 2018-continue nutritional supplementation October 14, 2018-continue nutritional supplementation October 15, 2018-continue nutritional support October 16, 2018-continue nutritional support October 17-continue nutritional support. - Time Time Spent with patient: 15-24 minutes - Inpatient Certification Based on my medical assessment, after consideration of the patient's comorbidities, presenting symptoms, or acuity I expect that the services needed warrant INPATIENT care.: Yes I certify that my determination is in accordance with my understanding of Medicare's requirements for reasonable and necessary INPATIENT services [42 CFR 412.3e].: Yes Medical Necessity: Other - Radiation therapy, pain control
[2018-10-17] MEDS: LORAZEPAM 0.5 MG TABLET PO SCH ×2 (09:35→21:23)
[2018-10-17] MEDS: LOSARTAN POTASSIUM 50 MG TABLET PO SCH (09:36)
[2018-10-17] MEDS: AMLODIPINE BESYLATE 5 MG TABLET PO SCH (09:37)
[2018-10-17] MEDS: PREDNISONE 10 MG TABLET PO SCH (09:37)
[2018-10-17] MEDS: FLUTICASONE/VILANTEROL 200-25 MCG/DOSE IH SCH (09:38)
[2018-10-17] MEDS: FENTANYL 25 MCG/HR PATCH.TD72 TD SCH (09:38)
[2018-10-17] MEDS: NICOTINE 21 MG/24 HR PATCH.TD24 TD SCH (09:40)
[2018-10-17] MEDS: MAGNESIUM HYDROXIDE SUSP 30 ML UDCUP PO SCH (09:41)
[2018-10-17] MEDS: OXYBUTYNIN CHLORIDE 5 MG TABLET PO SCH (09:42)
[2018-10-17] MEDS: LEVOFLOXACIN 750 MG TABLET PO SCH (21:23)
[2018-10-18] MEDS: HEPARIN SOD (PORCINE) 5,000 UNIT/ML 1 ML VIAL SUBCUT SCH ×3 (05:17→21:57)
[2018-10-18] MEDS: ACETAMINOPHEN 325 MG TABLET PO PRN ×2 (07:37→18:30)
[2018-10-18] MEDS: SODIUM CHLORIDE NASAL SPRAY 44 ML NASL SCH ×4 (07:38→21:59)
--- NOTE | 2018-10-18 08:43 | PDOC PROGRESS REPORT ---
Subjective Progress Note for:: 10/18/18 Subjective:: Pain seems a little better, no acute event overnight, xrt planned today Reason For Visit: IRON DEFICIENCY ANEMIA,ACUTE ON CHRONIC KIDNEY Physical Exam Vital Signs: Temp Pulse Resp BP Pulse Ox 97.4 F 73 18 118/56 L 98 10/17/18 23:46 10/17/18 23:46 10/17/18 23:46 10/17/18 23:46 10/17/18 23:46 Intake & Output 10/17/18 10/18/18 10/19/18 06:59 06:59 06:59 Intake Total 1800 1940 Output Total 1999 1420 Balance -200 520 Weight 36.7 kg 35.3 kg General appearance: PRESENT: no acute distress, well-developed, well-nourished Head exam: PRESENT: atraumatic, normocephalic Eye exam: PRESENT: conjunctiva pink, EOMI, PERRLA. ABSENT: scleral icterus Ear exam: PRESENT: normal external ear exam Mouth exam: PRESENT: moist, tongue midline Neck exam: ABSENT: carotid bruit, JVD, lymphadenopathy, thyromegaly Respiratory exam: PRESENT: clear to auscultation suman. ABSENT: rales, rhonchi, wheezes Cardiovascular exam: PRESENT: RRR. ABSENT: diastolic murmur, rubs, systolic murmur Pulses: PRESENT: normal dorsalis pedis pul Vascular exam: PRESENT: normal capillary refill GI/Abdominal exam: PRESENT: normal bowel sounds, soft. ABSENT: distended, guarding, mass, organolmegaly, rebound, tenderness Rectal exam: PRESENT: deferred Extremities exam: PRESENT: full ROM. ABSENT: calf tenderness, clubbing, pedal edema Neurological exam: PRESENT: alert, awake, oriented to person, oriented to place, oriented to time, oriented to situation, CN II-XII grossly intact. ABSENT: motor sensory deficit Psychiatric exam: PRESENT: appropriate affect, normal mood. ABSENT: homicidal ideation, suicidal ideation Skin exam: PRESENT: dry, intact, warm. ABSENT: cyanosis, rash Results Laboratory Results: 10/15/18 05:08 10/15/18 05:08 10/05/18 10/05/18 13:30 13:30 Creatine Kinase 100 Troponin I < 0.012 Impressions: Hip X-Ray 10/05/18 12:35 IMPRESSION: Mild bilateral degenerative changes. No acute fracture or dislocation. Pelvis X-Ray 10/05/18 13:11 IMPRESSION: NEGATIVE STUDY OF THE RIGHT HIP. NO RADIOGRAPHIC EVIDENCE OF ACUTE INJURY. Chest X-Ray 10/05/18 18:08 IMPRESSION: Mild pulmonary edema without consolidation or pleural effusion. Pelvis CT 10/07/18 00:00 IMPRESSION: 1. Fracture of the left superior pubic ramus. 2. Extensive bone destruction involving the sacrum and the adjacent right ilium. Is there a known neoplasm? Consider biopsy. Abdomen/Pelvis CT 10/10/18 00:00 IMPRESSION: 1. No acute finding in the abdomen or pelvis. 2. Large lytic lesion in the sacrum and adjacent right ilium. There are subtle sclerotic lesions in the vertebral bodies concerning for metastases. 3. 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 4. Mild diverticulosis coli. Chest CT 10/10/18 00:00 IMPRESSION: Right lower lobe pneumonia. Mild dependent atelectasis in the left base. Small right pleural effusion. Bone Biopsy CT 10/12/18 09:24 IMPRESSION: CT GUIDED BIOPSY OF THE LYTIC LESION WITHIN THE RIGHT ILIUM PERFORMED WITHOUT IMMEDIATE COMPLICATION. PATHOLOGY PENDING. Assessment & Plan - Diagnosis (1) Bone metastases Is this a current diagnosis for this admission?: Yes Plan: Cont w/ XRT, path back and pt w/ metastatic lung ca (2) Primary cancer of right lower lobe of lung Is this a current diagnosis for this admission?: Yes Plan: RLL lung ca w/ mets to bone. Would like to eventually consider some sort of immunoRx as oupt but pt needs to complete XRT then go to rehab and get stronger, then could potentially decide on that
[2018-10-18] MEDS: AMLODIPINE BESYLATE 5 MG TABLET PO SCH (09:51)
[2018-10-18] MEDS: PREDNISONE 10 MG TABLET PO SCH (09:51)
[2018-10-18] MEDS: LOSARTAN POTASSIUM 50 MG TABLET PO SCH (09:52)
[2018-10-18] MEDS: LORAZEPAM 0.5 MG TABLET PO SCH ×2 (09:52→21:56)
[2018-10-18] MEDS: OXYBUTYNIN CHLORIDE 5 MG TABLET PO SCH (09:54)
[2018-10-18] MEDS: FLUTICASONE/VILANTEROL 200-25 MCG/DOSE IH SCH (09:54)
[2018-10-18] MEDS ORDERED: FERUMOXYTOL (NON-ESRD) 510 MG/NS 100 ML IV ONE ×2 (10:00)
[2018-10-18] MEDS: NICOTINE 21 MG/24 HR PATCH.TD24 TD SCH (10:01)
[2018-10-18] MEDS: MAGNESIUM HYDROXIDE SUSP 30 ML UDCUP PO SCH (10:03)
[2018-10-18] MEDS: ALBUTEROL SULFATE 0.042% NEB (1.25 MG/3 ML) AMPUL NEB SCH ×2 (13:43→20:26)
--- NOTE | 2018-10-18 17:20 | PDOC PROGRESS REPORT ---
Subjective Progress Note for:: 10/18/18 Subjective:: This is a 78-year-old female who initially presented with leg weakness and a fall. Patient was later found to have bony lytic metastatic lesions on the sacrum deemed possibly from a metastatic lung cancer. She was also found to have an DEIRDRE on top of her CKD. Orthopedics and oncology evaluated patient. They have recommended radiotherapy. Patient is going for her 2nd radiation treatment today. No acute event overnight. She denies acute complaints. Reason For Visit: IRON DEFICIENCY ANEMIA,ACUTE ON CHRONIC KIDNEY Physical Exam Vital Signs: Temp Pulse Resp BP Pulse Ox 97.4 F 84 18 118/56 L 97 10/17/18 23:46 10/18/18 13:43 10/18/18 13:43 10/17/18 23:46 10/18/18 13:43 Intake & Output 10/17/18 10/18/18 10/19/18 06:59 06:59 06:59 Intake Total 1800 1940 Output Total 2000 1420 Balance -200 520 Weight 80 lb 14.554 oz 77 lb 13.171 oz General appearance: PRESENT: no acute distress, well-developed, well-nourished Head exam: PRESENT: atraumatic, normocephalic Eye exam: PRESENT: conjunctiva pink, EOMI, PERRLA. ABSENT: scleral icterus Ear exam: PRESENT: normal external ear exam Mouth exam: PRESENT: moist, tongue midline Neck exam: ABSENT: carotid bruit, JVD, lymphadenopathy, thyromegaly Respiratory exam: PRESENT: clear to auscultation suman. ABSENT: rales, rhonchi, wheezes Cardiovascular exam: PRESENT: RRR. ABSENT: diastolic murmur, rubs, systolic murmur Pulses: PRESENT: normal dorsalis pedis pul GI/Abdominal exam: PRESENT: normal bowel sounds, soft. ABSENT: distended, guarding, mass, organolmegaly, rebound, tenderness Rectal exam: PRESENT: deferred Neurological exam: PRESENT: alert, awake, oriented to person, CN II-XII grossly intact. ABSENT: motor sensory deficit Results Laboratory Results: 10/15/18 05:08 10/15/18 05:08 10/05/18 10/05/18 13:30 13:30 Creatine Kinase 100 Troponin I < 0.012 Impressions: Hip X-Ray 10/05/18 12:35 IMPRESSION: Mild bilateral degenerative changes. No acute fracture or dislocation. Pelvis X-Ray 10/05/18 13:11 IMPRESSION: NEGATIVE STUDY OF THE RIGHT HIP. NO RADIOGRAPHIC EVIDENCE OF ACUTE INJURY. Chest X-Ray 10/05/18 18:08 IMPRESSION: Mild pulmonary edema without consolidation or pleural effusion. Pelvis CT 10/07/18 00:00 IMPRESSION: 1. Fracture of the left superior pubic ramus. 2. Extensive bone destruction involving the sacrum and the adjacent right ilium. Is there a known neoplasm? Consider biopsy. Abdomen/Pelvis CT 10/10/18 00:00 IMPRESSION: 1. No acute finding in the abdomen or pelvis. 2. Large lytic lesion in the sacrum and adjacent right ilium. There are subtle sclerotic lesions in the vertebral bodies concerning for metastases. 3. 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 4. Mild diverticulosis coli. Chest CT 10/10/18 00:00 IMPRESSION: Right lower lobe pneumonia. Mild dependent atelectasis in the left base. Small right pleural effusion. Bone Biopsy CT 10/12/18 09:24 IMPRESSION: CT GUIDED BIOPSY OF THE LYTIC LESION WITHIN THE RIGHT ILIUM PERFORMED WITHOUT IMMEDIATE COMPLICATION. PATHOLOGY PENDING. Assessment and Plan - Diagnosis (1) Bone metastases Is this a current diagnosis for this admission?: Yes Plan: Initiated on radiation treatment per orthopedics and oncology. (2) Primary cancer of right lower lobe of lung Is this a current diagnosis for this admission?: Yes Plan: As per #1. Oncology following. She will need further work-up for this and outpatient follow-up with oncology. (3) Erxwe-[id number]-[id number] kidney injury Qualifiers: Acute renal failure type: unspecified Chronic kidney disease stage: stage 3 (moderate) Qualified Code(s): N17.9 - Acute kidney failure, unspecified; N18.3 - Chronic kidney disease, stage 3 (moderate) Is this a current diagnosis for this admission?: Yes Plan: Resolved with IV hydration. (4) COPD (chronic obstructive pulmonary disease) Qualifiers: COPD type: emphysema Emphysema type: centrilobular Qualified Code(s): J43.2 - Centrilobular emphysema Is this a current diagnosis for this admission?: Yes Plan: Not in exacerbation. Breathing treatments as needed. (5) Hypertension Qualifiers: Hypertension type: essential hypertension Qualified Code(s): I10 - Essential (primary) hypertension Is this a current diagnosis for this admission?: Yes - Time Time Spent with patient: 25-34 minutes
[2018-10-19] MEDS: ALBUTEROL SULFATE 0.042% NEB (1.25 MG/3 ML) AMPUL NEB SCH ×4 (02:30→20:31)
[2018-10-19] MEDS: HEPARIN SOD (PORCINE) 5,000 UNIT/ML 1 ML VIAL SUBCUT SCH ×3 (05:04→22:01)
--- NOTE | 2018-10-19 08:06 | PDOC PROGRESS REPORT ---
Subjective Progress Note for:: 10/19/18 Subjective:: Yesterday nursing did try and talk with patient about physical therapy but patient did not seem to follow the conversation fully, and has continued to refuse therapy. Reason For Visit: IRON DEFICIENCY ANEMIA,ACUTE ON CHRONIC KIDNEY Physical Exam Vital Signs: Temp Pulse Resp BP Pulse Ox 97.8 F 84 18 123/53 L 96 10/18/18 23:22 10/19/18 02:32 10/19/18 02:32 10/18/18 23:22 10/19/18 02:32 Intake & Output 10/18/18 10/19/18 10/20/18 06:59 06:59 06:59 Intake Total 1940 480 Output Total 1420 900 Balance 520 -420 Weight 35.3 kg 35.3 kg General appearance: PRESENT: no acute distress, well-developed, well-nourished Head exam: PRESENT: atraumatic, normocephalic Eye exam: PRESENT: conjunctiva pink, EOMI, PERRLA. ABSENT: scleral icterus Ear exam: PRESENT: normal external ear exam Mouth exam: PRESENT: moist, tongue midline Neck exam: ABSENT: carotid bruit, JVD, lymphadenopathy, thyromegaly Respiratory exam: PRESENT: clear to auscultation suman. ABSENT: rales, rhonchi, wheezes Cardiovascular exam: PRESENT: RRR. ABSENT: diastolic murmur, rubs, systolic murmur Pulses: PRESENT: normal dorsalis pedis pul Vascular exam: PRESENT: normal capillary refill GI/Abdominal exam: PRESENT: normal bowel sounds, soft. ABSENT: distended, guarding, mass, organolmegaly, rebound, tenderness Rectal exam: PRESENT: deferred Extremities exam: PRESENT: full ROM. ABSENT: calf tenderness, clubbing, pedal edema Neurological exam: PRESENT: alert, awake, oriented to person, oriented to place, oriented to time, oriented to situation, CN II-XII grossly intact. ABSENT: motor sensory deficit Psychiatric exam: PRESENT: appropriate affect, normal mood. ABSENT: homicidal ideation, suicidal ideation Skin exam: PRESENT: dry, intact, warm. ABSENT: cyanosis, rash Results Laboratory Results: 10/15/18 05:08 10/15/18 05:08 10/05/18 10/05/18 13:30 13:30 Creatine Kinase 100 Troponin I < 0.012 Impressions: Hip X-Ray 10/05/18 12:35 IMPRESSION: Mild bilateral degenerative changes. No acute fracture or dislocation. Pelvis X-Ray 10/05/18 13:11 IMPRESSION: NEGATIVE STUDY OF THE RIGHT HIP. NO RADIOGRAPHIC EVIDENCE OF ACUTE INJURY. Chest X-Ray 10/05/18 18:08 IMPRESSION: Mild pulmonary edema without consolidation or pleural effusion. Pelvis CT 10/07/18 00:00 IMPRESSION: 1. Fracture of the left superior pubic ramus. 2. Extensive bone destruction involving the sacrum and the adjacent right ilium. Is there a known neoplasm? Consider biopsy. Abdomen/Pelvis CT 10/10/18 00:00 IMPRESSION: 1. No acute finding in the abdomen or pelvis. 2. Large lytic lesion in the sacrum and adjacent right ilium. There are subtle sclerotic lesions in the vertebral bodies concerning for metastases. 3. 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 4. Mild diverticulosis coli. Chest CT 10/10/18 00:00 IMPRESSION: Right lower lobe pneumonia. Mild dependent atelectasis in the left base. Small right pleural effusion. Bone Biopsy CT 10/12/18 09:24 IMPRESSION: CT GUIDED BIOPSY OF THE LYTIC LESION WITHIN THE RIGHT ILIUM PERFORMED WITHOUT IMMEDIATE COMPLICATION. PATHOLOGY PENDING. Assessment & Plan - Diagnosis (1) Bone metastases Is this a current diagnosis for this admission?: Yes Plan: Secondary to metastatic lung cancer, continue with radiation. (2) Primary cancer of right lower lobe of lung Is this a current diagnosis for this admission?: Yes Plan: Stage IV lung cancer, bone metastasis. Continue with radiation. Continue with pain control. - Time Time Spent with patient: 35 or more minutes - Inpatient Certification Based on my medical assessment, after consideration of the patient's c omorbidities, presenting symptoms, or acuity I expect that the services needed warrant INPATIENT care.: Yes I certify that my determination is in accordance with my understanding of Medicare's requirements for reasonable and necessary INPATIENT services [42 CFR 412.3e].: Yes Medical Necessity: Risk of Complication if Not Cared For in Hospital
[2018-10-19] MEDS: SODIUM CHLORIDE NASAL SPRAY 44 ML NASL SCH ×4 (09:00→22:00)
[2018-10-19] MEDS: LORAZEPAM 0.5 MG TABLET PO SCH ×2 (09:06→21:59)
[2018-10-19] MEDS: NICOTINE 21 MG/24 HR PATCH.TD24 TD SCH (09:07)
[2018-10-19] MEDS: AMLODIPINE BESYLATE 5 MG TABLET PO SCH (09:07)
[2018-10-19] MEDS: ACETAMINOPHEN 325 MG TABLET PO PRN ×2 (09:07→17:24)
[2018-10-19] MEDS: PREDNISONE 10 MG TABLET PO SCH (09:07)
[2018-10-19] MEDS: LOSARTAN POTASSIUM 50 MG TABLET PO SCH (09:07)
[2018-10-19] MEDS: OXYBUTYNIN CHLORIDE 5 MG TABLET PO SCH (09:09)
[2018-10-19] MEDS: MAGNESIUM HYDROXIDE SUSP 30 ML UDCUP PO SCH (09:09)
[2018-10-19] MEDS: FLUTICASONE/VILANTEROL 200-25 MCG/DOSE IH SCH (09:11)
--- NOTE | 2018-10-19 12:57 | PDOC PROGRESS REPORT ---
Subjective Progress Note for:: 10/19/18 Subjective:: This is a 78-year-old female who initially presented with leg weakness and a fall. Patient was later found to have bony lytic metastatic lesions on the sacrum deemed possibly from a metastatic lung cancer. She was also found to have an DEIRDRE on top of her CKD. Orthopedics and oncology evaluated patient. They have recommended radiotherapy. 10/18: Patient is going for her 2nd radiation treatment today. No acute event overnight. She denies acute complaints. 10/19: No acute event overnight. Patient has very hearing problem. She does say she is having back and pelvic pain this morning. Discussed with hem/onc who has recommended RT until wednesday. Will further discuss plan of care and disposition with POA/family. Reason For Visit: IRON DEFICIENCY ANEMIA,ACUTE ON CHRONIC KIDNEY Physical Exam Vital Signs: Temp Pulse Resp BP Pulse Ox 97.5 F 87 18 137/55 H 93 10/19/18 07:41 10/19/18 08:12 10/19/18 08:12 10/19/18 07:41 10/19/18 08:12 Intake & Output 10/18/18 10/19/18 10/20/18 06:59 06:59 06:59 Intake Total 1940 580 Output Total 1420 900 Balance 520 -320 Weight 77 lb 13.171 oz 77 lb 13.171 oz General appearance: PRESENT: no acute distress, well-developed, well-nourished Head exam: PRESENT: atraumatic, normocephalic Eye exam: PRESENT: conjunctiva pink, EOMI, PERRLA. ABSENT: scleral icterus Ear exam: PRESENT: normal external ear exam Mouth exam: PRESENT: moist, tongue midline Neck exam: ABSENT: carotid bruit, JVD, lymphadenopathy, thyromegaly Respiratory exam: PRESENT: clear to auscultation suman. ABSENT: rales, rhonchi, wheezes Cardiovascular exam: PRESENT: RRR. ABSENT: diastolic murmur, rubs, systolic murmur Pulses: PRESENT: normal dorsalis pedis pul GI/Abdominal exam: PRESENT: normal bowel sounds, soft. ABSENT: distended, guarding, mass, organolmegaly, rebound, tenderness Rectal exam: PRESENT: deferred Extremities exam: PRESENT: full ROM. ABSENT: calf tenderness, clubbing, pedal edema Neurological exam: PRESENT: alert, awake, oriented to person, oriented to place, CN II-XII grossly intact. ABSENT: motor sensory deficit Results Laboratory Results: 10/15/18 05:08 10/15/18 05:08 10/05/18 10/05/18 13:30 13:30 Creatine Kinase 100 Troponin I < 0.012 Impressions: Hip X-Ray 10/05/18 12:35 IMPRESSION: Mild bilateral degenerative changes. No acute fracture or dislocation. Pelvis X-Ray 10/05/18 13:11 IMPRESSION: NEGATIVE STUDY OF THE RIGHT HIP. NO RADIOGRAPHIC EVIDENCE OF ACUTE INJURY. Chest X-Ray 10/05/18 18:08 IMPRESSION: Mild pulmonary edema without consolidation or pleural effusion. Pelvis CT 10/07/18 00:00 IMPRESSION: 1. Fracture of the left superior pubic ramus. 2. Extensive bone destruction involving the sacrum and the adjacent right ilium. Is there a known neoplasm? Consider biopsy. Abdomen/Pelvis CT 10/10/18 00:00 IMPRESSION: 1. No acute finding in the abdomen or pelvis. 2. Large lytic lesion in the sacrum and adjacent right ilium. There are subtle sclerotic lesions in the vertebral bodies concerning for metastases. 3. 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 4. Mild diverticulosis coli. Chest CT 10/10/18 00:00 IMPRESSION: Right lower lobe pneumonia. Mild dependent atelectasis in the left base. Small right pleural effusion. Bone Biopsy CT 10/12/18 09:24 IMPRESSION: CT GUIDED BIOPSY OF THE LYTIC LESION WITHIN THE RIGHT ILIUM PERFORMED WITHOUT IMMEDIATE COMPLICATION. PATHOLOGY PENDING. Assessment and Plan - Diagnosis (1) Bone metastases Is this a current diagnosis for this admission?: Yes Plan: Initiated on radiation treatment per orthopedics and oncology. (2) Primary cancer of right lower lobe of lung Is this a current diagnosis for this admission?: Yes Plan: As per #1. Oncology following. She will need further work-up for this and outpatient follow-up with oncology. (3) [id number] kidney injury Qualifiers: Acute renal failure type: unspecified Chronic kidney disease stage: stage 3 (moderate) Qualified Code(s): N17.9 - Acute kidney failure, unspecified; N18.3 - Chronic kidney disease, stage 3 (moderate) Is this a current diagnosis for this admission?: Yes Plan: Resolved with IV hydration. (4) COPD (chronic obstructive pulmonary disease) Qualifiers: COPD type: emphysema Emphysema type: centrilobular Qualified Code(s): J43.2 - Centrilobular emphysema Is this a current diagnosis for this admission?: Yes Plan: Not in exacerbation. Breathing treatments as needed. (5) Hypertension Qualifiers: Hypertension type: essential hypertension Qualified Code(s): I10 - Essential (primary) hypertension Is this a current diagnosis for this admission?: Yes Plan: Controlled. - Time Time Spent with patient: 25-34 minutes
[2018-10-19 14:11] LABS: ANION GAP 10 (5-19); BLOOD UREA NITROGEN 27 mg/dL (7-20); CALCIUM 10.6 mg/dL (8.4-10.2); CARBON DIOXIDE 31 mmol/L (22-30); CHLORIDE 90 mmol/L (98-107); GLUCOSE 124 mg/dL (75-110)
[2018-10-19 14:13] LABS: POTASSIUM 5.9 mmol/L (3.6-5.0)
[2018-10-20] MEDS: ALBUTEROL SULFATE 0.042% NEB (1.25 MG/3 ML) AMPUL NEB SCH ×4 (02:21→19:51)
[2018-10-20] MEDS: HEPARIN SOD (PORCINE) 5,000 UNIT/ML 1 ML VIAL SUBCUT SCH ×3 (06:33→22:49)
--- NOTE | 2018-10-20 08:41 | PDOC PROGRESS REPORT ---
Subjective Progress Note for:: 10/20/18 Subjective:: Had a long discussion with [facility] with [facility], they have a close relationship with [facility], the assisted care facility patient was And before she came in. They feel like she could potentially go back to assisted care situation as long as hospice was on board, and the services provided would be enough to appropriately care for the patient. I have discussed this with Dr. Stevenson, who will be talking with the daughter today and I have asked nursing to let me know when the daughter comes in so that she can call me and I talked about this. Of note, as the patient is still mostly bedbound, that we would not consider any systemic chemotherapy. Once radiation therapy finishes, no other therapy would be considered. Reason For Visit: IRON DEFICIENCY ANEMIA,ACUTE ON CHRONIC KIDNEY Physical Exam Vital Signs: Temp Pulse Resp BP Pulse Ox 97.9 F 76 16 115/60 94 10/19/18 23:46 10/20/18 08:05 10/20/18 08:05 10/19/18 23:46 10/20/18 08:05 Intake & Output 10/19/18 10/20/18 10/21/18 06:59 06:59 06:59 Intake Total 580 612 Output Total 900 1500 Balance -320 -888 Weight 35.3 kg 35.3 kg General appearance: PRESENT: no acute distress, well-developed, well-nourished Head exam: PRESENT: atraumatic, normocephalic Eye exam: PRESENT: conjunctiva pink, EOMI, PERRLA. ABSENT: scleral icterus Ear exam: PRESENT: normal external ear exam Mouth exam: PRESENT: moist, tongue midline Neck exam: ABSENT: carotid bruit, JVD, lymphadenopathy, thyromegaly Respiratory exam: PRESENT: clear to auscultation suman. ABSENT: rales, rhonchi, wheezes Cardiovascular exam: PRESENT: RRR. ABSENT: diastolic murmur, rubs, systolic murmur Pulses: PRESENT: normal dorsalis pedis pul Vascular exam: PRESENT: normal capillary refill GI/Abdominal exam: PRESENT: normal bowel sounds, soft. ABSENT: distended, guarding, mass, organolmegaly, rebound, tenderness Rectal exam: PRESENT: deferred Extremities exam: PRESENT: full ROM. ABSENT: calf tenderness, clubbing, pedal edema Neurological exam: PRESENT: alert, awake, oriented to person, oriented to place, oriented to time, oriented to situation, CN II-XII grossly intact. ABSENT: motor sensory deficit Psychiatric exam: PRESENT: appropriate affect, normal mood. ABSENT: homicidal ideation, suicidal ideation Skin exam: PRESENT: dry, intact, warm. ABSENT: cyanosis, rash Results Laboratory Results: 10/15/18 05:08 10/19/18 13:20 10/19/18 13:20 Sodium 131.3 L Potassium 5.9 H Chloride 90 L Carbon Dioxide 31 H Anion Gap 10 BUN 27 H Creatinine 1.15 Est GFR ( Amer) 56 L Est GFR (Non-Af Amer) 46 L Glucose 124 H Calcium 10.6 H 10/05/18 10/05/18 13:30 13:30 Creatine Kinase 100 Troponin I < 0.012 Impressions: Hip X-Ray 10/05/18 12:35 IMPRESSION: Mild bilateral degenerative changes. No acute fracture or dislocation. Pelvis X-Ray 10/05/18 13:11 IMPRESSION: NEGATIVE STUDY OF THE RIGHT HIP. NO RADIOGRAPHIC EVIDENCE OF ACUTE INJURY. Chest X-Ray 10/05/18 18:08 IMPRESSION: Mild pulmonary edema without consolidation or pleural effusion. Pelvis CT 10/07/18 00:00 IMPRESSION: 1. Fracture of the left superior pubic ramus. 2. Extensive bone destruction involving the sacrum and the adjacent right ilium. Is there a known neoplasm? Consider biopsy. Abdomen/Pelvis CT 10/10/18 00:00 IMPRESSION: 1. No acute finding in the abdomen or pelvis. 2. Large lytic lesion in the sacrum and adjacent right ilium. There are subtle sclerotic lesions in the vertebral bodies concerning for metastases. 3. 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 4. Mild diverticulosis coli. Chest CT 10/10/18 00:00 IMPRESSION: Right lower lobe pneumonia. Mild dependent atelectasis in the left base. Small right pleural effusion. Bone Biopsy CT 10/12/18 09:24 IMPRESSION: CT GUIDED BIOPSY OF THE LYTIC LESION WITHIN THE RIGHT ILIUM PERFORMED WITHOUT IMMEDIATE COMPLICATION. PATHOLOGY PENDING. Assessment & Plan - Diagnosis (1) Bone metastases Is this a current diagnosis for this admission?: Yes Plan: Radiation finishing, plan as above (2) Primary cancer of right lower lobe of lung Is this a current diagnosis for this admission?: Yes Plan: Radiation as above, no further treatment planned up to that. Today spent 45 minutes in coordination of care.
[2018-10-20] MEDS: SODIUM CHLORIDE NASAL SPRAY 44 ML NASL SCH ×4 (11:42→22:49)
[2018-10-20] MEDS: FLUTICASONE/VILANTEROL 200-25 MCG/DOSE IH SCH (11:42)
[2018-10-20] MEDS: AMLODIPINE BESYLATE 5 MG TABLET PO SCH (11:42)
[2018-10-20] MEDS: ACETAMINOPHEN 325 MG TABLET PO PRN (11:42)
[2018-10-20] MEDS: MAGNESIUM HYDROXIDE SUSP 30 ML UDCUP PO SCH (11:43)
[2018-10-20] MEDS: PREDNISONE 10 MG TABLET PO SCH (11:43)
[2018-10-20] MEDS: FENTANYL 25 MCG/HR PATCH.TD72 TD SCH (11:43)
[2018-10-20] MEDS: LORAZEPAM 0.5 MG TABLET PO SCH ×2 (11:43→22:44)
[2018-10-20] MEDS: NICOTINE 21 MG/24 HR PATCH.TD24 TD SCH (11:44)
[2018-10-20] MEDS: LOSARTAN POTASSIUM 50 MG TABLET PO SCH (12:00)
[2018-10-20] MEDS: OXYBUTYNIN CHLORIDE 5 MG TABLET PO SCH (12:00)
--- NOTE | 2018-10-20 15:12 | PDOC PROGRESS REPORT ---
Subjective Progress Note for:: 10/20/18 Subjective:: This is a 78-year-old female who initially presented with leg weakness and a fall. Patient was later found to have bony lytic metastatic lesions on the sacrum deemed possibly from a metastatic lung cancer. She was also found to have an DEIRDRE on top of her CKD. Orthopedics and oncology evaluated patient. They have recommended radiotherapy. 10/18: Patient is going for her 2nd radiation treatment today. No acute event overnight. She denies acute complaints. 10/19: Patient has very hearing problem. She does say she is having back and pelvic pain this morning. Discussed with hem/onc who has recommended RT until wednesday. Will further discuss plan of care and disposition with POA/family. 10/20: No acute event overnight. Has acute complaints. Patient has poor hearing but she is actually coherent and oriented with communicating through writing. She is able to respond and answer appropriately after she reads what is written on paper. We discussed in length her diagnosis. She verbalized that she understands she has a likely primary metastatic lung cancer to the bones. She asked multiple questions including why the cancer was not caught early when she had previous x-rays. She also ask if the radiation will cure the cancer. All her questions were answered by this provider. She verbalized understanding that radiation is not curative and is palliative to help potentially with her bone mets related pain. We also discussed hospice service in length. Patient is receptive to hospice but she says she would want to know more about hospice care. This provider offered her that we could have somebody from hospice come to talk to her more about it. She also verbalized she would want to involve her daughter in this discussion before they make their final decision and transition to hospice. Reason For Visit: IRON DEFICIENCY ANEMIA,ACUTE ON CHRONIC KIDNEY Physical Exam Vital Signs: Temp Pulse Resp BP Pulse Ox 98.6 F 76 16 135/57 H 94 10/20/18 08:03 10/20/18 08:05 10/20/18 08:05 10/20/18 08:03 10/20/18 08:05 Intake & Output 10/19/18 10/20/18 10/21/18 06:59 06:59 06:59 Intake Total 580 612 Output Total 900 1500 Balance -320 -888 Weight 77 lb 13.171 oz 77 lb 13.171 oz Results Laboratory Results: 10/15/18 05:08 10/19/18 13:20 10/19/18 13:20 Sodium 131.3 L Potassium 5.9 H Chloride 90 L Carbon Dioxide 31 H Anion Gap 10 BUN 27 H Creatinine 1.15 Est GFR ( Amer) 56 L Est GFR (Non-Af Amer) 46 L Glucose 124 H Calcium 10.6 H 10/05/18 10/05/18 13:30 13:30 Creatine Kinase 100 Troponin I < 0.012 Impressions: Hip X-Ray 10/05/18 12:35 IMPRESSION: Mild bilateral degenerative changes. No acute fracture or dislocation. Pelvis X-Ray 10/05/18 13:11 IMPRESSION: NEGATIVE STUDY OF THE RIGHT HIP. NO RADIOGRAPHIC EVIDENCE OF ACUTE INJURY. Chest X-Ray 10/05/18 18:08 IMPRESSION: Mild pulmonary edema without consolidation or pleural effusion. Pelvis CT 10/07/18 00:00 IMPRESSION: 1. Fracture of the left superior pubic ramus. 2. Extensive bone destruction involving the sacrum and the adjacent right ilium. Is there a known neoplasm? Consider biopsy. Abdomen/Pelvis CT 10/10/18 00:00 IMPRESSION: 1. No acute finding in the abdomen or pelvis. 2. Large lytic lesion in the sacrum and adjacent right ilium. There are subtle sclerotic lesions in the vertebral bodies concerning for metastases. 3. 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 4. Mild diverticulosis coli. Chest CT 10/10/18 00:00 IMPRESSION: Right lower lobe pneumonia. Mild dependent atelectasis in the left base. Small right pleural effusion. Bone Biopsy CT 10/12/18 09:24 IMPRESSION: CT GUIDED BIOPSY OF THE LYTIC LESION WITHIN THE RIGHT ILIUM PERFOR MED WITHOUT IMMEDIATE COMPLICATION. PATHOLOGY PENDING. Assessment and Plan - Diagnosis (1) Bone metastases Is this a current diagnosis for this admission?: Yes Plan: Initiated on radiation treatment per orthopedics and oncology. She will get her last radiation treatment tomorrow. (2) Primary cancer of right lower lobe of lung Is this a current diagnosis for this admission?: Yes Plan: As per #1. Oncology following. She will need further work-up for this and outpatient follow-up with oncology. (3) [id number] kidney injury Qualifiers: Acute renal failure type: unspecified Chronic kidney disease stage: stage 3 (moderate) Qualified Code(s): N17.9 - Acute kidney failure, unspecified; N18.3 - Chronic kidney disease, stage 3 (moderate) Is this a current diagnosis for this admission?: Yes Plan: Resolved with IV hydration. (4) COPD (chronic obstructive pulmonary disease) Qualifiers: COPD type: emphysema Emphysema type: centrilobular Qualified Code(s): J43.2 - Centrilobular emphysema Is this a current diagnosis for this admission?: Yes Plan: Not in exacerbation. Breathing treatments as needed. (5) Hypertension Qualifiers: Hypertension type: essential hypertension Qualified Code(s): I10 - Essential (primary) hypertension Is this a current diagnosis for this admission?: Yes Plan: Controlled. - Time Time Spent with patient: 25-34 minutes
[2018-10-21] MEDS: ALBUTEROL SULFATE 0.042% NEB (1.25 MG/3 ML) AMPUL NEB SCH ×3 (02:39→14:01)
[2018-10-21] MEDS: HEPARIN SOD (PORCINE) 5,000 UNIT/ML 1 ML VIAL SUBCUT SCH ×2 (06:00→13:47)
--- NOTE | 2018-10-21 08:57 | PDOC PROGRESS REPORT ---
Subjective Progress Note for:: 10/21/18 Subjective:: No acute events, long discussion w/ daughter, 45 min, plan to see if d/c back to [facility] possible. Reason For Visit: IRON DEFICIENCY ANEMIA,ACUTE ON CHRONIC KIDNEY Physical Exam Vital Signs: Temp Pulse Resp BP Pulse Ox 98.2 F 93 18 111/53 L 90 L 10/20/18 14:48 10/21/18 08:42 10/21/18 08:42 10/20/18 14:48 10/21/18 08:42 Intake & Output 10/20/18 10/21/18 10/22/18 06:59 06:59 06:59 Intake Total 612 1514 Output Total 1500 2200 Balance -888 -686 Weight 35.3 kg 33.1 kg General appearance: PRESENT: no acute distress, well-developed, well-nourished Head exam: PRESENT: atraumatic, normocephalic Eye exam: PRESENT: conjunctiva pink, EOMI, PERRLA. ABSENT: scleral icterus Ear exam: PRESENT: normal external ear exam Mouth exam: PRESENT: moist, tongue midline Neck exam: ABSENT: carotid bruit, JVD, lymphadenopathy, thyromegaly Respiratory exam: PRESENT: clear to auscultation suman. ABSENT: rales, rhonchi, wheezes Cardiovascular exam: PRESENT: RRR. ABSENT: diastolic murmur, rubs, systolic murmur Pulses: PRESENT: normal dorsalis pedis pul Vascular exam: PRESENT: normal capillary refill GI/Abdominal exam: PRESENT: normal bowel sounds, soft. ABSENT: distended, guarding, mass, organolmegaly, rebound, tenderness Rectal exam: PRESENT: deferred Extremities exam: PRESENT: full ROM. ABSENT: calf tenderness, clubbing, pedal edema Neurological exam: PRESENT: alert, awake, oriented to person, oriented to place, oriented to time, oriented to situation, CN II-XII grossly intact. ABSENT: motor sensory deficit Psychiatric exam: PRESENT: appropriate affect, normal mood. ABSENT: homicidal ideation, suicidal ideation Skin exam: PRESENT: dry, intact, warm. ABSENT: cyanosis, rash Results Laboratory Results: 10/15/18 05:08 10/19/18 13:20 10/05/18 10/05/18 13:30 13:30 Creatine Kinase 100 Troponin I < 0.012 Impressions: Hip X-Ray 10/05/18 12:35 IMPRESSION: Mild bilateral degenerative changes. No acute fracture or dislocation. Pelvis X-Ray 10/05/18 13:11 IMPRESSION: NEGATIVE STUDY OF THE RIGHT HIP. NO RADIOGRAPHIC EVIDENCE OF ACUTE INJURY. Chest X-Ray 10/05/18 18:08 IMPRESSION: Mild pulmonary edema without consolidation or pleural effusion. Pelvis CT 10/07/18 00:00 IMPRESSION: 1. Fracture of the left superior pubic ramus. 2. Extensive bone destruction involving the sacrum and the adjacent right ilium. Is there a known neoplasm? Consider biopsy. Abdomen/Pelvis CT 10/10/18 00:00 IMPRESSION: 1. No acute finding in the abdomen or pelvis. 2. Large lytic lesion in the sacrum and adjacent right ilium. There are subtle sclerotic lesions in the vertebral bodies concerning for metastases. 3. 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 4. Mild diverticulosis coli. Chest CT 10/10/18 00:00 IMPRESSION: Right lower lobe pneumonia. Mild dependent atelectasis in the left base. Small right pleural effusion. Bone Biopsy CT 10/12/18 09:24 IMPRESSION: CT GUIDED BIOPSY OF THE LYTIC LESION WITHIN THE RIGHT ILIUM PERFORMED WITHOUT IMMEDIATE COMPLICATION. PATHOLOGY PENDING. Assessment & Plan - Diagnosis (1) Bone metastases Is this a current diagnosis for this admission?: Yes Plan: Last xrt today, pain seems better but hard to gauge w/ communications issues (2) Primary cancer of right lower lobe of lung Is this a current diagnosis for this admission?: Yes Plan: No further chemo planned
[2018-10-21] MEDS: SODIUM CHLORIDE NASAL SPRAY 44 ML NASL SCH ×3 (09:33→15:26)
[2018-10-21] MEDS: FLUTICASONE/VILANTEROL 200-25 MCG/DOSE IH SCH (09:34)
[2018-10-21] MEDS: NICOTINE 21 MG/24 HR PATCH.TD24 TD SCH (09:35)
[2018-10-21] MEDS: ACETAMINOPHEN 325 MG TABLET PO PRN (09:35)
[2018-10-21] MEDS: LORAZEPAM 0.5 MG TABLET PO SCH (09:35)
[2018-10-21] MEDS: AMLODIPINE BESYLATE 5 MG TABLET PO SCH (09:35)
[2018-10-21] MEDS: OXYBUTYNIN CHLORIDE 5 MG TABLET PO SCH (09:36)
[2018-10-21] MEDS: MAGNESIUM HYDROXIDE SUSP 30 ML UDCUP PO SCH (09:36)
[2018-10-21] MEDS: PREDNISONE 10 MG TABLET PO SCH (09:36)
[2018-10-21] MEDS ORDERED: HYDROCODONE/ACETAMINOPHEN 5-325 MG TABLET PO PRN (10:18)
--- NOTE | 2018-10-21 11:54 | PDOC DISCHARGE SUMMARY ---
General - Admit/Disc Date/PCP Admission Date/Primary Care Provider: 10/05/18 18:22 MAURY CHANG Discharge Date: 10/21/18 - Discharge Diagnosis (1) Bone metastases Is this a current diagnosis for this admission?: Yes (2) Primary cancer of right lower lobe of lung Is this a current diagnosis for this admission?: Yes (3) [id number] kidney injury Is this a current diagnosis for this admission?: Yes (4) COPD (chronic obstructive pulmonary disease) Is this a current diagnosis for this admission?: Yes (5) Hypertension Is this a current diagnosis for this admission?: Yes - Additional Information Resuscitation Status: Full Code Prescriptions: Docusate Sodium [Colace 100 mg Capsule] 100 mg PO DAILY #30 capsule Fentanyl [Duragesic 25 mcg/hr Transdermal Patch] 1 each TD Q3DAYS #5 patch.td72 Hydrocodone/Acetaminophen [[place] 5-325 mg Tablet] 1 tab PO Q6HP PRN #30 tablet PRN Reason: For Pain Losartan Potassium [Cozaar 50 mg Tablet] 50 mg PO DAILY #30 tablet Home Medications: Acetaminophen [Tylenol 325 mg Tablet] 650 mg PO Q4HP PRN 10/05/18 Albuterol Sulfate [Albuterol Sulfate Hfa] 2 puff IH Q8HP PRN 10/05/18 Albuterol Sulfate [Ventolin 0.083% Neb 2.5 mg/3 mL Ampul] 3 ml NEB Q8 10/05/18 Fluticasone Propionate [Flonase Nasal Oldhams 50 Mcg/Oldhams 16 gm] 1 spray NASL BID 10/05/18 Fluticasone/Salmeterol [Advair 500-50 Diskus 14 Dose/Diskus] 1 puff IH Q12 10/05/18 Furosemide [Lasix 20 mg Tablet] 10 mg PO DAILY 10/05/18 Guaifenesin/D-Methorphan Hb [Tussin Dm Liquid] 10 ml PO Q6HP PRN 10/05/18 Hydrochlorothiazide [Hydrodiuril 12.5 mg Tablet] 12.5 mg PO DAILY 10/05/18 Lorazepam [Ativan 0.5 mg Tablet] 0.25 mg PO Q12 10/05/18 Meloxicam [Mobic] 7.5 mg PO DAILY 10/05/18 Oxybutynin Chloride [Ditropan 5 mg Tablet] 5 mg PO DAILY 10/05/18 Polyethylene Glycol 3350 [Miralax Powder 17 gm/Packet] 17 gm PO DAILYP PRN 10/05/18 Prednisone [Deltasone 10 mg Tablet] 10 mg PO DAILY 10/05/18 Docusate Sodium [Colace 100 mg Capsule] 100 mg PO DAILY #30 capsule 10/21/18 Fentanyl [Duragesic 25 mcg/hr Transdermal Patch] 1 each TD Q3DAYS #5 patch.td72 10/21/18 Hydrocodone/Acetaminophen [[place] 5-325 mg Tablet] 1 tab PO Q6HP PRN #30 tablet 10/21/18 Losartan Potassium [Cozaar 50 mg Tablet] 50 mg PO DAILY #30 tablet 10/21/18 History of Present Illness History of Present Illness: Admitting hospitalist's H&P: YAEL FRANCISCO is a 78 year old female who resides at an assisted living facility in the area who was in her usual state of health when she was walking to the cafeteria and felt weak and her legs gave out on her and she fell. She says her hip is been aching her for about a week. She said prior to this she has not fallen or suffered any kind of trauma. Please note she is very hard of hearing any have to yell into her left ear for her to hear you. She was brought to the ER and fractures of the left hip and the pelvis show no evidence of fracture. She says is a little sore and it aches. Her hemoglobin was noted to be low with a low MCV. She normally has some chronic kidney disease with a creatinine of around 1.2, and her BUN and creatinine were elevated today. Apparently she takes Lasix and HCTZ at home for blood pressure. Looks like those were last filled on September 26 and the respectively. She is being admitted for some packed red blood cells, some IV fluids, checking of her iron levels, and physical therapy. She was also hypertensive whenever I saw her but this is probably because she was in pain at that time had not gotten any pain medication. Hospital Course Hospital Course: This is a 78-year-old female who initially presented with leg weakness and a fall. Patient was later found to have bony lytic metastatic lesions on the sacrum deemed possibly from a metastatic lung cancer. She was also found to have an DEIRDRE on top of her CKD. Orthopedics and oncology evaluated patient. They have recommended radiotherapy. 10/18: Patient is going for her 2nd radiation treatment today. No acute event overnight. She denies acute complaints. 10/19: Patient has very severe hearing problem. She does say she is having back and pelvic pain this morning. Discussed with hem/onc who has recommended RT until wednesday. Will further discuss plan of care and disposition with POA/family. 10/20: Patient has poor hearing but she is actually coherent and oriented with communicating through writing. She is able to respond and answer appropriately after she reads what is written on paper. We discussed in length her diagnosis. She verbalized that she understands she has a likely primary metastatic lung cancer to the bones. She asked multiple questions including why the cancer was not caught early when she had previous x-rays. She also ask if the radiation will cure the cancer. All her questions were answered by this provider. She verbalized understanding that radiation is not curative and is palliative to help potentially with her bone mets related pain. We also discussed hospice service in length. Patient is receptive to hospice but she says she would want to know more about hospice care. This provider offered her that we could have somebody from hospice come to talk to her more about it. She also verbalized she would want to involve her daughter in this discussion before they make their final decision and transition to hospice. 10/21: Rediscussed with patient and daughter/DPOA. They are amenable to having her go back to [facility] under hospice care. She completed here radiation tr eatment today. Her code status was also discussed in length and she is now a DNR/DNI. Physical Exam Vital Signs: Temp Pulse Resp BP Pulse Ox 100.1 F 93 18 124/53 L 90 L 10/21/18 07:51 10/21/18 08:42 10/21/18 08:42 10/21/18 07:51 10/21/18 08:42 Intake & Output 10/20/18 10/21/18 10/22/18 06:59 06:59 06:59 Intake Total 612 1514 Output Total 1500 2200 Balance -138 -802 Weight 77 lb 13.171 oz 72 lb 15.568 oz General appearance: PRESENT: no acute distress, well-developed, well-nourished Head exam: PRESENT: atraumatic, normocephalic Eye exam: PRESENT: conjunctiva pink, EOMI, PERRLA. ABSENT: scleral icterus Ear exam: PRESENT: normal external ear exam Mouth exam: PRESENT: moist, tongue midline Neck exam: ABSENT: carotid bruit, JVD, lymphadenopathy, thyromegaly Respiratory exam: PRESENT: clear to auscultation suman. ABSENT: rales, rhonchi, wheezes Cardiovascular exam: PRESENT: RRR. ABSENT: diastolic murmur, rubs, systolic murmur Pulses: PRESENT: normal dorsalis pedis pul GI/Abdominal exam: PRESENT: normal bowel sounds, soft. ABSENT: distended, guarding, mass, organolmegaly, rebound, tenderness Rectal exam: PRESENT: deferred Neurological exam: PRESENT: alert, awake, oriented to person, oriented to place, oriented to time, oriented to situation, CN II-XII grossly intact. ABSENT: motor sensory deficit Results Laboratory Results: 10/15/18 05:08 10/19/18 13:20 10/05/18 10/05/18 13:30 13:30 Creatine Kinase 100 Troponin I < 0.012 Impressions: Hip X-Ray 10/05/18 12:35 IMPRESSION: Mild bilateral degenerative changes. No acute fracture or dislocation. Pelvis X-Ray 10/05/18 13:11 IMPRESSION: NEGATIVE STUDY OF THE RIGHT HIP. NO RADIOGRAPHIC EVIDENCE OF ACUTE INJURY. Chest X-Ray 10/05/18 18:08 IMPRESSION: Mild pulmonary edema without consolidation or pleural effusion. Pelvis CT 10/07/18 00:00 IMPRESSION: 1. Fracture of the left superior pubic ramus. 2. Extensive bone destruction involving the sacrum and the adjacent right ilium. Is there a known neoplasm? Consider biopsy. Abdomen/Pelvis CT 10/10/18 00:00 IMPRESSION: 1. No acute finding in the abdomen or pelvis. 2. Large lytic lesion in the sacrum and adjacent right ilium. There are subtle sclerotic lesions in the vertebral bodies concerning for metastases. 3. 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 4. Mild diverticulosis coli. Chest CT 10/10/18 00:00 IMPRESSION: Right lower lobe pneumonia. Mild dependent atelectasis in the left base. Small right pleural effusion. Bone Biopsy CT 10/12/18 09:24 IMPRESSION: CT GUIDED BIOPSY OF THE LYTIC LESION WITHIN THE RIGHT ILIUM PERFORMED WITHOUT IMMEDIATE COMPLICATION. PATHOLOGY PENDING. Qualifiers - * PATIENT BEING DISCHARGED WITH ANY OF THE FOLLOWING DIAGNOSIS: No VTE patient discharged on overlapping Therapy?: No Acute Heart Failure - Is this a Heart Failure Patient?: No LVEF < 40%?: No- if no continue to question #3 3. Anticoagulant therapy for permanect/persistent/paraoxysmal Afib or Aflutter: N/A
--- NOTE | 2018-10-21 12:00 | ADVANCED CARE ---
- Diagnosis (2) Bone metastases Diagnosis Current: Yes (3) [id number] kidney injury Diagnosis Current: Yes (4) COPD (chronic obstructive pulmonary disease) Diagnosis Current: Yes (5) Hypertension Diagnosis Current: Yes Resuscitation Status: Do Not Resuscitate Discussion: Discussed with patient and daughter/DPOA on bedside. Both express understanding about transitioning her to hospice and making her a DNR/DNI. Questions about her diagnosis, stage and radiation treatments were answered by this provider and were also answered through phone conversation with Dr. Larson.
[2018-10-21 14:52] VITALS: BP 142/69
== END 2018-10-21 18:47 | DRG 478 ==
LOC: ER 12:03 → EH 18:22 → 4N 19:43
PROVIDERS: ADMIT Family Medicine; ATTEND Family Medicine
PROC: 30233N1 Transfusion of Nonautologous Red Blood Cells into Peripheral Vein, Percutaneous Approach (ICD-10-PCS; 2018-10-05)
PROC: BB241ZZ Computerized Tomography (CT Scan) of Bilateral Lungs using Low Osmolar Contrast (ICD-10-PCS; 2018-10-10)
PROC: 0QB23ZX Excision of Right Pelvic Bone, Percutaneous Approach, Diagnostic (ICD-10-PCS; principal; 2018-10-12)
DX: C79.51 Secondary malignant neoplasm of bone (principal); S32.512A Fracture of superior rim of left pubis, initial encounter for closed fracture; N17.9 Acute kidney failure, unspecified; E44.0 Moderate protein-calorie malnutrition; C34.31 Malignant neoplasm of lower lobe, right bronchus or lung; Z68.1 Body mass index [BMI] 19.9 or less, adult; J44.9 Chronic obstructive pulmonary disease, unspecified; E87.5 Hyperkalemia; Z51.5 Encounter for palliative care; E86.0 Dehydration; N18.3 Chronic kidney disease, stage 3 (moderate); D63.1 Anemia in chronic kidney disease; W18.30XA Fall on same level, unspecified, initial encounter; I12.9 Hypertensive chronic kidney disease with stage 1 through stage 4 chronic kidney disease, or unspecified chronic kidney disease; E03.9 Hypothyroidism, unspecified; F32.9 Major depressive disorder, single episode, unspecified; D50.9 Iron deficiency anemia, unspecified; H91.13 Presbycusis, bilateral; M79.632 Pain in left forearm; Y92.89 Other specified places as the place of occurrence of the external cause; Z87.891 Personal history of nicotine dependence; Z74.01 Bed confinement status; Z82.49 Family history of ischemic heart disease and other diseases of the circulatory system; Z83.6 Family history of other diseases of the respiratory system
CPT/HCPCS: 20225; 36415; 36430; 71045; 71260; 72190; 72192; 74177; 80048; 80053; 81001; 82550; 82607; 82728; 82746; 82784; 83540; 83550; 83883; 84484; 85025; 85027; 85045; 85610; 85730; 86320; 86850; 86900; 86901; 86920; 88305; 88341; 88342; 93005; 93010; 94640; 96360; 96361; 99291; J1644; J1756; J1956; J2250; J3010; J3490; J7030; J7050; J7512; P9016; Q0138